=== PATIENT | male | born 1995 | race Caucasian/White ===

== ENCOUNTER 2016-12-15 04:44 | Emergency (ER) | payer OTHER ==
[~2016-12-15] VITALS: Ht 175.3 cm; Wt 83.6 kg
[~2016-12-15 04:44] MED LIST: CIPR-255 PO; FLM4 PO
[2016-12-15 04:47] VITALS: TEMP 37; Ht 175.3 cm; Wt 83.6 kg
[2016-12-15 05:42] LABS: URINE APPEARANCE TURBID (CLEAR); URINE BILIRUBIN NEG (NEG); URINE COLOR YELLOW; URINE EPITHELIAL CELL AUTO >30 /lpf (0-5); URINE NITRITE NEG (NEG); URINE PH >= 9.0 (4.5-7.5); URINE SPECIFIC GRAVITY 1.016 (1.000-1.030); UROBILINOGEN NEG (NEG); ZZUR CULT IF INDIC CLEAN CATCH YES
[2016-12-15 05:54] LABS: MANUAL MICROSCOPIC REQUIRED? NO; REVIEW REQ? YES
[2016-12-15 05:56] LABS: SULFASALICYLIC ACID POS (NEG)
[2016-12-15] MEDS ORDERED: PHENAZOPYRIDINE HCL 200 MG TAB PO STA (06:10)
--- NOTE | 2016-12-15 06:12 | EMERGENCY ROOM VISIT NOTE ---
History First contact with patient: 04:57 Chief Complaint: URINARY SYMPTOMS Stated Complaint: CAN'T URINATE History of Present Illness The patient is a 21 year old male who presents to the Emergency Room with complaints of urinary frequency and urgency and unable to empty his bladder who now Is Unable to Urinate. Patient Has a History of Bladder Infections and Kidney Stones. Patient denies chest pain, dyspnea, fever, chills, vomiting, diarrhea, back pain, testicular pain, penile pain. He follows with Dr. Fernandez from urology at [facility]. Review of Systems See HPI for pertinent positives & negatives. A total of 10 systems reviewed and were otherwise negative. Past Medical/Surgical History Medical Problems: (1) Bladder extrophy Surgical Problems: (1) H/O nephrostomy (2) S/P appendectomy Family History Patient reports no known family medical history. Social History Smoking Status: Current Every Day Smoker Drug Use: marijuana Housing Status: lives with family Occupation Status: employed Current/Historical Medications No Active Prescriptions or Reported Meds Physical Exam Vital Signs Date Time Temp Pulse Resp B/P (MAP) Pulse Ox O2 Delivery O2 Flow Rate FiO2 12/15/16 06:01 77 18 136/83 97 Room Air 12/15/16 04:47 37.0 95 18 144/85 96 Room Air Physical Exam VITALS: Vitals are noted on the nurse's note and reviewed by myself. Vital signs stable. GENERAL: Pleasant male, in no acute distress, nondiaphoretic, well-developed well-nourished. SKIN: The skin was without rashes, erythema, edema, or bruising. There is no tenting of the skin. Capillary reflex less than 2 seconds. HEAD: Normocephalic atraumatic. EARS: External auditory canals clear, tympanic membranes pearly hoskins without erythema or effusion bilaterally. EYES: Pupils equal round and reactive to light and accommodation. Conjunctivae without injection, sclerae without icterus. NOSE: Patent, turbinates without inflammation or discharge. MOUTH: Mucous membranes moist. Pharynx without erythema or exudate. Uvula midline. Airway patent. Tongue does not deviate. NECK: Supple without nuchal rigidity. No lymphadenopathy. No thyromegaly. Cervical spine is nontender. No JVD. HEART: Regular rate and rhythm without murmurs gallops or rubs. LUNGS: Clear to auscultation bilaterally without wheezes, rales or rhonchi. No dullness to percussion. No retractions or accessory muscle use. ABDOMEN: Positive bowel sounds x 4. Normal tympanic percussion. Soft, mild bladder tenderness, nontender, without masses or organomegaly. Leger sign negative. No guarding or rebound tenderness. No CVA tenderness MUSCULOSKELETAL: No muscle atrophy, erythema, or edema noted. NEURO: Patient was alert and oriented to person place and time. Normal sensation to light and sharp touch. No focal neurological deficits. Medical Decision & Procedures Laboratory Results Test 12/15/16 05:28 Urine Color YELLOW Urine Appearance TURBID (CLEAR) Urine pH >= 9.0 (4.5-7.5) Urine Specific [place] 1.016 (1.000-1.030) Urine Protein 2+ (NEG) Urine Glucose (UA) NEG (NEG) Urine Ketones NEG (NEG) Urine Occult Blood 2+ (NEG) Urine Nitrite NEG (NEG) Urine Bilirubin NEG (NEG) Urine Urobilinogen NEG (NEG) Urine Leukocyte Esterase LARGE (NEG) Urine WBC (Auto) >30 /hpf (0-5) Urine RBC (Auto) 5-10 /hpf (0-4) Urine Hyaline Casts (Auto) 0 /lpf (0-5) Urine Epithelial Cells (Auto) >30 /lpf (0-5) Urine Bacteria (Auto) 4+ (NEG) Urine Renal Epithelial Cells /lpf (0-5) Urine Crystals TRIPLE PHOSPHATE Urine Pathogenic Casts /lpf (0) Urine Yeast (Auto) (NONE PRSENT) ED Course Prior records/ancillary studies reviewed. Triage Nursing notes reviewed. The patient's history was concerning for unable to urinate Differential diagnosis: Etiologies such as UTI, obstruction, infections, renal colic, as well as others were entertained. Physical examination findings: As above. ER treatment provided: Bladder scan On reassessment the patient felt better. Diagnostics interpreted by me: The labs revealed urine concerning for infection and sent for culture Bladder scan shows 231 mL's Exam and history seem consistent with UTI. Patient is neurovascular neurologic intact. He is well-appearing. He is afebrile and nontoxic. By the evaluation outlined above emergent etiologies such as obstruction, inflammatory bowel disease, renal colic, as well as others were deemed relatively unlikely. The pt informed about the findings as listed above. All questions were answered and pleased with the treatment. Return instructions were outlined and the patient was discharged in stable condition. Outpatient prescription management: Bactrim, Pyridium Referral: The patient was referred back to their primary care physician for follow-up in 2 to 3 days for a recheck of the current condition. Case reviewed with my attending. Medical Decision As above Medication Reconcilliation Current Medication List: was personally reviewed by me Blood Pressure Screening Patient's blood pressure: Elevated blood pressure Blood pressure disposition: Elevated BP felt to be situational Impression Primary Impression: Urinary tract infection Departure Information Dispostion Home / Self-Care Condition GOOD Prescriptions No Active Prescriptions or Reported Meds Referrals Gallito Alston M.D. (MEDICAL) (PCP) Patient Instructions My [facility] Additional Instructions Trimethoprim-Sulfamethoxazole(Bactrim DS): Take one pill twice daily for 7 days for your urine infection. All antibiotics can cause diarrhea. If this occurs and you feel worse or it does not resolve in 1-2 days follow up with your doctor or return to the Emergency Department as this could be signs of serious underlying problems. Any medication can cause an allergic reaction, stop the pills immediately and return to the ER for rash, hives, breathing difficulties, or swelling. Macrobid(macrodantin) 100mg: Take one pill twice daily for 7 days for your urine infection. All antibiotics can cause diarrhea. If this occurs and you feel worse or it does not resolve in 1-2 days follow up with your doctor or return to the Emergency Department as this could be signs of serious underlying problems. Any medication can cause an allergic reaction, stop the pills immediately and return to the ER for rash, hives, breathing difficulties, or swelling. Pyridium 200mg: Take one pill three times daily as needed for urinary discomfort. This medication will turn your urine orange. This is normal and nothing to be concerned about. Ibuprofen(Motrin, Advil) may be used for fever or pain. Use 600mg every six hours as needed. Take with food. Avoid using more than 2400mg in a 24 hour period. Do not use 2400mg per day for more than three consecutive days without physician direction. Prolonged inappropriate use can lead to stomach upset or ulcers. (AND/OR) Acetaminophen(Tylenol) may be used for fever or pain. Use 1000mg every six hours as needed. Avoid using more than 3000mg in a 24 hour period. Rest and drink plenty of fluids as tolerated. Slow sips of water or sports drinks are recommended instead of large amounts all at once. Continue current medications. Once your stomach is settled start with a clear liquid diet (jello, soup broth, etc.) and then advance as tolerated. You should avoid full, heavy meals for about 24 hrs from the time your symptoms resolved. Return to the ER immediately for worsening or persistent abdominal/back pain, vomiting, fevers, worsening of your condition, or as needed. Follow up with your primary physician within 2-3 days for a recheck of the current condition. Problem Qualifiers Primary Impression: Urinary tract infection Urinary tract infection type: acute cystitis Hematuria presence: with hematuria Qualified Codes: N30.01 - Acute cystitis with hematuria
[2016-12-15] MEDS ORDERED: SULF800T23 PO (06:13)
[2016-12-15] MEDS ORDERED: PHEN-876 PO (06:13)
[2016-12-15] MEDS ORDERED: PHENAZOPYRIDINE HOME PACK 200 MG VIAL PO ONE (06:15)
[2016-12-15] MEDS ORDERED: SEPTRA DS HOME PACK 1 EA VIAL PO ONE (06:15)
[2016-12-15 06:44] VITALS: BP 126/72; PULSE 78; O2SAT 98
--- NOTE | 2016-12-18 18:51 | Pharmacy Progress Note ---
ED Pharmacist Culture FollowUp Date of Service: Dec 18, 2016. Attempted to contact patient again - no answer, no voicemail set-up, no message left.
[2017-02-16] MEDS ORDERED: ULT50X PO (14:09)
[2017-02-16] MEDS ORDERED: CPR500 PO (14:09)
== END 2016-12-15 06:45 | disposition home or self-care (01) ==
LOC: C.EDB 04:45
DX: N30.01 Acute cystitis with hematuria (principal); Q64.10 Exstrophy of urinary bladder, unspecified; F17.200 Nicotine dependence, unspecified, uncomplicated; F12.90 Cannabis use, unspecified, uncomplicated; Z87.442 Personal history of urinary calculi

== ENCOUNTER 2017-02-14 13:45 | Inpatient (IN) | payer OTHER ==
[~2017-02-14] VITALS: Ht 177.8 cm; Wt 84.1 kg
[2017-02-14 14:32] LABS: BASO % 0.2 %; BASO ABS # 0.02 K/uL (0-0.2); COMPLETE YES; EOS % 1.8 %; HEMATOCRIT 35.9 % (42-52); IG% 0.2 %; LYMPH ABS # 2.13 K/uL (1.2-3.4); MEAN CELL VOLUME 82.5 fL (80-100); MEAN CORPUSCULAR HEMOGLOBIN 28.5 pg (25-34); MEAN CORPUSCULAR HGB CONC 34.5 g/dl (32-36); MEAN PLATELET VOLUME 9.3 fL (7.4-10.4); MONO % 11.1 %; NEUT % 65.7 %; PLATELET COUNT 298 K/uL (130-400); RED BLOOD COUNT 4.35 M/uL (4.7-6.1); WHITE BLOOD COUNT 10.16 K/uL (4.8-10.8)
[2017-02-14 14:33] LABS: URINE APPEARANCE CLOUDY (CLEAR); URINE BILIRUBIN NEG (NEG); URINE COLOR YELLOW; URINE NITRITE POS (NEG); URINE SPECIFIC GRAVITY 1.006 (1.000-1.030); UROBILINOGEN NEG (NEG); ZZUR CULT IF INDIC CLEAN CATCH YES
[2017-02-14 14:36] LABS: MANUAL MICROSCOPIC REQUIRED? NO; REVIEW REQ? NO
[2017-02-14 14:52] LABS: BUN/CREATININE RATIO 12.7 (10-20); CALCIUM 9.7 mg/dl (8.5-10.1); CREATININE 1.9 mg/dl (0.60-1.40); POTASSIUM 3.6 mmol/L (3.5-5.1)
[2017-02-14 14:55] LABS: ALB/GLOB RATIO 0.9 (0.9-2)
[2017-02-14] MEDS ORDERED: MoRPHine SULFATE 4 MG/ML 1 ML CARP\\VIAL IV STA ×2 (15:14→16:33)
[2017-02-14] MEDS ORDERED: SODIUM CHLORIDE 0.9% 1000ML 1,000 ML IV ONE (15:14)
[2017-02-14] MEDS ORDERED: ONDANSETRON INJ 2 MG/ML 2 ML VIAL IV STA (15:14)
[2017-02-14] MEDS ORDERED: SODIUM CHLORIDE 0.9% 1000ML 1,000 ML IV STA (15:14)
--- NOTE | 2017-02-14 15:59 | DIAGNOSTIC IMAGING REPORT ---
ABD/PELVIS WITHOUT FOR STONE CT DOSE: 1039.39 mGycm HISTORY: Pain eval for stone, hernia, bladder issue TECHNIQUE: Multiaxial CT images of the abdomen and pelvis were performed without the use of intravenous and oral contrast according to the standard department stone protocol. A dose lowering technique was utilized adhering to the principles of ALARA. COMPARISON STUDY: 04/25/2016 FINDINGS: Lung bases are clear. Minimal dependent atelectasis. Stable bilateral renal hydronephrosis and hydroureters are moderate bladder wall thickening unchanged in the prior study. Small lateral bladder diverticuli also unchanged. Nonobstructive bowel pattern. Pancreas is unremarkable. Evidence for prior appendectomy. Several small inguinal and low pelvic nodes unchanged from the prior exam. IMPRESSION: 1. Chronic bilateral hydroureteronephrosis unchanged from the prior study. 2. No acute or interval change compared to the prior study. 3. No acute process of the abdomen or pelvis. The above report was generated using voice recognition software. It may contain grammatical, syntax or spelling errors. Electronically signed by: Vasu Cleveland M.D. 02/14/2017 3:57 PM Dictated Date/Time: 02/14/2017 3:52 PM
[2017-02-14] MEDS ORDERED: CEFTRIAXONE SOD INJ 1000 MG in DEXTROSE 5% 50ML IV ONE (16:45)
--- NOTE | 2017-02-14 17:28 | EMERGENCY ROOM VISIT NOTE ---
History Report prepared by Brooks: Stacey Barrera Under the Supervision of: Dr. Philipp Gordon M.D. First contact with patient: 14:47 Chief Complaint: ABDOMINAL PAIN Stated Complaint: STOMACH PAINS, DIFFICULTY URINATING Nursing Triage Summary: pt states abdominal pain bilateral lower quadrants with pain in mid back, pain began one week ago, pt states he had a bad week at work and pain has increased since. Pt states difficulty with bowel movements and nausea x 2 days, vomited x 3. Pt denies SHOB, chest pain at this time. Bowel sounds normoactive in all quadrants, pain on palpation all quadrants, more severe in RLQ. History of Present Illness The patient is a 22 year old male who presents to the Emergency Room with complaints of worsening lower mid abdominal pain for the past week. He has had nausea, vomiting, lower back pain, and burning with urination. He rates his pain as an 8/10 in severity. 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 He states that he typically has to push on his abdominal muscle to help him urinate and he has been unable to do that lately because of his pain. He feels like he is unable to fully drain his bladder now. He has a history of kidney stones but states that this does not feel like a stone. The patient denies fevers, chills, testicular pain, groin pain, and any recent trauma or injury. Source of History: patient Onset: 1 week ago Position: abdomen Symptom Intensity: 8/10 Timing: worsening Associated Symptoms: + nausea, + vomiting, + back pain, + urinary symptoms, No fevers, No chills Note: Pt denies testicular pain, groin pain, and any recent trauma or injury. Review of Systems See HPI for pertinent positives & negatives. A total of 10 systems reviewed and were otherwise negative. Past Medical & Surgical Medical Problems: (1) ARF (acute renal failure) (2) Bladder extrophy (3) UTI (urinary tract infection) Surgical Problems: (1) H/O nephrostomy (2) S/P appendectomy Old medical records were reviewed. Nurse's notes were reviewed and I agree with. Family History Patient reports no known family medical history. Social History Smoking Status: Current Every Day Smoker Alcohol Use: occasionally Drug Use: marijuana Marital Status: single Housing Status: lives with roommate Occupation Status: employed Current/Historical Medications No Active Prescriptions or Reported Meds Allergies Coded Allergies: No Known Allergies (Verified , 12/15/16) Physical Exam Vital Signs Date Time Temp Pulse Resp B/P (MAP) Pulse Ox O2 Delivery O2 Flow Rate FiO2 02/14/17 18:46 68 18 134/72 96 Room Air 02/14/17 17:05 37.2 71 16 138/80 96 Room Air 02/14/17 15:35 85 16 137/76 98 Room Air 02/14/17 13:54 37.3 96 18 142/92 99 Room Air Physical Exam General: Well developed well nourished non ill appearing young male in no acute distress, breathing comfortably on room air. Normal speech HEENT: Normal cephalic atraumatic. Pupils are equal round and reactive to light. Extraocular movements are intact. Oropharynx is pink with moist mucous membranes. No swelling of the mouth lips or tongue. Neck: Supple with a midline trachea. No meningeal signs or stiffness, no JVD or bruits. No Stridor. Chest: Clear to auscultation bilaterally. No wheezes or rhonchi. No increased work of breathing. Heart: regular rate and rhythm. Abdomen: Soft, mild to moderately tender to the suprapubic area, nondistended without rebound guarding or rigidity. Previous surgical scars, no hernia felt. Extremities: No cyanosis clubbing or edema. No calf tenderness or assymetry Spine/Back. Non tender to palpation. No CVA tenderness Skin: Good turgor without rashes. Neurologic exam: Cranial nerves two through 12 are intact. Motor and sensation are intact and symmetrical throughout, Medical Decision & Procedures ER Provider Diagnostic Interpretation: Radiology results as stated below per my review and radiologist interpretation: ABD/PELVIS WITHOUT FOR STONE CT DOSE: 1039.39 mGycm HISTORY: Pain eval for stone, hernia, bladder issue TECHNIQUE: Multiaxial CT images of the abdomen and pelvis were performed without the use of intravenous and oral contrast according to the standard department stone protocol. A dose lowering technique was utilized adhering to the principles of ALARA. COMPARISON STUDY: 04/25/2016 FINDINGS: Lung bases are clear. Minimal dependent atelectasis. Stable bilateral renal hydronephrosis and hydroureters are moderate bladder wall thickening unchanged in the prior study. Small lateral bladder diverticuli also unchanged. Nonobstructive bowel pattern. Pancreas is unremarkable. Evidence for prior appendectomy. Several small inguinal and low pelvic nodes unchanged from the prior exam. IMPRESSION: 1. Chronic bilateral hydroureteronephrosis unchanged from the prior study. 2. No acute or interval change compared to the prior study. 3. No acute process of the abdomen or pelvis. The above report was generated using voice recognition software. It may contain grammatical, syntax or spelling errors. Electronically signed by: Vasu Cleveland M.D. 02/14/2017 3:57 PM Dictated Date/Time: 02/14/2017 3:52 PM Laboratory Results 02/14/17 14:10 Red Blood Count 4.35, Mean Corpuscular Volume 82.5, Mean Corpuscular Hemoglobin 28.5, Mean Corpuscular Hemoglobin Concent 34.5, Mean Platelet Volume 9.3, Neutrophils (%) (Auto) 65.7, Lymphocytes (%) (Auto) 21.0, Monocytes (%) (Auto) 11.1, Eosinophils (%) (Auto) 1.8, Basophils (%) (Auto) 0.2, Neutrophils # (Auto ) 6.68, Lymphocytes # (Auto) 2.13, Monocytes # (Auto) 1.13, Eosinophils # (Auto ) 0.18, Basophils # (Auto) 0.02 02/14/17 14:10 Test 02/14/17 14:10 White Blood Count 10.16 K/uL (4.8-10.8) Red Blood Count 4.35 M/uL (4.7-6.1) Hemoglobin 12.4 g/dL (14.0-18.0) Hematocrit 35.9 % (42-52) Mean Corpuscular Volume 82.5 fL (80-100) Mean Corpuscular Hemoglobin 28.5 pg (25-34) Mean Corpuscular Hemoglobin Concent 34.5 g/dl (32-36) Platelet Count 298 K/uL (130-400) Mean Platelet Volume 9.3 fL (7.4-10.4) Neutrophils (%) (Auto) 65.7 % Lymphocytes (%) (Auto) 21.0 % Monocytes (%) (Auto) 11.1 % Eosinophils (%) (Auto) 1.8 % Basophils (%) (Auto) 0.2 % Neutrophils # (Auto) 6.68 K/uL (1.4-6.5) Lymphocytes # (Auto) 2.13 K/uL (1.2-3.4) Monocytes # (Auto) 1.13 K/uL (0.11-0.59) Eosinophils # (Auto) 0.18 K/uL (0-0.5) Basophils # (Auto) 0.02 K/uL (0-0.2) RDW Standard Deviation 39.0 fL (36.4-46.3) RDW Coefficient of Variation 12.9 % (11.5-14.5) Immature Granulocyte % (Auto) 0.2 % Immature Granulocyte # (Auto) 0.02 K/uL (0.00-0.02) Urine Color YELLOW Urine Appearance CLOUDY (CLEAR) Urine pH 7.0 (4.5-7.5) Urine Specific [place] 1.006 (1.000-1.030) Urine Protein NEG (NEG) Urine Glucose (UA) NEG (NEG) Urine Ketones NEG (NEG) Urine Occult Blood 2+ (NEG) Urine Nitrite POS (NEG) Urine Bilirubin NEG (NEG) Urine Urobilinogen NEG (NEG) Urine Leukocyte Esterase LARGE (NEG) Urine WBC (Auto) >30 /hpf (0-5) Urine RBC (Auto) 0-4 /hpf (0-4) Urine Hyaline Casts (Auto) 1-5 /lpf (0-5) Urine Epithelial Cells (Auto) 5-10 /lpf (0-5) Urine Bacteria (Auto) 2+ (NEG) Anion Gap 10.0 mmol/L (3-11) Est Creatinine Clear Calc Drug Dose 63.0 ml/min Estimated GFR () 56.7 Estimated GFR (Non- 49.0 BUN/Creatinine Ratio 12.7 (10-20) Calcium Level 9.7 mg/dl (8.5-10.1) Total Bilirubin 0.6 mg/dl (0.2-1) Direct Bilirubin 0.1 mg/dl (0-0.2) Aspartate Amino Transf (AST/SGOT) 23 U/L (15-37) Alanine Aminotransferase (ALT/SGPT) 28 U/L (12-78) Alkaline Phosphatase 82 U/L (45-117) Total Protein 8.1 gm/dl (6.4-8.2) Albumin 3.9 gm/dl (3.4-5.0) Globulin 4.1 gm/dl (2.5-4.0) Albumin/Globulin Ratio 0.9 (0.9-2) Lipase 113 U/L (73-393) Laboratory studies as stated above per my review. Medications Administered Medications (Trade) Dose Ordered Sig/Tiffany Route Start Time Stop Time Status Last Admin Dose Admin Morphine Sulfate (MoRPHine SULFATE INJ) 4 mg NOW STAT IV 02/14/17 15:14 02/14/17 15:16 DC 02/14/17 15:33 4 MG Ondansetron HCl (Zofran Inj) 4 mg NOW STAT IV 02/14/17 15:14 02/14/17 15:16 DC 02/14/17 15:34 4 MG Sodium Chloride 1,000 ml @ 999 mls/hr Q1H1M STAT IV 02/14/17 15:14 02/14/17 16:14 DC 02/14/17 15:34 999 MLS/HR Sodium Chloride 1,000 ml @ 150 mls/hr Q6H40M ONCE IV 02/14/17 15:14 02/14/17 21:53 02/14/17 15:34 150 MLS/HR Morphine Sulfate (MoRPHine SULFATE INJ) 4 mg NOW STAT IV 02/14/17 16:33 02/14/17 16:34 DC 02/14/17 16:40 4 MG Ceftriaxone Sodium 1000 mg/ Dextrose 60 ml @ 120 mls/hr NOW ONCE IV 02/14/17 16:45 02/14/17 17:14 DC 02/14/17 16:54 120 MLS/HR Acetaminophen (Tylenol Tab) 650 mg Q4H PRN PO 02/14/17 18:00 03/16/17 17:59 02/14/17 18:08 650 MG Morphine Sulfate (MoRPHine SULFATE INJ) 3 mg Q3HWA PRN IV 02/14/17 18:00 02/28/17 17:59 02/14/17 18:08 3 MG ED Course 1501: Past medical records reviewed. The patient was evaluated in room A11A, and a complete history and physical examination were performed. 1514: NSS 1000 ml @ 150 mls/hr IV, NSS 1000 ml @ 999 mls/hr IV, Zofran 4 mg IV, Morphine sulfate 4 mg IV 1631: I reassessed the patient at this time. He is still having pain. I discussed the results and treatment plan with the patient. I answered all pertaining questions that he had. He expressed understanding and verbalized agreement. 1633: Morphine sulfate 4 mg IV 1640: I spoke with Dr. Greenberg. We discussed the patients case. [facility]. 1645: Ceftriaxone Sodium 1000 mg/Dextrose 60 ml @ 120 mls/hr IV - I discussed the most appropriate medication with the ED pharmacist prior to ordering Medical Decision Differential diagnoses includes UTI, hernia, bladder obstruction, diverticulitis , electrolyte or metabolic abnormality. This patient comes in as described above. He was placed in room A 11. He is here for treatment and evaluation of lower abdominal pain. He has a extensive surgical history on his urinary tract as a child. He has not had any follow-up for many years however. He typically he does have to press on his bladder to urinate. He is afebrile. He is back pain but clinically isn't does not have findings to suggest pyelonephritis. IV access established hydrated normal saline he feels he is keeping up with his fluids. Urinalysis was obtained as well as blood work is urinalysis does suggest a UTI with a culture pending. He was given Rocephin 1 g IV after consultation ED pharmacist. CAT scan shows chronic bilateral hydroureteronephrosis. I am concerned however his creatinine is elevated at 1.9 up from 0.7. There may be post renal component. He is having a hard time emptying but is able to. They may also be renal even prerenal component. He think he needs to be observed for further treatment and evaluation. Have consulted Dr. Greenberg, who saw the patient emergency department. Medication Reconcilliation Current Medication List: was personally reviewed by me Blood Pressure Screening Patient's blood pressure: Normal blood pressure Consults Time Called: 1638 Consulting Physician: Dr. Greenberg Returned Call: [address] Greenberg. We discussed the patients case. The patient will be evaluated by the [facility] for further management. Impression Primary Impression: UTI (urinary tract infection) Additional Impressions: Suprapubic abdominal pain Renal failure Scribe Attestation The scribe's documentation has been prepared under my direction and personally reviewed by me in its entirety. I confirm that the note above accurately reflects all work, treatment, procedures, and medical decision making performed by me. Departure Information Dispostion Being Evaluated By Hospitalist Prescriptions No Active Prescriptions or Reported Meds Referrals Gallito Alston M.D. (MEDICAL) (PCP) Patient Instructions My [facility] Problem Qualifiers Primary Impression: UTI (urinary tract infection) Urinary tract infection type: site unspecified Hematuria presence: with hematuria Qualified Codes: N39.0 - Urinary tract infection, site not specified ; R31.9 - Hematuria, unspecified Additional Impressions: Renal failure Renal failure chronicity: unspecified chronicity Qualified Codes: N19 - Unspecified kidney failure
[2017-02-14] MEDS ORDERED: ACETAMINOPHEN 325 MG TAB PO PRN (18:00)
[2017-02-14] MEDS ORDERED: ALUMINUM/MAGNESIUM/SIMETH (MAALOX MAX) 30 ML UDC PO PRN (18:00)
[2017-02-14] MEDS ORDERED: MAGNESIUM HYDROXIDE SUSP 30 ML UDC PO PRN (18:00)
[2017-02-14] MEDS ORDERED: ONDANSETRON INJ 2 MG/ML 2 ML VIAL IV PRN (18:00)
[2017-02-14] MEDS ORDERED: MoRPHine SULFATE 2 MG/ML CARP ONE ×2 (18:03)
[2017-02-14] MEDS: MoRPHine SULFATE 4 MG/ML 1 ML CARP\\VIAL IV PRN ×2 (18:08→21:50)
[2017-02-14 19:30] VITALS: BP 130/83; PULSE 63; TEMP 36.5; O2SAT 96; Ht 177.8 cm; Wt 84.1 kg
[2017-02-14] MEDS: SODIUM CHLORIDE 0.9% 1000ML 1,000 ML IV SCH (20:08)
--- NOTE | 2017-02-14 20:19 | HISTORY & PHYSICAL EXAMINATION ---
DATE OF ADMISSION: 02/14/2017 CHIEF COMPLAINT: Lower abdominal pain. HISTORY OF PRESENT ILLNESS: This is a 22-year-old male with past medical history significant for exstrophy of bladder status post surgery, last surgery was in 2013 at [place], history of bilateral hydronephrosis, history of recurrent UTIs, urinary retention, hematuria, history of nephrolithiasis, who comes in for lower abdominal pain. The patient says the abdominal pain is going for about a week, was mild in nature, but he had some heavy work over the last few days and the pain has increased to 6/10 in severity, radiating to his back and he also has some nausea and couple of episode of vomiting. He has had UTIs in the past, but never had this kind of abdominal pain. Denies any fever, chills. He is also having difficulty peeing. He used to straight cath in the past , but no longer uses and he is able to pee himself okay, but the last few days, he is having some difficulty peeing. Denies any chest pain, no shortness of breath, no cough, no headaches, no dizziness, no blurred visions, no sore throat, no difficulty swallowing, no blood in the urine, no blood in the stools. Normal bladder and bowel movements. Appetite is not good for the last few days. Lives with room mates. ALLERGIES: No known drug allergies. PAST MEDICAL HISTORY: As mentioned above. PAST SURGICAL HISTORY: Cystoscopy, multiple ureteral reconstructions at [place], reconstruction of the bladder neck. He has history of nephrostomy tubes. Appendectomy, inguinal hernia repair. MEDICATIONS: Currently, the patient is not on any medications. FAMILY HISTORY: Significant for brother had heart disorder, sister has bipolar, mother has migraines. SOCIAL HISTORY: No smoking history. Alcohol occasional. No drug use. REVIEW OF SYMPTOMS: As per HPI. PHYSICAL EXAMINATION: GENERAL: The patient is of moderate built, not in distress. VITAL SIGNS: Temperature 37.2, pulse 71, respiratory rate 16, blood pressure 138/80, oxygen 96% on room air. HEENT: No pallor, no icterus. Pupils equal, round, and reactive to light. NECK: No JVD, no neck masses, no carotid bruits. Supple. CARDIOVASCULAR: S1, S2 heard, regular rate and rhythm, no murmur, no gallop. RESPIRATORY SYSTEM: Normal AP diameter. No accessory muscle use. No wheezing, no crackles. ABDOMEN: Soft, bowel sounds present. Mild right lower quadrant tenderness and no guarding. No rigidity. No distention. CENTRAL NERVOUS SYSTEM: Cranial nerves II through XII grossly intact. Nonfocal. EXTREMITIES: No edema. No erythema. LABORATORIES: WBC 10.1, hemoglobin 12.4, hematocrit 35.9, platelets 298. Sodium 140, potassium 3.6, , bicarb 21, BUN 24, creatinine 1.9, serum glucose 96, calcium 9.7. Total bilirubin 0.6, AST 25, ALT 24, and alkaline phosphatase 76. Lipase 113. Urinalysis positive for nitrite and leukocyte esterase. IMAGING DATA: CT of the abdomen and pelvis shows chronic bilateral hydroureteronephrosis unchanged from a prior study. No acute process of abdomen or pelvis. ASSESSMENT AND PLAN: This is a 22-year-old male, with history of multiple bladder surgeries, who presents with abdominal pain and possible urinary tract infection. 1. Abdominal pain, most likely from urinary tract infection and also having difficulty urinating, possible ureteral stricture from the surgeries. CT of abdomen and pelvis shows chronic bilateral hydroureteronephrosis. We will place him on IV Rocephin, follow the cultures and he is not following with a urologist, so we will consult urology for further recommendations and opinion. 2.Arf presented with cr 1.9. Mostly from above. On fluids and antibiotics will f/u labs 2. Deep venous thrombosis prophylaxis. SCDs for now. 3. Disposition: Admit to medical floor. Expect to discharge home and follow with family doctor. Level 1, full code. MTDD
[2017-02-14] MEDS ORDERED: IV FLUIDS COMPLETED PRN (20:30)
[2017-02-14] MEDS ORDERED: HYDROmorphone INJ 0.5 MG/0.5 ML SYR IV ONE (22:31)
[2017-02-14] MEDS ORDERED: TRAMADOL HCL 50 MG TAB PO PRN (22:45)
[2017-02-14] MEDS ORDERED: PHENAZOPYRIDINE HCL 100 MG TAB PO ONE (22:48)
[2017-02-14 23:30] VITALS: BP 130/83; PULSE 68; TEMP 36.5; O2SAT 97
[2017-02-15 00:05] VITALS: O2SAT 96
[2017-02-15] MEDS ORDERED: INFLUENZA VIRUS QUAD VACCINE 0.5 ML SYR IM. ONE (01:45)
[2017-02-15] MEDS ORDERED: INFLUENZA ADMINISTRATION CHARGE ONE (01:45)
[2017-02-15] MEDS: HYDROmorphone INJ 0.5 MG/0.5 ML SYR IV PRN ×7 (02:08→21:38)
[2017-02-15] MEDS: SODIUM CHLORIDE 0.9% 1000ML 1,000 ML IV SCH ×3 (04:15→23:26)
[2017-02-15 05:36] LABS: BASO % 0.3 %; BASO ABS # 0.02 K/uL (0-0.2); COMPLETE YES; EOS % 3.3 %; HEMATOCRIT 33.9 % (42-52); IG% 0.2 %; LYMPH % 28.4 %; LYMPH ABS # 1.87 K/uL (1.2-3.4); MEAN CELL VOLUME 84.1 fL (80-100); MEAN CORPUSCULAR HEMOGLOBIN 27.3 pg (25-34); MEAN CORPUSCULAR HGB CONC 32.4 g/dl (32-36); MEAN PLATELET VOLUME 9.1 fL (7.4-10.4); MONO % 13.1 %; NEUT % 54.7 %; PLATELET COUNT 225 K/uL (130-400); RED BLOOD COUNT 4.03 M/uL (4.7-6.1); WHITE BLOOD COUNT 6.58 K/uL (4.8-10.8)
[2017-02-15 06:06] LABS: BUN/CREATININE RATIO 11.1 (10-20); CALCIUM 8.8 mg/dl (8.5-10.1); CREATININE 1.8 mg/dl (0.60-1.40); MAGNESIUM 1.9 mg/dl (1.8-2.4); POTASSIUM 3.5 mmol/L (3.5-5.1)
[2017-02-15 07:06] VITALS: BP 110/70; PULSE 65; TEMP 37; O2SAT 97
--- NOTE | 2017-02-15 14:30 | Progress Note ---
Internal Med Progress Note Date of Service: Feb 15, 2017. Provider Documentation: SUBJECTIVE: Seen and examined at bedside States flank pain resolved but still has R> L Lower quadrant abdominal pain Nausea resolved Denies hematuria, CP, SOB, diarrhea Feels better OBJECTIVE: Vital Signs-as noted below Physical Exam: General Appearance:Moderately built and nourished, no apparent distress Head: normocephalic, Atraumatic Eyes: normal inspection, EOMI, PERRL Neck: supple, Trachea midline Respiratory/Chest: Normal breath sounds, CTA Cardiovascular: S1, S2, No murmur Abdomen/GI:Soft, RLQ tender, Bowel sounds present Extremities/Musculoskelatal:normal inspection, no edema Neurologic/Psych:grossly no focal neurological deficits Skin: normal color, warm, Surgical scars on abdomen Lab data as noted below. ASSESSMENT & PLAN: Patient is a 22 yr-old male, with PMH of multiple bladder surgeries for bladder extrophy, who presents with abdominal pain, ARF and possible urinary tract infection. Abdominal pain: Likely secondary to UTI DD:ureteral stricture CT ABD: Chronic B/L Hydroureteronephrosis, No acute changes H/O multiple bladder surgeries for bladder extrophy Urine culture pending Continue Gomez for now Continue IV Rocephin Urology consulted PATRICK: Cr 1.9>>>1.8 Continue IV fluids monitor renal function DVT px: SCDs Encourage to ambulate Code Status: Full Code Disposition: Plan to discharge home when stable Vital Signs: Date Time Temp Pulse Resp B/P (MAP) Pulse Ox O2 Delivery O2 Flow Rate FiO2 02/15/17 08:00 Room Air 02/15/17 07:06 37.0 65 20 110/70 (83) 97 Room Air 02/15/17 00:05 96 Room Air 02/14/17 23:30 36.5 68 20 130/83 (99) 97 Room Air 02/14/17 19:30 36.5 63 20 130/83 96 Room Air 02/14/17 18:46 68 18 134/72 96 Room Air 02/14/17 17:05 37.2 71 16 138/80 96 Room Air 02/14/17 15:35 85 16 137/76 98 Room Air Lab Results: Results Past 24 Hours Test 02/15/17 05:04 Range/Units White Blood Count 6.58 4.8-10.8 K/uL Red Blood Count 4.03 4.7-6.1 M/uL Hemoglobin 11.0 14.0-18.0 g/dL Hematocrit 33.9 42-52 % Mean Corpuscular Volume 84.1 80-100 fL Mean Corpuscular Hemoglobin 27.3 25-34 pg Mean Corpuscular Hemoglobin Concent 32.4 32-36 g/dl Platelet Count 225 130-400 K/uL Mean Platelet Volume 9.1 7.4-10.4 fL Neutrophils (%) (Auto) 54.7 % Lymphocytes (%) (Auto) 28.4 % Monocytes (%) (Auto) 13.1 % Eosinophils (%) (Auto) 3.3 % Basophils (%) (Auto) 0.3 % Neutrophils # (Auto) 3.60 1.4-6.5 K/uL Lymphocytes # (Auto) 1.87 1.2-3.4 K/uL Monocytes # (Auto) 0.86 0.11-0.59 K/uL Eosinophils # (Auto) 0.22 0-0.5 K/uL Basophils # (Auto) 0.02 0-0.2 K/uL RDW Standard Deviation 40.3 36.4-46.3 fL RDW Coefficient of Variation 13.2 11.5-14.5 % Immature Granulocyte % (Auto) 0.2 % Immature Granulocyte # (Auto) 0.01 0.00-0.02 K/uL Sodium Level 142 136-145 mmol/L Potassium Level 3.5 3.5-5.1 mmol/L Chloride Level 109 98-107 mmol/L Carbon Dioxide Level 26 21-32 mmol/L Anion Gap 7.0 3-11 mmol/L Blood Urea Nitrogen 20 7-18 mg/dl Creatinine 1.80 0.60-1.40 mg/dl Est Creatinine Clear Calc Drug Dose 66.5 ml/min Estimated GFR () 60.6 Estimated GFR (Non- 52.3 BUN/Creatinine Ratio 11.1 10-20 Random Glucose 83 70-99 mg/dl Calcium Level 8.8 8.5-10.1 mg/dl Magnesium Level 1.9 1.8-2.4 mg/dl
[2017-02-15 15:03] VITALS: BP 143/82; PULSE 65; TEMP 36.8; O2SAT 98
[2017-02-15] MEDS: CEFTRIAXONE SOD INJ 1 GM in DEXTROSE 5% ADD-VANTAGE 50ML 50 ML IV SCH (16:18)
[2017-02-15] MEDS: PHENAZOPYRIDINE HCL 100 MG TAB PO PRN (21:38)
[2017-02-15 23:21] VITALS: BP 143/88; PULSE 56; TEMP 36.7; O2SAT 98
[2017-02-16] MEDS: HYDROmorphone INJ 0.5 MG/0.5 ML SYR IV PRN ×4 (00:38→12:18)
[2017-02-16 07:16] VITALS: BP 125/70; PULSE 62; TEMP 36.6; O2SAT 96
[2017-02-16 07:17] LABS: BASO % 0.4 %; BASO ABS # 0.02 K/uL (0-0.2); COMPLETE YES; EOS % 4.9 %; HEMATOCRIT 34.8 % (42-52); IG% 0.4 %; LYMPH % 40.9 %; LYMPH ABS # 2.27 K/uL (1.2-3.4); MEAN CELL VOLUME 82.5 fL (80-100); MEAN CORPUSCULAR HEMOGLOBIN 28.2 pg (25-34); MEAN CORPUSCULAR HGB CONC 34.2 g/dl (32-36); MEAN PLATELET VOLUME 9.2 fL (7.4-10.4); MONO % 13.9 %; NEUT % 39.5 %; PLATELET COUNT 219 K/uL (130-400); RED BLOOD COUNT 4.22 M/uL (4.7-6.1); WHITE BLOOD COUNT 5.55 K/uL (4.8-10.8)
[2017-02-16 07:49] LABS: BUN/CREATININE RATIO 10.4 (10-20); CALCIUM 8.5 mg/dl (8.5-10.1); CREATININE 1.4 mg/dl (0.60-1.40); MAGNESIUM 1.7 mg/dl (1.8-2.4); POTASSIUM 3.2 mmol/L (3.5-5.1)
--- NOTE | 2017-02-16 08:22 | Urology Consultation ---
History General Date of Service: Feb 16, 2017. Chief Complaint: UTI, neurogenic bladder Primary Care Physician: Gallito Alston M.D. (MEDICAL) Pt seen a urologist before?: Yes If yes, why?: Dr. Chávez, Apr 2016 History of Present Illness 22 yo male, seen once by our service in Apr 2016, admitted for suspected UTI characterized by malaise and worsening lower abdominal pain and tenderness. His history is significant for bladder exstrophy managed surgically as a child with chronic bilateral hydro. On admission his Cr had risen to 1.9, currently back down to 1.4. He notes he feels overall better, tolerating a regular diet. Gomez is in place with clear urine drainage. Urology consultation is requested to assist with his inpatient care seen his urologic history. Imaging Imaging: CT Laboratory Last 24 Hours Test 02/16/17 07:02 White Blood Count 5.55 K/uL Red Blood Count 4.22 M/uL Hemoglobin 11.9 g/dL Hematocrit 34.8 % Mean Corpuscular Volume 82.5 fL Mean Corpuscular Hemoglobin 28.2 pg Mean Corpuscular Hemoglobin Concent 34.2 g/dl Platelet Count 219 K/uL Mean Platelet Volume 9.2 fL Neutrophils (%) (Auto) 39.5 % Lymphocytes (%) (Auto) 40.9 % Monocytes (%) (Auto) 13.9 % Eosinophils (%) (Auto) 4.9 % Basophils (%) (Auto) 0.4 % Neutrophils # (Auto) 2.20 K/uL Lymphocytes # (Auto) 2.27 K/uL Monocytes # (Auto) 0.77 K/uL Eosinophils # (Auto) 0.27 K/uL Basophils # (Auto) 0.02 K/uL RDW Standard Deviation 39.1 fL RDW Coefficient of Variation 12.9 % Immature Granulocyte % (Auto) 0.4 % Immature Granulocyte # (Auto) 0.02 K/uL Sodium Level 142 mmol/L Potassium Level 3.2 mmol/L Chloride Level 108 mmol/L Carbon Dioxide Level 26 mmol/L Anion Gap 8.0 mmol/L Blood Urea Nitrogen 15 mg/dl Creatinine 1.40 mg/dl Est Creatinine Clear Calc Drug Dose 85.5 ml/min Estimated GFR () 82.1 Estimated GFR (Non- 70.8 BUN/Creatinine Ratio 10.4 Random Glucose 84 mg/dl Calcium Level 8.5 mg/dl Magnesium Level 1.7 mg/dl Problem List Medical Problems: (1) Renal failure Status: Acute (2) Suprapubic abdominal pain Status: Acute (3) Urinary tract infection Status: Acute Past History asthma, kidney stones, urinary tract infection, other Past Surgical History: appendectomy, other (repair of bladder exstrophy) Family History Patient reports no known family medical history. Social History Hx Tobacco Use In Past Year?: Yes Smoking: less than 1 pack/day, other Alcohol: socially Drug use: marijuana Marital status: single Occupation status: employed Immunizations History of Tetanus Vaccine?: Yes Tetanus Immunization Date: Nov 27, 2000 History of Hepatitis B Vaccine: Yes Hepatitis Immunization Date: 1995 Allergies Coded Allergies: No Known Allergies (Verified , 12/15/16) Medications Home Medications: Home Meds and Scripts Medications Dose Route/Sig Max Daily Dose Days Date Category No Active Prescriptions or Reported Medications Rx Inpatient Medications: Current Inpatient Medications Medications (Trade) Dose Ordered Sig/Tiffany Route Start Time Stop Time Status Last Admin Dose Admin Acetaminophen (Tylenol Tab) 650 mg Q4H PRN PO 02/14/17 18:00 03/16/17 17:59 02/14/17 18:08 650 MG Al Hydrox/Mg Hydrox/Simethicone (Maalox Max Susp) 15 ml Q4H PRN PO 02/14/17 18:00 03/16/17 17:59 Magnesium Hydroxide (Milk Of Magnesia Susp) 30 ml Q6H PRN PO 02/14/17 18:00 03/16/17 17:59 Ondansetron HCl (Zofran Inj) 4 mg Q6H PRN IV 02/14/17 18:00 03/16/17 17:59 Sodium Chloride 1,000 ml @ 100 mls/hr Q10H IV 02/14/17 18:00 03/16/17 17:59 02/15/17 23:26 100 MLS/HR Ceftriaxone Sodium 1 gm/ Dextrose 50 ml @ 100 mls/hr Q24H IV 02/15/17 16:00 02/24/17 15:59 02/15/17 16:18 100 MLS/HR Miscellaneous (Iv Fluids Completed) 1 ea PRN PRN N/A 02/14/17 20:30 02/14/18 20:29 Hydromorphone HCl (Dilaudid Inj) 0.5 mg Q3H PRN IV 02/14/17 22:45 02/28/17 22:44 02/16/17 05:27 0.5 MG Tramadol HCl (Ultram Tab) not relieved by tylenol @ Q6H PRN PO 02/14/17 22:45 03/16/17 22:44 Phenazopyridine HCl (Pyridium Tab) 100 mg TID PRN PO 02/14/17 23:00 03/16/17 22:59 02/15/17 21:38 100 MG Review of Systems Review of Systems Constitutional: No fever, No chills Eyes: No blurred vision, No double vision Neurological: No passing out, No numbness/tingling Endocrine: No excessive thirst Gastrointestinal: No nausea, No vomiting Cardiovascular: No chest pain, No angina, No irregular heartbeat Respiratory: No shortness of breath, No coughing up blood Skin: No boils, No dry skin Musculoskeletal: No back pain Ears / Nose / Throat: No hearing loss Psychologic / Mental: No trouble remembering, No difficulty sleeping Male : + see HPI Physical Exam Vital Signs: Vital Signs Past 12 Hours Date Time Temp Pulse Resp B/P (MAP) Pulse Ox O2 Delivery O2 Flow Rate FiO2 02/16/17 07:37 Room Air 02/16/17 07:16 36.6 62 20 125/70 (88) 96 Room Air 02/16/17 00:00 Room Air 02/15/17 23:21 36.7 56 20 143/88 (106) 98 Room Air Physical Exam: General Appearance: WD/WN, no apparent distress ENT: normal ENT inspection, hearing grossly normal Neck: supple, no adenopathy Respiratory/Chest: no respiratory distress, no accessory muscle use Cardiovascular: no JVD Gastrointestinal: Abdomen: normal abdomen Incision: normal incision, clean/dry/intact (well healed lower abdominal) Renal: normal renal Liver: normal liver Spleen: normal spleen Genitourinary - Male: Penis: circumcised, pertinent finding (well healed) Urethral Meatus: normal urethral meatus Testes: normal testes Scrotum: pertinent finding (hypoplastic scrotum) Neurologic/Psychiatric: alert, oriented x 3 Skin: normal color Assessment & Plan Assessment & Plan A/P 22 yo male with bladder exstrophy / neurogenic bladder, UTI. Doing well, improved Cr, afebrile - hopefully should be able to be discharged home later today on a ~ 10 day course of antibiotics. Would recommend the patient have a trial of void as an inpatient and consider CIC at least twice a day on discharge. He can contact our office for supplies should he have insufficient amounts of catheters at home. The importance of regular follow-up with his diagnosis with a urologist to avoid ESRD, the need for dialysis or from urosepsis is emphasized. Will arrange for outpatient f/u in the next few weeks with myself to formulate a long -term management plan of his neurogenic bladder. Thank you for allowing us to participate in this patient's acute care. Please contact our service with any questions or concerns.
[2017-02-16] MEDS: SODIUM CHLORIDE 0.9% 1000ML 1,000 ML IV SCH (08:54)
[2017-02-16] MEDS: PHENAZOPYRIDINE HCL 100 MG TAB PO PRN (11:35)
[2017-02-16] MEDS: CEFTRIAXONE SOD INJ 1 GM in DEXTROSE 5% ADD-VANTAGE 50ML 50 ML IV SCH (14:00)
--- NOTE | 2017-02-16 14:05 | Progress Note ---
Internal Med Progress Note Date of Service: Feb 16, 2017. Provider Documentation: SUBJECTIVE: Seen and examined at bedside Feels well Abd pain much improved Denies hematuria, CP, SOB, diarrhea OBJECTIVE: Vital Signs-as noted below Physical Exam: General Appearance:Moderately built and nourished, no apparent distress Head: normocephalic, Atraumatic Eyes: normal inspection, EOMI, PERRL Neck: supple, Trachea midline Respiratory/Chest: Normal breath sounds, CTA Cardiovascular: S1, S2, No murmur Abdomen/GI:Soft, non tender, Bowel sounds present Extremities/Musculoskelatal:normal inspection, no edema Neurologic/Psych:grossly no focal neurological deficits Skin: normal color, warm, Surgical scars on abdomen Lab data as noted below. ASSESSMENT & PLAN: Patient is a 22 yr-old male, with PMH of multiple bladder surgeries for bladder extrophy, who presents with abdominal pain, ARF and possible urinary tract infection. Abdominal pain: Likely secondary to Bladder Extrophy/Neurogenic bladder UTI ruled out CT ABD: Chronic B/L Hydroureteronephrosis, No acute changes H/O multiple bladder surgeries for bladder extrophy Urine culture: Negative DC Gomez On IV Rocephin # 2 Appreciate Urology Input Plan to discharge home today. Advised CIC at least twice a day on discharge and follow up with Urologist on Mar 07 at 2:30pm PATRICK: Cr 1.9>>>1.8>>>1.4 Continue IV fluids monitor renal function DVT px: SCDs Encourage to ambulate Code Status: Full Code Disposition: Plan to discharge home today Follow up with for Primary Care on 02/21/17 at 10:00 AM Follow up with your Urologist in 2 weeks as scheduled Complete the antibiotic course as prescribed Seek immediate medical attention if your symptoms reoccur or worsen Clean Intermittent catheterization at least twice a day as advised by your Urologist Vital Signs: Date Time Temp Pulse Resp B/P (MAP) Pulse Ox O2 Delivery O2 Flow Rate FiO2 02/16/17 07:37 Room Air 02/16/17 07:16 36.6 62 20 125/70 (88) 96 Room Air 02/16/17 00:00 Room Air 02/15/17 23:21 36.7 56 20 143/88 (106) 98 Room Air 02/15/17 20:00 Room Air 02/15/17 16:00 Room Air 02/15/17 15:03 36.8 65 20 143/82 (102) 98 Room Air Lab Results: Results Past 24 Hours Test 02/16/17 07:02 Range/Units White Blood Count 5.55 4.8-10.8 K/uL Red Blood Count 4.22 4.7-6.1 M/uL Hemoglobin 11.9 14.0-18.0 g/dL Hematocrit 34.8 42-52 % Mean Corpuscular Volume 82.5 80-100 fL Mean Corpuscular Hemoglobin 28.2 25-34 pg Mean Corpuscular Hemoglobin Concent 34.2 32-36 g/dl Platelet Count 219 130-400 K/uL Mean Platelet Volume 9.2 7.4-10.4 fL Neutrophils (%) (Auto) 39.5 % Lymphocytes (%) (Auto) 40.9 % Monocytes (%) (Auto) 13.9 % Eosinophils (%) (Auto) 4.9 % Basophils (%) (Auto) 0.4 % Neutrophils # (Auto) 2.20 1.4-6.5 K/uL Lymphocytes # (Auto) 2.27 1.2-3.4 K/uL Monocytes # (Auto) 0.77 0.11-0.59 K/uL Eosinophils # (Auto) 0.27 0-0.5 K/uL Basophils # (Auto) 0.02 0-0.2 K/uL RDW Standard Deviation 39.1 36.4-46.3 fL RDW Coefficient of Variation 12.9 11.5-14.5 % Immature Granulocyte % (Auto) 0.4 % Immature Granulocyte # (Auto) 0.02 0.00-0.02 K/uL Sodium Level 142 136-145 mmol/L Potassium Level 3.2 3.5-5.1 mmol/L Chloride Level 108 98-107 mmol/L Carbon Dioxide Level 26 21-32 mmol/L Anion Gap 8.0 3-11 mmol/L Blood Urea Nitrogen 15 7-18 mg/dl Creatinine 1.40 0.60-1.40 mg/dl Est Creatinine Clear Calc Drug Dose 85.5 ml/min Estimated GFR () 82.1 Estimated GFR (Non- 70.8 BUN/Creatinine Ratio 10.4 10-20 Random Glucose 84 70-99 mg/dl Calcium Level 8.5 8.5-10.1 mg/dl Magnesium Level 1.7 1.8-2.4 mg/dl
[2017-02-16] MEDS ORDERED: CPR500 PO (14:09)
[2017-02-16] MEDS ORDERED: ULT50X PO (14:09)
--- NOTE | 2017-02-16 14:10 | Discharge Instructions ---
Discharge Instructions Date of Service Feb 16, 2017. Admission Reason for Admission: Arf, Uti Discharge Discharge Diagnosis / Problem: PATRICK, Neurogenic Bladder Discharge Goals Goal(s): Decrease discomfort, Improve function Activity Recommendations Activity Limitations: resume your previous activity Exercise/Sports Limitations: as tolerated . Instructions / Follow-Up Instructions / Follow-Up Follow up with for Primary Care on 02/21/17 at 10:00 AM Follow up with your Urologist in 2 weeks as scheduled Complete the antibiotic course as prescribed Seek immediate medical attention if your symptoms reoccur or worsen Clean Intermittent catheterization at least twice a day as advised by your Urologist Current Hospital Diet Patient's current hospital diet: Regular Diet Discharge Diet Recommended Diet: Regular Diet Pending Studies Studies pending at discharge: no Medical Emergencies . Who to Call and When: Medical Emergencies: If at any time you feel your situation is an emergency, please call 911 immediately. . Non-Emergent Contact Non-Emergency issues call your: Primary Care Provider, Urologist Call Non-Emergent contact if: you have a fever, your pain is not controlled, your pain is worsening, your pain is unusual for you, your pain is concerning you, you have any medication questions . . "Provider Documentation" section prepared by Rodrigo Pinto. . VTE Core Measure Inpt VTE Proph given/why not?: SCD's
--- NOTE | 2017-02-16 14:14 | Discharge Summary ---
Discharge Summary Date of Service Feb 16, 2017. Discharge Summary Admission Date: Feb 14, 2017 at 18:06 Discharge Disposition: Home Principal Diagnosis: PATRICK, Neurogenic Bladder, Obstructive Uropathy Procedures: CT ABD: 1. Chronic bilateral hydroureteronephrosis unchanged from the prior study. 2. No acute or interval change compared to the prior study. 3. No acute process of the abdomen or pelvis. Consultations: Urology Pending Studies/Follow-Up: Follow up with for Primary Care on 02/21/17 at 10:00 AM Follow up with your Urologist in 2 weeks as scheduled Complete the antibiotic course as prescribed Seek immediate medical attention if your symptoms reoccur or worsen Clean Intermittent catheterization at least twice a day as advised by your Urologist Medication Reconciliation New Medications: Ciprofloxacin (Ciprofloxacin HCl) 500 Mg Tab 500 MG PO BID for 5 Days, #10 TABS Tramadol HCl (Tramadol HCl) 50 Mg Tab 50 MG PO Q6H PRN for Pain for 3 Days, #12 TAB Admission Information HPI (per Admitting provider): CHIEF COMPLAINT: Lower abdominal pain. HISTORY OF PRESENT ILLNESS: This is a 22-year-old male with past medical history significant for exstrophy of bladder status post surgery, last surgery was in 2013 at [place], history of bilateral hydronephrosis, history of recurrent UTIs, urinary retention, hematuria, history of nephrolithiasis, who comes in for lower abdominal pain. The patient says the abdominal pain is going for about a week, was mild in nature, but he had some heavy work over the last few days and the pain has increased to 6/10 in severity, radiating to his back and he also has some nausea and couple of episode of vomiting. He has had UTIs in the past, but never had this kind of abdominal pain. Denies any fever, chills. He is also having difficulty peeing. He used to straight cath in the past , but no longer uses and he is able to pee himself okay, but the last few days, he is having some difficulty peeing. Denies any chest pain, no shortness of breath, no cough, no headaches, no dizziness, no blurred visions, no sore throat, no difficulty swallowing, no blood in the urine, no blood in the stools. Normal bladder and bowel movements. Appetite is not good for the last few days. Lives with room mates. Physical Exam (per Admitting): PHYSICAL EXAMINATION: GENERAL: The patient is of moderate built, not in distress. VITAL SIGNS: Temperature 37.2, pulse 71, respiratory rate 16, blood pressure 138/80, oxygen 96% on room air. HEENT: No pallor, no icterus. Pupils equal, round, and reactive to light. NECK: No JVD, no neck masses, no carotid bruits. Supple. CARDIOVASCULAR: S1, S2 heard, regular rate and rhythm, no murmur, no gallop. RESPIRATORY SYSTEM: Normal AP diameter. No accessory muscle use. No wheezing, no crackles. ABDOMEN: Soft, bowel sounds present. Mild right lower quadrant tenderness and no guarding. No rigidity. No distention. CENTRAL NERVOUS SYSTEM: Cranial nerves II through XII grossly intact. Nonfocal. EXTREMITIES: No edema. No erythema. Hospital Course Patient is a 22 yr-old male, with PMH of multiple bladder surgeries for bladder extrophy, who presents with abdominal pain, ARF and possible urinary tract infection. Abdominal pain: Likely secondary to Bladder Extrophy/Neurogenic bladder UTI ruled out CT ABD: Chronic B/L Hydroureteronephrosis, No acute changes H/O multiple bladder surgeries for bladder extrophy Urine culture: Negative DC Gomez On IV Rocephin # 2 Appreciate Urology Input Plan to discharge home today. Advised CIC at least twice a day on discharge and follow up with Urologist on Mar 07 at 2:30pm PATRICK: Cr 1.9>>>1.8>>>1.4 Continue IV fluids monitor renal function DVT px: SCDs Encourage to ambulate Code Status: Full Code Disposition: Plan to discharge home today Follow up with for Primary Care on 02/21/17 at 10:00 AM Follow up with your Urologist in 2 weeks as scheduled Complete the antibiotic course as prescribed Seek immediate medical attention if your symptoms reoccur or worsen Clean Intermittent catheterization at least twice a day as advised by your Urologist Total time spent on discharge = 32 minutes This includes examination of the patient, discharge planning, medication reconciliation, and communication with other providers. Discharge Instructions Discharge Instructions Date of Service Feb 16, 2017. Admission Reason for Admission: Arf, Uti Discharge Discharge Diagnosis / Problem: PATRICK, Neurogenic Bladder Discharge Goals Goal(s): Decrease discomfort, Improve function Activity Recommendations Activity Limitations: resume your previous activity Exercise/Sports Limitations: as tolerated . Instructions / Follow-Up Instructions / Follow-Up Follow up with for Primary Care on 02/21/17 at 10:00 AM Follow up with your Urologist in 2 weeks as scheduled Complete the antibiotic course as prescribed Seek immediate medical attention if your symptoms reoccur or worsen Clean Intermittent catheterization at least twice a day as advised by your Urologist Current Hospital Diet Patient's current hospital diet: Regular Diet Discharge Diet Recommended Diet: Regular Diet Pending Studies Studies pending at discharge: no Medical Emergencies . Who to Call and When: Medical Emergencies: If at any time you feel your situation is an emergency, please call 911 immediately. . Non-Emergent Contact Non-Emergency issues call your: Primary Care Provider, Urologist Call Non-Emergent contact if: you have a fever, your pain is not controlled, your pain is worsening, your pain is unusual for you, your pain is concerning you, you have any medication questions . . "Provider Documentation" section prepared by Rodrigo Pinto. . VTE Core Measure Inpt VTE Proph given/why not?: SCD's
[2017-02-16] MEDS ORDERED: POTASSIUM CHLORIDE 20 MEQ TABCR PO ONE (14:15)
[2017-02-16 14:39] VITALS: BP 125/70; PULSE 62; TEMP 36.6; O2SAT 96
== END 2017-02-16 15:45 | disposition home or self-care (01) | DRG 699 ==
LOC: C.EDB 13:47 → C.MS2W 18:06 → EDBEDREQ 18:07 → ENRESERV 18:35
PROVIDERS: ADMIT Internal Medicine; ATTEND Internal Medicine
DX: N31.9 Neuromuscular dysfunction of bladder, unspecified (principal); N17.9 Acute kidney failure, unspecified; N13.1 Hydronephrosis with ureteral stricture, not elsewhere classified; Z87.440 Personal history of urinary (tract) infections; Z87.442 Personal history of urinary calculi; Z87.718 Personal history of other specified (corrected) congenital malformations of genitourinary system; Z98.890 Other specified postprocedural states; Z82.49 Family history of ischemic heart disease and other diseases of the circulatory system; Z81.8 Family history of other mental and behavioral disorders

== ENCOUNTER 2017-03-02 01:55 | Inpatient (IN) | payer OTHER ==
[~2017-03-02] VITALS: Ht 177.8 cm; Wt 82.0 kg
[~2017-03-02 01:55] MED LIST changes: -CIPR-255 PO; +CPR500 PO; -FLM4 PO; +ULT50X PO
[2017-03-02] MEDS ORDERED: PHEN-876 PO (02:35)
[2017-03-02 02:43] LABS: BASO % 0.2 %; BASO ABS # 0.02 K/uL (0-0.2); COMPLETE YES; EOS % 2.2 %; IG% 0.1 %; LYMPH % 28.7 %; LYMPH ABS # 2.37 K/uL (1.2-3.4); MEAN CELL VOLUME 82.1 fL (80-100); MEAN CORPUSCULAR HEMOGLOBIN 28.4 pg (25-34); MEAN CORPUSCULAR HGB CONC 34.5 g/dl (32-36); MEAN PLATELET VOLUME 9.4 fL (7.4-10.4); MONO % 9.8 %; PLATELET COUNT 272 K/uL (130-400); RED BLOOD COUNT 4.02 M/uL (4.7-6.1); WHITE BLOOD COUNT 8.25 K/uL (4.8-10.8)
[2017-03-02 02:51] LABS: URINE APPEARANCE CLEAR (CLEAR); URINE BILIRUBIN NEG (NEG); URINE COLOR DK YELLOW; URINE EPITHELIAL CELL AUTO 0-5 /lpf (0-5); URINE NITRITE POS (NEG); URINE SPECIFIC GRAVITY 1.016 (1.000-1.030); UROBILINOGEN NEG (NEG); ZZURINE CULT IF INDIC CATH NO
[2017-03-02 02:59] LABS: MANUAL MICROSCOPIC REQUIRED? NO; REVIEW REQ? NO
[2017-03-02 03:09] LABS: ALKALINE PHOSPHATASE 67 U/L (45-117); ALT/SGPT 31 U/L (12-78); BLOOD UREA NITROGEN 41 mg/dl (7-18); BUN/CREATININE RATIO 10.6 (10-20); CALCIUM 9.2 mg/dl (8.5-10.1); CARBON DIOXIDE 21 mmol/L (21-32); CHLORIDE 113 mmol/L (98-107); GLUCOSE 90 mg/dl (70-99); SODIUM 144 mmol/L (136-145)
[2017-03-02] MEDS ORDERED: PHENAZOPYRIDINE HCL 200 MG TAB PO STA (03:27)
[2017-03-02] MEDS ORDERED: SODIUM CHLORIDE 0.9% 1000ML 1,000 ML IV STA ×2 (03:27)
[2017-03-02] MEDS ORDERED: CEFTRIAXONE SOD INJ 1 GM ADDVIAL IV STA (03:34)
[2017-03-02] MEDS ORDERED: LORAZEPAM 2 MG/ML 1 ML VIAL IV STA (03:35)
--- NOTE | 2017-03-02 03:38 | EMERGENCY ROOM VISIT NOTE ---
History First contact with patient: 02:04 Chief Complaint: UNABLE TO VOID Stated Complaint: UNABLE TO VOID Nursing Triage Summary: unable to sucessfuly straigh cath self. pt met resistance History of Present Illness The patient is a 22 year old male who presents to the Emergency Room with complaints of urinary retention for the past several days who complains of feeling fatigued and body aches with chills. Patient has had multiple bladder surgeries in the past and has a history of urinary retention with kidney stones and chronic hydronephrosis. He follows with Dr. Rendon. He has an appointment on the . He was recently admitted to this hospital for urinary retention. He has finished his antibiotics that he was discharge on which was Cipro. Patient denies chest pain, dyspnea, back pain, testicular pain, abdominal pain, vomiting, diarrhea. Review of Systems See HPI for pertinent positives & negatives. A total of 10 systems reviewed and were otherwise negative. Past Medical/Surgical History Medical Problems: (1) ARF (acute renal failure) (2) Bladder extrophy (3) UTI (urinary tract infection) Surgical Problems: (1) H/O nephrostomy (2) S/P appendectomy Family History Patient reports no known family medical history. Social History Smoking Status: Current Every Day Smoker Alcohol Use: occasionally Drug Use: marijuana Marital Status: single Housing Status: lives with roommate Occupation Status: employed Current/Historical Medications Scheduled Phenazopyridine HCl (Pyridium), 200 MG PO TID Physical Exam Vital Signs Date Time Temp Pulse Resp B/P (MAP) Pulse Ox O2 Delivery O2 Flow Rate FiO2 03/02/17 03:27 36.8 78 18 132/103 98 Room Air 03/02/17 02:00 37.1 89 16 154/95 97 Room Air Physical Exam VITALS: Vitals are noted on the nurse's note and reviewed by myself. Vital signs stable. GENERAL: Pleasant male who appears uncomfortable, in no acute distress, nondiaphoretic, well-developed well-nourished. SKIN: The skin was without rashes, erythema, edema, or bruising. There is no tenting of the skin. Capillary reflex less than 2 seconds. HEAD: Normocephalic atraumatic. EARS: External auditory canals clear, tympanic membranes pearly hoskins without erythema or effusion bilaterally. EYES: Pupils equal round and reactive to light and accommodation. Conjunctivae without injection, sclerae without icterus. Extraocular movements intact. NOSE: Patent, turbinates without inflammation or discharge. MOUTH: Mucous membranes moist. Pharynx without erythema or exudate. Uvula midline. Airway patent. Tongue does not deviate. NECK: Supple without nuchal rigidity. No lymphadenopathy. No thyromegaly. Cervical spine is nontender. No JVD. HEART: Regular rate and rhythm without murmurs gallops or rubs. LUNGS: Clear to auscultation bilaterally without wheezes, rales or rhonchi. No dullness to percussion. No retractions or accessory muscle use. ABDOMEN: Positive bowel sounds x 4. Normal tympanic percussion. Soft, bladder distended and tender to palpation, no CVA tenderness, without masses or organomegaly. Leger sign negative. No guarding or rebound tenderness. MUSCULOSKELETAL: No muscle atrophy, erythema, or edema noted. NEURO: Patient was alert and oriented to person place and time. Normal sensation to light and sharp touch. No focal neurological deficits. Medical Decision & Procedures Laboratory Results 03/02/17 02:27 Red Blood Count 4.02, Mean Corpuscular Volume 82.1, Mean Corpuscular Hemoglobin 28.4, Mean Corpuscular Hemoglobin Concent 34.5, Mean Platelet Volume 9.4, Neutrophils (%) (Auto) 59.0, Lymphocytes (%) (Auto) 28.7, Monocytes (%) (Auto) 9.8, Eosinophils (%) (Auto) 2.2, Basophils (%) (Auto) 0.2, Neutrophils # (Auto) 4.86, Lymphocytes # (Auto) 2.37, Monocytes # (Auto) 0.81, Eosinophils # (Auto) 0.18, Basophils # (Auto) 0.02 03/02/17 02:27 Test 03/02/17 02:27 03/02/17 02:35 White Blood Count 8.25 K/uL (4.8-10.8) Red Blood Count 4.02 M/uL (4.7-6.1) Hemoglobin 11.4 g/dL (14.0-18.0) Hematocrit 33.0 % (42-52) Mean Corpuscular Volume 82.1 fL (80-100) Mean Corpuscular Hemoglobin 28.4 pg (25-34) Mean Corpuscular Hemoglobin Concent 34.5 g/dl (32-36) Platelet Count 272 K/uL (130-400) Mean Platelet Volume 9.4 fL (7.4-10.4) Neutrophils (%) (Auto) 59.0 % Lymphocytes (%) (Auto) 28.7 % Monocytes (%) (Auto) 9.8 % Eosinophils (%) (Auto) 2.2 % Basophils (%) (Auto) 0.2 % Neutrophils # (Auto) 4.86 K/uL (1.4-6.5) Lymphocytes # (Auto) 2.37 K/uL (1.2-3.4) Monocytes # (Auto) 0.81 K/uL (0.11-0.59) Eosinophils # (Auto) 0.18 K/uL (0-0.5) Basophils # (Auto) 0.02 K/uL (0-0.2) RDW Standard Deviation 38.6 fL (36.4-46.3) RDW Coefficient of Variation 12.8 % (11.5-14.5) Immature Granulocyte % (Auto) 0.1 % Immature Granulocyte # (Auto) 0.01 K/uL (0.00-0.02) Anion Gap 10.0 mmol/L (3-11) Est Creatinine Clear Calc Drug Dose 32.1 ml/min Estimated GFR () 23.8 Estimated GFR (Non- 20.5 BUN/Creatinine Ratio 10.6 (10-20) Calcium Level 9.2 mg/dl (8.5-10.1) Total Bilirubin 0.7 mg/dl (0.2-1) Direct Bilirubin mg/dl (0-0.2) Aspartate Amino Transf (AST/SGOT) U/L (15-37) Alanine Aminotransferase (ALT/SGPT) 31 U/L (12-78) Alkaline Phosphatase 67 U/L (45-117) Total Protein 7.4 gm/dl (6.4-8.2) Albumin 3.8 gm/dl (3.4-5.0) Urine Color DK YELLOW Urine Appearance CLEAR (CLEAR) Urine pH 5.0 (4.5-7.5) Urine Specific [place] 1.016 (1.000-1.030) Urine Protein NEG (NEG) Urine Glucose (UA) NEG (NEG) Urine Ketones NEG (NEG) Urine Occult Blood 2+ (NEG) Urine Nitrite POS (NEG) Urine Bilirubin NEG (NEG) Urine Urobilinogen NEG (NEG) Urine Leukocyte Esterase SMALL (NEG) Urine WBC (Auto) 5-10 /hpf (0-5) Urine RBC (Auto) 0-4 /hpf (0-4) Urine Hyaline Casts (Auto) 0 /lpf (0-5) Urine Epithelial Cells (Auto) 0-5 /lpf (0-5) Urine Bacteria (Auto) NEG (NEG) Medications Administered Medications (Trade) Dose Ordered Sig/Tiffany Route Start Time Stop Time Status Last Admin Dose Admin Sodium Chloride 1,000 ml @ 999 mls/hr Q1H1M STAT IV 03/02/17 03:27 03/02/17 04:27 03/02/17 03:35 999 MLS/HR Sodium Chloride 1,000 ml @ 200 mls/hr Q5H STAT IV 03/02/17 03:27 03/02/17 08:26 03/02/17 03:35 200 MLS/HR Phenazopyridine HCl (Pyridium Tab) 200 mg NOW STAT PO 03/02/17 03:27 03/02/17 03:28 DC 03/02/17 03:32 200 MG ED Course Prior records/ancillary studies reviewed. Triage Nursing notes reviewed. Additional history obtained from family The patient's history was concerning for retention with feeling fatigued and chilled. Differential diagnosis: Etiologies such as urosepsis, urinary retention, urinary obstruction, appendicitis, diverticulitis, UTI, obstruction, infections, renal colic, as well as others were entertained. Physical examination findings: As above. ER treatment provided: Bladder scan shows greater than a liter of urine and full catheter was placed. On reassessment the patient felt better. Diagnostics interpreted by me: The labs revealed creatinine 3.9. Urine concerning for infection and sent for culture No leukocytosis, negative lactic acid Consultation: A consultation was placed with the hospitalist, Dr Pinto. The case was discussed and diagnostics were reviewed. The patient was evaluated in the ER for further treatment. Exam and history seem consistent with urinary retention with UTI and acute renal failure. Patient had occurred at 3.9. His baseline is 1.4. He was hydrated as above. He was started on antibiotics. Urine culture was sent. He will be evaluated by medicine for admission. Patient is agreeable to treatment plan. By the evaluation outlined above emergent etiologies such as appendicitis, renal colic, as well as others were deemed relatively unlikely. The pt informed about the findings as listed above. All questions were answered and pleased with the treatment. case reviewed with my Attending. Medical Decision As above Medication Reconcilliation Current Medication List: was personally reviewed by me Blood Pressure Screening Patient's blood pressure: Normal blood pressure Impression Primary Impression: ARF (acute renal failure) Additional Impressions: UTI (urinary tract infection) Anemia Departure Information Dispostion Being Evaluated By Hospitalist Condition FAIR Referrals Gallito Alston M.D. (MEDICAL) (PCP) Patient Instructions My [facility] Problem Qualifiers Primary Impression: ARF (acute renal failure) Acute renal failure type: unspecified Qualified Codes: N17.9 - Acute kidney failure, unspecified
[2017-03-02] MEDS ORDERED: MoRPHine SULFATE 2 MG/ML CARP IV PRN (04:15)
--- NOTE | 2017-03-02 04:18 | History and Physical ---
History & Physical Date & Time of Service: Mar 02, 2017 at 04:15 Chief Complaint: Unable To Void Primary Care Physician: Gallito Alston M.D. (MEDICAL) History of Present Illness Source: patient Patient is a 22 yr male with PMH of Exstrophy of bladder S/P surgery, last surgery was in 2013 at [place], b/l hydronephrosis, recurrent UTIs, Neurogenic bladder, Nephrolithiasis and Tobacco use who was recently discharged from [facility] after being treated for obstructive Uropathy and PATRICK presents with history of lower abdominal pain, dysuria, bladder spasms and urinary retention. Patient usually straight caths 2-3 times a day but since about a week he states having difficulty to do the same. He is able to void some urine but states was not able to completely empty the bladder. He follows with and has an appointment on . Patient reports having dysuria, chills and bladder spasms associated with lower abdominal pain which is intermittent and pressure like sensation, non radiating. Patient visited his PCP and was started on Pyridium for bladder spasms. Patient completed antibiotic course after recent hospitalization and reports diarrhea since about a week. Denies any history of fever, hematuria, chest pain, SOB, nausea, vomiting, blood in stools, dizziness , headache, cough, wheezing or any other relevant history. Patient states abdominal pain is much improved after catheterization in ED. Past Medical/Surgical History Medical Problems: (1) Bladder extrophy Status: Chronic Surgical Problems: (1) H/O nephrostomy Status: Resolved (2) S/P appendectomy Status: Resolved Family History Patient reports no known family medical history. Reviewed. Non contributory Social History Smoking Status: Current Every Day Smoker Alcohol Use: socially Drug Use: marijuana Marital Status: single Occupational Status: employed Immunizations History of Tetanus Vaccine?: Yes Tetanus Immunization Date: Nov 27, 2000 History of Hepatitis B Vaccine: Yes Hepatitis Immunization Date: 1995 Allergies Coded Allergies: No Known Allergies (Verified , 03/02/17) Home Medications Scheduled Phenazopyridine HCl (Pyridium), 200 MG PO TID Review of Systems See HPI for pertinent positives & negatives. A total of 10 systems reviewed and were otherwise negative. Physical Exam Vital Signs Date Time Temp Pulse Resp B/P (MAP) Pulse Ox O2 Delivery O2 Flow Rate FiO2 03/02/17 03:27 36.8 78 18 132/103 98 Room Air 03/02/17 02:00 37.1 89 16 154/95 97 Room Air General Appearance: WD/WN, no apparent distress Head: normocephalic, atraumatic Eyes: normal inspection, PERRL, EOMI, sclerae normal ENT: normal ENT inspection, hearing grossly normal Neck: supple, no JVD, trachea midline Respiratory/Chest: chest non-tender, lungs clear, normal breath sounds, no respiratory distress, no accessory muscle use Cardiovascular: regular rate, rhythm, no edema, no murmur Abdomen/GI: normal bowel sounds, soft, + tenderness (Suprapubic region ) Back: normal inspection Extremities/Musculoskelatal: normal inspection, no pedal edema 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, no motor/sensory deficits, alert, normal mood/affect, oriented x 3 Skin: normal color, warm/dry, no rash Diagnostics Laboratory Results Results Past 24 Hours Test 03/02/17 02:27 03/02/17 02:35 Range/Units White Blood Count 8.25 4.8-10.8 K/uL Red Blood Count 4.02 4.7-6.1 M/uL Hemoglobin 11.4 14.0-18.0 g/dL Hematocrit 33.0 42-52 % Mean Corpuscular Volume 82.1 80-100 fL Mean Corpuscular Hemoglobin 28.4 25-34 pg Mean Corpuscular Hemoglobin Concent 34.5 32-36 g/dl Platelet Count 272 130-400 K/uL Mean Platelet Volume 9.4 7.4-10.4 fL Neutrophils (%) (Auto) 59.0 % Lymphocytes (%) (Auto) 28.7 % Monocytes (%) (Auto) 9.8 % Eosinophils (%) (Auto) 2.2 % Basophils (%) (Auto) 0.2 % Neutrophils # (Auto) 4.86 1.4-6.5 K/uL Lymphocytes # (Auto) 2.37 1.2-3.4 K/uL Monocytes # (Auto) 0.81 0.11-0.59 K/uL Eosinophils # (Auto) 0.18 0-0.5 K/uL Basophils # (Auto) 0.02 0-0.2 K/uL RDW Standard Deviation 38.6 36.4-46.3 fL RDW Coefficient of Variation 12.8 11.5-14.5 % Immature Granulocyte % (Auto) 0.1 % Immature Granulocyte # (Auto) 0.01 0.00-0.02 K/uL Sodium Level 144 136-145 mmol/L Potassium Level 3.5-5.1 mmol/L Chloride Level 113 98-107 mmol/L Carbon Dioxide Level 21 21-32 mmol/L Anion Gap 10.0 3-11 mmol/L Blood Urea Nitrogen 41 7-18 mg/dl Creatinine 3.90 0.60-1.40 mg/dl Est Creatinine Clear Calc Drug Dose 32.1 ml/min Estimated GFR () 23.8 Estimated GFR (Non- 20.5 BUN/Creatinine Ratio 10.6 10-20 Random Glucose 90 70-99 mg/dl Calcium Level 9.2 8.5-10.1 mg/dl Total Bilirubin 0.7 0.2-1 mg/dl Direct Bilirubin 0-0.2 mg/dl Aspartate Amino Transf (AST/SGOT) 15-37 U/L Alanine Aminotransferase (ALT/SGPT) 31 12-78 U/L Alkaline Phosphatase 67 45-117 U/L Total Protein 7.4 6.4-8.2 gm/dl Albumin 3.8 3.4-5.0 gm/dl Urine Color DK YELLOW Urine Appearance CLEAR CLEAR Urine pH 5.0 4.5-7.5 Urine Specific [place] 1.016 1.000-1.030 Urine Protein NEG NEG Urine Glucose (UA) NEG NEG Urine Ketones NEG NEG Urine Occult Blood 2+ NEG Urine Nitrite POS NEG Urine Bilirubin NEG NEG Urine Urobilinogen NEG NEG Urine Leukocyte Esterase SMALL NEG Urine WBC (Auto) 5-10 0-5 /hpf Urine RBC (Auto) 0-4 0-4 /hpf Urine Hyaline Casts (Auto) 0 0-5 /lpf Urine Epithelial Cells (Auto) 0-5 0-5 /lpf Urine Bacteria (Auto) NEG NEG Microbiology Results 03/02/17 Blood Culture, Ordered Pending 03/02/17 Blood Culture, Ordered Pending Impression Assessment and Plan Abdominal pain: Likely secondary to Bladder Extrophy/Neurogenic bladder/ Obstructive Uropathy DD: could have urethral stricture H/O multiple bladder surgeries for bladder exstrophy. Patient straight caths at baseline Check Renal USD Pain control Urology consulted Continue Horowitz IV ceftriaxone started NPO for now for possible procedure PATRICK: likely secondary to obstruction Cr:1.4 at baseline Cr on admission:3.9 Check renal USD continue horowitz IV fluids monitor renal function Nephrology consulted Abnormal UA check Urine culture IV Rocephin started Elevated Blood pressure: likely situational Monitor Diarrhea: Recent antibiotic use check stool for C.diff DVT px: SCDs Encourage to ambulate Code Status: Full Code Disposition: Plan to discharge home when stable VTE Prophylaxis VTE Risk Assessment Done? Y/N: Yes Risk Level: Low
[2017-03-02 04:53] VITALS: BP 153/80; PULSE 95; TEMP 36.8; Ht 177.8 cm; Wt 82.0 kg
[2017-03-02] MEDS: SODIUM CHLORIDE 0.9% 1000ML 1,000 ML IV SCH ×3 (05:36→16:40)
--- NOTE | 2017-03-02 06:50 | DIAGNOSTIC IMAGING REPORT ---
RENAL ULTRASOUND CLINICAL HISTORY: Acute kidney injury. COMPARISON STUDY: CT of the abdomen and pelvis February 14, 2017. TECHNIQUE: Sonography of the kidneys and the urinary bladder was performed. FINDINGS: The right kidney measures 14.5 x 5.6 x 5.8 cm and the left measures 11.9 x 7.3 x 6.9 cm. Severe bilateral hydroureteronephrosis, right greater than left, is again noted. Marked right renal cortical thinning is noted. Findings are similar to exam of February 14, 2017 when allowing for differences in technique. Neither ureteral jet was identified. The bladder was decompressed. Moderate to marked bladder wall thickening was noted. A Gomez catheter was noted. IMPRESSION: 1. Severe bilateral hydroureteronephrosis, right more severe than left. No significant change since CT of February 14, 2017 when allowing for differences in technique. 2. Marked right renal cortical thinning. 3. Moderate to marked bladder wall thickening accentuated by underdistention. Electronically signed by: Otis Yip M.D. 03/02/2017 6:49 AM Dictated Date/Time: 03/02/2017 6:43 AM
[2017-03-02 07:35] VITALS: BP 144/86; PULSE 66; TEMP 36.5; O2SAT 98
[2017-03-02] MEDS: HYDROmorphone INJ 0.5 MG/0.5 ML SYR IV PRN ×5 (09:13→23:32)
--- NOTE | 2017-03-02 09:16 | Urology Consultation ---
History General Date of Service: Mar 02, 2017. Primary Care Physician: Gallito Alston M.D. (MEDICAL) Pt seen a urologist before?: Yes If yes, why?: Bladder extrophy History of Present Illness 22 year old male with hx of bladder extrophy. Urology consulted for this and ARF. He was admitted a few weeks ago w/ ARF- this resolved with use of catheter. He was sent home with antibiotics and instructed to CIC 3-4 times. He reports he was able to self cath 1-2 times but then stopped CIC due to difficulty inserting catheter. "[place] like I was hitting a wall" Horowitz (coude) was placed without documentation of difficulty. Draining good amounts of clear yellow urine. His creatinine improved at last hospital stay and was between 1.4- 1.9 Currently creatinine is 3.9. Urine culture and Blood cultures pending. UA was nitrite positive- on IV ceftriaxone. CT does show bilateral nephrosis- this is chronic for pt. IVF infusing. Imaging Imaging: CT, Ultrasound Laboratory Current Inpatient Medications Medications (Trade) Dose Ordered Sig/Tiffany Route Start Time Stop Time Status Last Admin Dose Admin Acetaminophen (Tylenol Tab) 650 mg Q4H PRN PO 03/02/17 04:00 04/01/17 03:59 Ondansetron HCl (Zofran Inj) 4 mg Q6H PRN IV 03/02/17 04:00 04/01/17 03:59 Ceftriaxone Sodium 1 gm/ Dextrose 50 ml @ 100 mls/hr Q24H IV 03/03/17 04:00 03/12/17 03:59 Sodium Chloride 1,000 ml @ 125 mls/hr Q8H IV 03/02/17 04:15 04/01/17 04:14 03/02/17 08:50 125 MLS/HR Phenazopyridine HCl (Pyridium Tab) 200 mg TID PRN PO 03/02/17 04:15 04/01/17 04:14 Hydromorphone HCl (Dilaudid Inj) 0.5 mg Q4HWA PRN IV 03/02/17 08:45 03/16/17 08:44 UNV Last 24 Hours Test 03/02/17 02:27 03/02/17 02:35 White Blood Count 8.25 K/uL Red Blood Count 4.02 M/uL Hemoglobin 11.4 g/dL Hematocrit 33.0 % Mean Corpuscular Volume 82.1 fL Mean Corpuscular Hemoglobin 28.4 pg Mean Corpuscular Hemoglobin Concent 34.5 g/dl Platelet Count 272 K/uL Mean Platelet Volume 9.4 fL Neutrophils (%) (Auto) 59.0 % Lymphocytes (%) (Auto) 28.7 % Monocytes (%) (Auto) 9.8 % Eosinophils (%) (Auto) 2.2 % Basophils (%) (Auto) 0.2 % Neutrophils # (Auto) 4.86 K/uL Lymphocytes # (Auto) 2.37 K/uL Monocytes # (Auto) 0.81 K/uL Eosinophils # (Auto) 0.18 K/uL Basophils # (Auto) 0.02 K/uL RDW Standard Deviation 38.6 fL RDW Coefficient of Variation 12.8 % Immature Granulocyte % (Auto) 0.1 % Immature Granulocyte # (Auto) 0.01 K/uL Sodium Level 144 mmol/L Potassium Level mmol/L Chloride Level 113 mmol/L Carbon Dioxide Level 21 mmol/L Anion Gap 10.0 mmol/L Blood Urea Nitrogen 41 mg/dl Creatinine 3.90 mg/dl Est Creatinine Clear Calc Drug Dose 32.1 ml/min Estimated GFR () 23.8 Estimated GFR (Non- 20.5 BUN/Creatinine Ratio 10.6 Random Glucose 90 mg/dl Calcium Level 9.2 mg/dl Total Bilirubin 0.7 mg/dl Direct Bilirubin mg/dl Aspartate Amino Transf (AST/SGOT) U/L Alanine Aminotransferase (ALT/SGPT) 31 U/L Alkaline Phosphatase 67 U/L Total Protein 7.4 gm/dl Albumin 3.8 gm/dl Urine Color DK YELLOW Urine Appearance CLEAR Urine pH 5.0 Urine Specific [place] 1.016 Urine Protein NEG Urine Glucose (UA) NEG Urine Ketones NEG Urine Occult Blood 2+ Urine Nitrite POS Urine Bilirubin NEG Urine Urobilinogen NEG Urine Leukocyte Esterase SMALL Urine WBC (Auto) 5-10 /hpf Urine RBC (Auto) 0-4 /hpf Urine Hyaline Casts (Auto) 0 /lpf Urine Epithelial Cells (Auto) 0-5 /lpf Urine Bacteria (Auto) NEG Labs were reviewed and are within normal limits unless listed below. Labs are available in the chart and at [facility] Problem List Medical Problems: (1) Anemia Status: Acute (2) Renal failure Status: Acute (3) Suprapubic abdominal pain Status: Acute (4) Urinary tract infection Status: Acute Past History asthma, kidney stones, urinary tract infection, other Past Surgical History: appendectomy, other Family History Patient reports no known family medical history. Social History Hx Tobacco Use In Past Year?: Yes Smoking: less than 1 pack/day, other Alcohol: socially Drug use: marijuana Marital status: single Occupation status: employed Immunizations History of Tetanus Vaccine?: Yes Tetanus Immunization Date: Nov 27, 2000 History of Hepatitis B Vaccine: Yes Hepatitis Immunization Date: 1995 Allergies Coded Allergies: No Known Allergies (Verified , 03/02/17) Medications Home Medications: Home Meds and Scripts Medications Dose Route/Sig Max Daily Dose Days Date Category Pyridium (Phenazopyridine HCl) 200 Mg Tab 200 Mg PO TID 03/02/17 Reported Inpatient Medications: Current Inpatient Medications Medications (Trade) Dose Ordered Sig/Tiffany Route Start Time Stop Time Status Last Admin Dose Admin Acetaminophen (Tylenol Tab) 650 mg Q4H PRN PO 03/02/17 04:00 04/01/17 03:59 Ondansetron HCl (Zofran Inj) 4 mg Q6H PRN IV 03/02/17 04:00 04/01/17 03:59 Ceftriaxone Sodium 1 gm/ Dextrose 50 ml @ 100 mls/hr Q24H IV 03/03/17 04:00 03/12/17 03:59 Sodium Chloride 1,000 ml @ 125 mls/hr Q8H IV 03/02/17 04:15 04/01/17 04:14 03/02/17 08:50 125 MLS/HR Phenazopyridine HCl (Pyridium Tab) 200 mg TID PRN PO 03/02/17 04:15 04/01/17 04:14 Hydromorphone HCl (Dilaudid Inj) 0.5 mg Q4HWA PRN IV 03/02/17 08:45 03/16/17 08:44 UNV Review of Systems Review of Systems Constitutional: + frequent headaches, No fever, No chills Eyes: No blurred vision Neurological: No dizzy Endocrine: No excessive thirst Gastrointestinal: + see HPI, + abdominal pain Cardiovascular: No chest pain Respiratory: No shortness of breath Skin: No rash Musculoskeletal: No joint pain Blood / Lymphatic: No bleed easily Ears / Nose / Throat: No hearing loss Psychologic / Mental: No nervous, No trouble remembering Male : + see HPI, + urinary retention Physical Exam Vital Signs: Vital Signs Past 12 Hours Date Time Temp Pulse Resp B/P (MAP) Pulse Ox O2 Delivery O2 Flow Rate FiO2 03/02/17 07:35 36.5 66 17 144/86 (105) 98 Room Air 03/02/17 07:35 Room Air 03/02/17 05:12 Room Air 03/02/17 04:53 36.8 95 20 153/80 Room Air 03/02/17 04:27 80 18 147/93 98 03/02/17 03:27 36.8 78 18 132/103 98 Room Air 03/02/17 02:00 37.1 89 16 154/95 97 Room Air Physical Exam: General Appearance: WD/WN, no apparent distress Eyes: bilateral eyes normal inspection ENT: hearing grossly normal Neck: no JVD Respiratory/Chest: lungs clear, normal breath sounds, no respiratory distress, no accessory muscle use Cardiovascular: regular rate, rhythm Extremities: normal range of motion, non-tender, normal inspection, no pedal edema, no calf tenderness Neurologic/Psychiatric: alert, normal mood/affect, oriented x 3 Skin: normal color, warm/dry, no rash Assessment & Plan Assessment & Plan Acute renal failure Suspect this is secondary to urinary retention/neurogenic bladder. Pt has not utilized CIC over the past few weeks. Will recheck PRP to determine if renal function improves with horowitz catheter. Recommend leaving horowitz catheter upon discharge. May need cysto in future to rule out stricture given his reports of difficulty w/ CIC. Recommend continue IVF. Continue IV antibiotics- UA nitrite positive. Await urine culture results. Recommend treatment with 2 weeks of oral antibiotics. He has appt in our office on 03/07. Will extend antibiotics if needed at this time. Discussed issues with neurogenic bladder, renal failure and need to empty bladder by catheterization. Discussed the possibility of bladder rupture, renal failure/ESRD (potentially permanent) and possible need for permanent dialysis. Discussed case with nephrology- appreciate their input as well as Dr. Rendon ( primary urologist). Thanks for the consult. Will continue to follow along with primary service.
--- NOTE | 2017-03-02 09:24 | NEPHROLOGY CONSULTATION ---
DATE OF CONSULTATION: 03/02/2017 ATTENDING OF RECORD: Dr. Potts. REASON FOR CONSULTATION: PATRICK. HISTORY OF PRESENT ILLNESS: This is a 22-year-old male with significant past medical history of exstrophy of the bladder at , requiring multiple surgeries, who has a neurogenic bladder, history of nephrolithiasis, and recurrent urinary tract infections. The patient was told to do intermittent straight catheterizations; however, it was causing pain and difficulties, so the patient stopped doing it. He was urinating intermittently, but was having abdominal pain and comes in with a creatinine of 3.9. Gomez catheter was placed and is making good urine of 4300 mL so far. Abdominal pain is improving. The patient is currently resting comfortably. Describing some pain with the Gomez catheter in place, but otherwise eating and drinking well and is alert. He does state that he did take Aleve, 3 or 4 of them over the past week secondary to headaches and pains. PAST MEDICAL HISTORY: 1. 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 2. Tobacco abuse. PAST SURGICAL HISTORY: Appendectomy and multiple bladder surgeries. FAMILY HISTORY: Denies any renal failure in the family. SOCIAL HISTORY: Active smoker. Positive marijuana. Social alcohol. 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 CURRENT MEDICATIONS: Ceftriaxone 1 gram IV daily, normal saline at 125 mL an hour, and Pyridium as needed. REVIEW OF SYSTEMS: No fevers or chills. No headaches. Positive abdominal pain, which has improved. Positive urinary discomfort with Gomez catheter in place. No diarrhea or constipation. No rash or itching. No blurry vision. No difficulty hearing. No chest pain. No rash. All other review of systems otherwise negative. PHYSICAL EXAMINATION: VITAL SIGNS: Temperature 36.5, pulse 66, respiratory rate 17, blood pressure 144/86, and satting 98% on room air. GENERAL: Awake, alert, and oriented x3. EYES: No scleral icterus. ENT: Moist mucous membranes. NECK: Supple. PULMONARY: Clear to auscultation. CARDIAC: Regular rate and rhythm. ABDOMEN: Bowel sounds positive. Soft, nontender, and nondistended. EXTREMITIES: No clubbing, cyanosis or edema. NEUROLOGIC: Nonfocal. GENITOURINARY: Gomez catheter in place with clear urine. LABORATORIES: Sodium level is 144, potassium was hemolyzed, chloride is 113, bicarbonate is 21, BUN is 41, creatinine is 3.9, glucose 90, and calcium is 9.2. T-bili is 0.7. Albumin is 3.8. White count is 8, H&H 11 and 33, and platelet count is 272. UA shows 2+ blood, positive nitrite, small leukocyte esterase, and 5-10 WBCs. Urine cultures and blood cultures are pending. Renal ultrasound shows right kidney of 14.5 cm and the left kidney of 11.9 cm. Severe bilateral hydroureteronephrosis, right greater than left, marked right renal cortical thinning. ASSESSMENT AND PLAN: Acute kidney injury with creatinine of 3.9 in the setting of bilateral hydronephrosis. The patient with neurogenic bladder, who was not intermittent straight cathing. Gomez catheter in place now, making good urine. Currently, on IV fluids. Repeat labs tomorrow and following potassium, magnesium and phosphorus levels. We will monitor for an osmotic diuresis. BUN though was only at 41. So, that should not necessarily be the case. As the patient does not intermittent straight catheterization at home and continues to have significant hydronephrosis with recurrent urinary tract infections, patient has a high likelihood of eventually ending up on dialysis. He will need followup with me as an outpatient. For now, case discussed with urology. She agrees with the plan of continue IV fluids and recheck labs in the morning. I appreciate the consultation. ANDRES
[2017-03-02] MEDS: PHENAZOPYRIDINE HCL 200 MG TAB PO PRN (11:17)
[2017-03-02 15:31] VITALS: BP 147/87; PULSE 54; TEMP 36.4; O2SAT 98
[2017-03-02] MEDS: ONDANSETRON INJ 2 MG/ML 2 ML VIAL IV PRN (17:01)
[2017-03-02] MEDS ORDERED: NURSING VERBAL MED ORDER ONE (18:45)
--- NOTE | 2017-03-02 19:28 | Progress Note ---
Medicine Progress Note Date & Time of Visit: Mar 02, 2017 at 11:09. Subjective Pt was seen and examined Lying in bed complaint of moderate abdominal pain Pt said that pain med helps but it doesn't last longer he said that he continue feels a pressure in his blader also the follow cath causes a little tenderness he denies any chest pain, palpitation, dizziness and sob Objective Last 8 Hrs Date Time Temp Pulse Resp B/P (MAP) Pulse Ox O2 Delivery O2 Flow Rate FiO2 03/02/17 16:00 Room Air 03/02/17 15:31 36.4 54 18 147/87 (107) 98 Room Air Physical Exam: General- No acute distress Head- atraumatic Eyes- PERRL, EOMI ENT- oropharynx clear Neck- supple, no JVD Lungs- clear to auscultation Heart- regular rhythm; no murmur Abdomen- normal bowel sounds, +tender Extremities- no pretibial edema, no calf tenderness Neuro- alert, oriented x 3; PERRL, EOMI; no facial palsy Skin- warm & dry Laboratory Results: Last 24 Hours Test 03/02/17 02:27 03/02/17 02:34 03/02/17 02:35 White Blood Count 8.25 K/uL Red Blood Count 4.02 M/uL Hemoglobin 11.4 g/dL Hematocrit 33.0 % Mean Corpuscular Volume 82.1 fL Mean Corpuscular Hemoglobin 28.4 pg Mean Corpuscular Hemoglobin Concent 34.5 g/dl Platelet Count 272 K/uL Mean Platelet Volume 9.4 fL Neutrophils (%) (Auto) 59.0 % Lymphocytes (%) (Auto) 28.7 % Monocytes (%) (Auto) 9.8 % Eosinophils (%) (Auto) 2.2 % Basophils (%) (Auto) 0.2 % Neutrophils # (Auto) 4.86 K/uL Lymphocytes # (Auto) 2.37 K/uL Monocytes # (Auto) 0.81 K/uL Eosinophils # (Auto) 0.18 K/uL Basophils # (Auto) 0.02 K/uL RDW Standard Deviation 38.6 fL RDW Coefficient of Variation 12.8 % Immature Granulocyte % (Auto) 0.1 % Immature Granulocyte # (Auto) 0.01 K/uL Sodium Level 144 mmol/L Potassium Level mmol/L Chloride Level 113 mmol/L Carbon Dioxide Level 21 mmol/L Anion Gap 10.0 mmol/L Blood Urea Nitrogen 41 mg/dl Creatinine 3.90 mg/dl Est Creatinine Clear Calc Drug Dose 32.1 ml/min Estimated GFR () 23.8 Estimated GFR (Non- 20.5 BUN/Creatinine Ratio 10.6 Random Glucose 90 mg/dl Calcium Level 9.2 mg/dl Total Bilirubin 0.7 mg/dl Direct Bilirubin mg/dl Aspartate Amino Transf (AST/SGOT) U/L Alanine Aminotransferase (ALT/SGPT) 31 U/L Alkaline Phosphatase 67 U/L Total Protein 7.4 gm/dl Albumin 3.8 gm/dl Bedside Lactic Acid Venous 0.62 mmol/L Urine Color DK YELLOW Urine Appearance CLEAR Urine pH 5.0 Urine Specific [place] 1.016 Urine Protein NEG Urine Glucose (UA) NEG Urine Ketones NEG Urine Occult Blood 2+ Urine Nitrite POS Urine Bilirubin NEG Urine Urobilinogen NEG Urine Leukocyte Esterase SMALL Urine WBC (Auto) 5-10 /hpf Urine RBC (Auto) 0-4 /hpf Urine Hyaline Casts (Auto) 0 /lpf Urine Epithelial Cells (Auto) 0-5 /lpf Urine Bacteria (Auto) NEG Date/Time Source Procedure Growth Status 03/02/17 04:25 Blood Blood Culture Pending Received 03/02/17 04:20 Blood Blood Culture Pending Received 03/02/17 02:35 Urine,Catheterized Urine Culture Pending Received Assessment & Plan Abdominal pain Due to urinary retention Likely secondary to Bladder Extrophy/Neurogenic bladder/Obstructive Uropathy H/O multiple bladder surgeries for bladder exstrophy. Has been unable to self straight cath Renal u/s showed Severe bilateral hydroureteronephrosis, right more severe than left. Continue pain management with Dilaudid q3h Will start on clear liquid diet pain improved B/L Hydroureteronephrosis Renal u/s showed severe bilateral hydroureteronephrosis Continue IV ceftriaxone Urology on board recommended to keep Horowitz and continue IVF Continue abx for 2 weeks Urine cx pending has a follow up appt with urology on 03/07 Acute kidney injury Due to severe bilateral hydroureteronephrosis Cr:1.4 at baseline Cr on admission:3.9 continue horowitz IV fluids Nephrology on board Avoid nephrotoxic agents Monitor BMP, Mg and phos Abnormal UA UA positive for nitrite and leukocytes Urine cx and blood cx pending Continue IV Rocephin Tobacco abuse Counseling on smoking cessation Elevated Blood pressure likely situational and pain Monitor Diarrhea Recent antibiotic use stool for C.diff was not collected improved DVT px: SCDs Encourage to ambulate Code Status: Full Code Disposition Continue IVF and abx Will discharge once medically stable Consultants: Urology Nephrology Current Inpatient Medications: Current Inpatient Medications Medications (Trade) Dose Ordered Sig/Tiffany Route Start Time Stop Time Status Last Admin Dose Admin Acetaminophen (Tylenol Tab) 650 mg Q4H PRN PO 03/02/17 04:00 04/01/17 03:59 Ondansetron HCl (Zofran Inj) 4 mg Q6H PRN IV 03/02/17 04:00 04/01/17 03:59 03/02/17 17:01 4 MG Ceftriaxone Sodium 1 gm/ Dextrose 50 ml @ 100 mls/hr Q24H IV 03/03/17 04:00 03/12/17 03:59 Sodium Chloride 1,000 ml @ 125 mls/hr Q8H IV 03/02/17 04:15 04/01/17 04:14 03/02/17 16:40 125 MLS/HR Phenazopyridine HCl (Pyridium Tab) 200 mg TID PRN PO 03/02/17 04:15 04/01/17 04:14 03/02/17 11:17 200 MG Hydromorphone HCl (Dilaudid Inj) 0.5 mg Q3H PRN IV 03/02/17 19:00 03/16/17 18:59
[2017-03-02 23:20] VITALS: BP 164/98; PULSE 55; TEMP 36.7; O2SAT 98
[2017-03-03] MEDS: HYDROmorphone INJ 0.5 MG/0.5 ML SYR IV PRN ×7 (02:39→22:48)
[2017-03-03] MEDS: PHENAZOPYRIDINE HCL 200 MG TAB PO PRN ×2 (02:39→15:33)
[2017-03-03] MEDS: CEFTRIAXONE SOD INJ 1 GM in DEXTROSE 5% ADD-VANTAGE 50ML 50 ML IV SCH (04:09)
[2017-03-03] MEDS: SODIUM CHLORIDE 0.9% 1000ML 1,000 ML IV SCH ×3 (04:09→19:43)
[2017-03-03 07:17] LABS: HEMATOCRIT 33.8 % (42-52); MEAN CELL VOLUME 82.8 fL (80-100); MEAN CORPUSCULAR HEMOGLOBIN 27.7 pg (25-34); MEAN CORPUSCULAR HGB CONC 33.4 g/dl (32-36); PLATELET COUNT 229 K/uL (130-400); RED BLOOD COUNT 4.08 M/uL (4.7-6.1); WHITE BLOOD COUNT 5.93 K/uL (4.8-10.8)
[2017-03-03 07:56] LABS: BUN/CREATININE RATIO 10.5 (10-20); CALCIUM 8.6 mg/dl (8.5-10.1); CREATININE 2.5 mg/dl (0.60-1.40); MAGNESIUM 1.7 mg/dl (1.8-2.4); PHOSPHORUS 3.5 mg/dl (2.5-4.9); POTASSIUM 3.3 mmol/L (3.5-5.1)
[2017-03-03 08:01] VITALS: BP 147/79; PULSE 49; TEMP 36.5; O2SAT 98
[2017-03-03] MEDS ORDERED: MAGNESIUM SULFATE 1GM / D5W 1 GM in PREMIXED IN D5W 100 ML IV ONE (08:15)
[2017-03-03] MEDS ORDERED: POTASSIUM CHLORIDE 20 MEQ TABCR PO ONE (08:15)
--- NOTE | 2017-03-03 09:22 | Nephrology Progress Note ---
Nephrology Progress Note Date of Service: Mar 03, 2017. Subjective 22 yo male with patrick from hydro which has improved with horowitz catheter and iv fluids. tolerating clear liquid diet and would like diet advanced. no sob. continues to have pain with the catheter. Objective Date Time Temp Pulse Resp B/P (MAP) Pulse Ox O2 Delivery O2 Flow Rate FiO2 03/03/17 08:01 36.5 49 16 147/79 (101) 98 Room Air 03/03/17 07:35 Room Air 03/02/17 23:36 Room Air 03/02/17 23:20 36.7 55 16 164/98 (120) 98 Room Air 03/02/17 16:00 Room Air 03/02/17 15:31 36.4 54 18 147/87 (107) 98 Room Air Physical Exam: General-aaox3 Eyes-no scleral icterus ENT-mmm Neck-supple Lungs-cta Heart-tran Abdomen-bs+ s/nt/nd Extremities-no c/c/e Neuro-nonfocal Current Inpatient Medications Medications (Trade) Dose Ordered Sig/Tiffany Route Start Time Stop Time Status Last Admin Dose Admin Acetaminophen (Tylenol Tab) 650 mg Q4H PRN PO 03/02/17 04:00 04/01/17 03:59 Ondansetron HCl (Zofran Inj) 4 mg Q6H PRN IV 03/02/17 04:00 04/01/17 03:59 03/02/17 17:01 4 MG Ceftriaxone Sodium 1 gm/ Dextrose 50 ml @ 100 mls/hr Q24H IV 03/03/17 04:00 03/12/17 03:59 03/03/17 04:09 100 MLS/HR Sodium Chloride 1,000 ml @ 125 mls/hr Q8H IV 03/02/17 04:15 04/01/17 04:14 03/03/17 04:09 125 MLS/HR Phenazopyridine HCl (Pyridium Tab) 200 mg TID PRN PO 03/02/17 04:15 04/01/17 04:14 03/03/17 02:39 200 MG Hydromorphone HCl (Dilaudid Inj) 0.5 mg Q3H PRN IV 03/02/17 19:00 03/16/17 18:59 03/03/17 07:06 0.5 MG Last 24 Hours Test 03/03/17 06:37 White Blood Count 5.93 K/uL Red Blood Count 4.08 M/uL Hemoglobin 11.3 g/dL Hematocrit 33.8 % Mean Corpuscular Volume 82.8 fL Mean Corpuscular Hemoglobin 27.7 pg Mean Corpuscular Hemoglobin Concent 33.4 g/dl RDW Standard Deviation 38.7 fL RDW Coefficient of Variation 12.8 % Platelet Count 229 K/uL Mean Platelet Volume 10.0 fL Sodium Level 141 mmol/L Potassium Level 3.3 mmol/L Chloride Level 108 mmol/L Carbon Dioxide Level 23 mmol/L Anion Gap 10.0 mmol/L Blood Urea Nitrogen 26 mg/dl Creatinine 2.50 mg/dl Est Creatinine Clear Calc Drug Dose 47.9 ml/min Estimated GFR () 40.7 Estimated GFR (Non- 35.1 BUN/Creatinine Ratio 10.5 Random Glucose 63 mg/dl Calcium Level 8.6 mg/dl Phosphorus Level 3.5 mg/dl Magnesium Level 1.7 mg/dl Assessment & Plan PATRICK-improving with the normal saline and horowitz catheter. defer to urology. my opinion would be to leave catheter in place if he is not straight cathing at home. hopefully creatinine improves back to baseline by sunday. hypokalemia-repleting prn hypomag-repleting prn.
--- NOTE | 2017-03-03 11:45 | Progress Note ---
Progress Note Date of Service Mar 03, 2017. Progress Note Hospital day #1 Patient afebrile vital signs are stable Gomez catheter draining clear yellow urine. Patient had a postobstructive diuresis of 6900 cc of urine over the last 24 hours He is bothered by the catheter but is tolerating it okay Creatinine is down to 2.5 At this point I would leave the Gomez catheter indwelling to let his acute kidney injury resolved If he is unable to do CIC he may need to keep the catheter on a longer term basis He should follow-up with Dr. Rendon after discharge
[2017-03-03 14:41] VITALS: BP 149/90; PULSE 52; TEMP 36.7; O2SAT 97
[2017-03-03] MEDS: ACETAMINOPHEN 325 MG TAB PO PRN (16:40)
[2017-03-03] MEDS: ONDANSETRON INJ 2 MG/ML 2 ML VIAL IV PRN (17:40)
--- NOTE | 2017-03-03 17:58 | Progress Note ---
Medicine Progress Note Date & Time of Visit: Mar 03, 2017 at 17:52. Subjective Pt was seen and examined Lying in bed with no distress Pt said that his abdominal pain feels much better Continue to have some discomfort with the Gomez cath Denies any chest pain, palpitation, dizziness and SOB Objective Last 8 Hrs Date Time Temp Pulse Resp B/P (MAP) Pulse Ox O2 Delivery O2 Flow Rate FiO2 03/03/17 15:40 Room Air 03/03/17 14:41 36.7 52 18 149/90 (109) 97 Room Air Physical Exam: General- No acute distress Head- atraumatic Eyes- PERRL, EOMI ENT- oropharynx clear Neck- supple, no JVD Lungs- clear to auscultation Heart- regular rhythm; no murmur Abdomen- normal bowel sounds, +mild tender Extremities- no pretibial edema, no calf tenderness Neuro- alert, oriented x 3; PERRL, EOMI; no facial palsy Skin- warm & dry Laboratory Results: Last 24 Hours Test 03/03/17 06:37 White Blood Count 5.93 K/uL Red Blood Count 4.08 M/uL Hemoglobin 11.3 g/dL Hematocrit 33.8 % Mean Corpuscular Volume 82.8 fL Mean Corpuscular Hemoglobin 27.7 pg Mean Corpuscular Hemoglobin Concent 33.4 g/dl RDW Standard Deviation 38.7 fL RDW Coefficient of Variation 12.8 % Platelet Count 229 K/uL Mean Platelet Volume 10.0 fL Sodium Level 141 mmol/L Potassium Level 3.3 mmol/L Chloride Level 108 mmol/L Carbon Dioxide Level 23 mmol/L Anion Gap 10.0 mmol/L Blood Urea Nitrogen 26 mg/dl Creatinine 2.50 mg/dl Est Creatinine Clear Calc Drug Dose 47.9 ml/min Estimated GFR () 40.7 Estimated GFR (Non- 35.1 BUN/Creatinine Ratio 10.5 Random Glucose 63 mg/dl Calcium Level 8.6 mg/dl Phosphorus Level 3.5 mg/dl Magnesium Level 1.7 mg/dl Assessment & Plan Abdominal pain Due to urinary retention Likely secondary to Bladder Extrophy/Neurogenic bladder/Obstructive Uropathy H/O multiple bladder surgeries for bladder exstrophy. Has been unable to self straight cath Renal u/s showed Severe bilateral hydroureteronephrosis, right more severe than left. Continue pain management with Dilaudid q3h starting on regular diet pain improved B/L Hydroureteronephrosis Renal u/s showed severe bilateral hydroureteronephrosis Continue IV ceftriaxone Urology on board recommended to keep Gomez and continue IVF Continue abx for 2 weeks Preliminary Urine cx no growth blood cx no growth has a follow up appt with urology on 03/07 Acute kidney injury Due to severe bilateral hydroureteronephrosis Cr:1.4 at baseline Cr on admission 3.9, improved to 2.5 today continue Gomez, IV fluids Nephrology on board Avoid nephrotoxic agents Continue monitor BMP Abnormal UA UA positive for nitrite and leukocytes blood cx no growth Preliminary Urine cx no growth Continue IV Rocephin Electrolytes imbalance Mg and Potassium replaced continue monitor Tobacco abuse Counseling on smoking cessation Elevated Blood pressure likely situational and pain Monitor Diarrhea Recent antibiotic use stool for C.diff was not collected improved DVT px: SCDs Encourage to ambulate Code Status: Full Code Disposition Continue IVF and abx Will discharge once medically stable Consultants: Urology Nephrology Current Inpatient Medications: Current Inpatient Medications Medications (Trade) Dose Ordered Sig/Tiffany Route Start Time Stop Time Status Last Admin Dose Admin Acetaminophen (Tylenol Tab) 650 mg Q4H PRN PO 03/02/17 04:00 04/01/17 03:59 03/03/17 16:40 650 MG Ondansetron HCl (Zofran Inj) 4 mg Q6H PRN IV 03/02/17 04:00 04/01/17 03:59 03/03/17 17:40 4 MG Ceftriaxone Sodium 1 gm/ Dextrose 50 ml @ 100 mls/hr Q24H IV 03/03/17 04:00 03/12/17 03:59 03/03/17 04:09 100 MLS/HR Sodium Chloride 1,000 ml @ 125 mls/hr Q8H IV 03/02/17 04:15 04/01/17 04:14 03/03/17 12:04 125 MLS/HR Phenazopyridine HCl (Pyridium Tab) 200 mg TID PRN PO 03/02/17 04:15 04/01/17 04:14 03/03/17 15:33 200 MG Hydromorphone HCl (Dilaudid Inj) 0.5 mg Q3H PRN IV 03/02/17 19:00 03/16/17 18:59 03/03/17 16:40 0.5 MG
[2017-03-04 00:02] VITALS: BP_SYST 151; BP_SYST 155; BP_DIAS 91; BP_DIAS 95; PULSE 55; TEMP 36.8; O2SAT 97
[2017-03-04] MEDS: HYDROmorphone INJ 0.5 MG/0.5 ML SYR IV PRN ×7 (01:44→22:31)
[2017-03-04] MEDS: PHENAZOPYRIDINE HCL 200 MG TAB PO PRN ×2 (02:03→15:48)
[2017-03-04] MEDS: SODIUM CHLORIDE 0.9% 1000ML 1,000 ML IV SCH ×3 (03:35→20:45)
[2017-03-04] MEDS: CEFTRIAXONE SOD INJ 1 GM in DEXTROSE 5% ADD-VANTAGE 50ML 50 ML IV SCH (03:35)
[2017-03-04 06:54] LABS: BUN/CREATININE RATIO 10.2 (10-20); CALCIUM 8.3 mg/dl (8.5-10.1); MAGNESIUM 1.7 mg/dl (1.8-2.4); POTASSIUM 3.4 mmol/L (3.5-5.1)
[2017-03-04 07:09] VITALS: BP 146/92; PULSE 52; TEMP 36.5; O2SAT 96
[2017-03-04] MEDS ORDERED: MAGNESIUM SULFATE 1GM / D5W 1 GM in PREMIXED IN D5W 100 ML IV ONE ×2 (08:15→09:30)
[2017-03-04] MEDS ORDERED: POTASSIUM CHLORIDE 20 MEQ TABCR PO ONE (08:15)
--- NOTE | 2017-03-04 09:17 | Nephrology Progress Note ---
Nephrology Progress Note Date of Service: Mar 04, 2017. Subjective 22 yo male with patrick from hydro which is improving with horowitz catheter. Tolerating the iv fluids. Does have an upset stomach after eating but able to drink well. pt catching up on his sleep. more comfortable every day. catheter bothering him but otherwise ok. Objective Date Time Temp Pulse Resp B/P (MAP) Pulse Ox O2 Delivery O2 Flow Rate FiO2 03/04/17 07:09 36.5 52 14 146/92 (110) 96 Room Air 03/04/17 00:02 36.8 55 18 155/91 (112) 97 151/95 (113) 03/03/17 23:16 Room Air 03/03/17 15:40 Room Air 03/03/17 14:41 36.7 52 18 149/90 (109) 97 Room Air Physical Exam: General-aaox3 Eyes-no scleral icterus ENT-mmm Neck-supple Lungs-clear Heart-bradycardia Abdomen-bs+ s/nt/nd Extremities-no c/c/e Neuro-nonfocal Current Inpatient Medications Medications (Trade) Dose Ordered Sig/Tiffany Route Start Time Stop Time Status Last Admin Dose Admin Acetaminophen (Tylenol Tab) 650 mg Q4H PRN PO 03/02/17 04:00 04/01/17 03:59 03/03/17 16:40 650 MG Ondansetron HCl (Zofran Inj) 4 mg Q6H PRN IV 03/02/17 04:00 04/01/17 03:59 03/03/17 17:40 4 MG Ceftriaxone Sodium 1 gm/ Dextrose 50 ml @ 100 mls/hr Q24H IV 03/03/17 04:00 03/12/17 03:59 03/04/17 03:35 100 MLS/HR Sodium Chloride 1,000 ml @ 125 mls/hr Q8H IV 03/02/17 04:15 04/01/17 04:14 03/04/17 03:35 125 MLS/HR Phenazopyridine HCl (Pyridium Tab) 200 mg TID PRN PO 03/02/17 04:15 04/01/17 04:14 03/04/17 02:03 200 MG Hydromorphone HCl (Dilaudid Inj) 0.5 mg Q3H PRN IV 03/02/17 19:00 03/16/17 18:59 03/04/17 08:44 0.5 MG Magnesium Sulfate 1 gm/Prmx 100 ml @ 100 mls/hr ONE ONCE IV 03/04/17 08:15 03/04/17 09:14 03/04/17 08:43 100 MLS/HR Last 24 Hours Test 03/04/17 05:46 Sodium Level 141 mmol/L Potassium Level 3.4 mmol/L Chloride Level 108 mmol/L Carbon Dioxide Level 25 mmol/L Anion Gap 8.0 mmol/L Blood Urea Nitrogen 20 mg/dl Creatinine 2.00 mg/dl Est Creatinine Clear Calc Drug Dose 59.8 ml/min Estimated GFR () 53.3 Estimated GFR (Non- 46.0 BUN/Creatinine Ratio 10.2 Random Glucose 77 mg/dl Calcium Level 8.3 mg/dl Magnesium Level 1.7 mg/dl Assessment & Plan PATRICK-improving with normal saline and horowitz catheter. creatinine improved to 2. not yet back to baseline. for now, continue current iv fluids and leave horowitz in place. pt urinating about 6 liters a day and on iv fluids to try to prevent volume depletion with the aggressive urination. continue to replete electrolytes as the kidney function continues to improve. will eventually decrease the rate of iv fluids.
[2017-03-04] MEDS ORDERED: POTASSIUM CHLORIDE 10 MEQ TABCR PO ONE (09:30)
--- NOTE | 2017-03-04 14:04 | Progress Note ---
Medicine Progress Note Date & Time of Visit: Mar 04, 2017 at 12:00. Subjective Pt was seen and examined Sitting in bed with no distress eating Pt said that he feels ok He said that his pain is well controlled Denies any fever, palpitation, dizziness and SOB Objective Last 8 Hrs Date Time Temp Pulse Resp B/P (MAP) Pulse Ox O2 Delivery O2 Flow Rate FiO2 03/04/17 07:50 Room Air 03/04/17 07:09 36.5 52 14 146/92 (110) 96 Room Air Physical Exam: General- No acute distress Head- atraumatic Eyes- PERRL, EOMI ENT- oropharynx clear Neck- supple, no JVD Lungs- clear to auscultation Heart- regular rhythm; no murmur Abdomen- normal bowel sounds, +mild tender Extremities- no pretibial edema, no calf tenderness Neuro- alert, oriented x 3; PERRL, EOMI; no facial palsy Skin- warm & dry Laboratory Results: Last 24 Hours Test 03/04/17 05:46 Sodium Level 141 mmol/L Potassium Level 3.4 mmol/L Chloride Level 108 mmol/L Carbon Dioxide Level 25 mmol/L Anion Gap 8.0 mmol/L Blood Urea Nitrogen 20 mg/dl Creatinine 2.00 mg/dl Est Creatinine Clear Calc Drug Dose 59.8 ml/min Estimated GFR () 53.3 Estimated GFR (Non- 46.0 BUN/Creatinine Ratio 10.2 Random Glucose 77 mg/dl Calcium Level 8.3 mg/dl Magnesium Level 1.7 mg/dl Assessment & Plan Abdominal pain Due to urinary retention Likely secondary to Bladder Extrophy/Neurogenic bladder/Obstructive Uropathy H/O multiple bladder surgeries for bladder exstrophy. Has been unable to self straight cath Renal u/s showed Severe bilateral hydroureteronephrosis, right more severe than left. Continue pain management with Dilaudid q3h starting on regular diet pain improved B/L Hydroureteronephrosis Renal u/s showed severe bilateral hydroureteronephrosis Continue IV ceftriaxone Urology on board recommended to keep Gomez and continue IVF Continue abx for 2 weeks Urine cx no growth blood cx no growth has a follow up appt with urology on 03/07 Acute kidney injury Due to severe bilateral hydroureteronephrosis Cr:1.4 at baseline Cr on admission 3.9, improved to 2 today continue Gomez, IV fluids Nephrology on board Avoid nephrotoxic agents Continue monitor BMP Abnormal UA UA positive for nitrite and leukocytes blood cx no growth Urine cx no growth, possible contaminated On IV Rocephin Will need 2 week sof abx Electrolytes imbalance Mg and Potassium replaced continue monitor Tobacco abuse Counseling on smoking cessation Elevated Blood pressure likely situational and pain Monitor Diarrhea Recent antibiotic use stool for C.diff was not collected Resoleved DVT px: SCDs Encourage to ambulate Code Status: Full Code Disposition Continue IVF and abx Will discharge once medically stable Consultants: Urology Nephrology Current Inpatient Medications: Current Inpatient Medications Medications (Trade) Dose Ordered Sig/Tiffany Route Start Time Stop Time Status Last Admin Dose Admin Acetaminophen (Tylenol Tab) 650 mg Q4H PRN PO 03/02/17 04:00 04/01/17 03:59 03/03/17 16:40 650 MG Ondansetron HCl (Zofran Inj) 4 mg Q6H PRN IV 03/02/17 04:00 04/01/17 03:59 03/03/17 17:40 4 MG Ceftriaxone Sodium 1 gm/ Dextrose 50 ml @ 100 mls/hr Q24H IV 03/03/17 04:00 03/12/17 03:59 03/04/17 03:35 100 MLS/HR Sodium Chloride 1,000 ml @ 125 mls/hr Q8H IV 03/02/17 04:15 04/01/17 04:14 03/04/17 11:50 125 MLS/HR Phenazopyridine HCl (Pyridium Tab) 200 mg TID PRN PO 03/02/17 04:15 04/01/17 04:14 03/04/17 02:03 200 MG Hydromorphone HCl (Dilaudid Inj) 0.5 mg Q3H PRN IV 03/02/17 19:00 03/16/17 18:59 03/04/17 11:53 0.5 MG
[2017-03-04 15:07] VITALS: BP 155/92; PULSE 65; TEMP 36.8; O2SAT 96
[2017-03-05 00:14] VITALS: BP_SYST 155; BP_SYST 162; BP_DIAS 109; BP_DIAS 95; PULSE 57; TEMP 37.2; O2SAT 97
[2017-03-05] MEDS: ONDANSETRON INJ 2 MG/ML 2 ML VIAL IV PRN (00:19)
[2017-03-05] MEDS: PHENAZOPYRIDINE HCL 200 MG TAB PO PRN (01:50)
[2017-03-05] MEDS: HYDROmorphone INJ 0.5 MG/0.5 ML SYR IV PRN ×7 (01:50→22:15)
[2017-03-05] MEDS: CEFTRIAXONE SOD INJ 1 GM in DEXTROSE 5% ADD-VANTAGE 50ML 50 ML IV SCH (03:49)
[2017-03-05 07:00] VITALS: BP 145/91; PULSE 53; TEMP 36.6; O2SAT 96
[2017-03-05 07:34] LABS: BUN/CREATININE RATIO 9.2 (10-20); CALCIUM 8.6 mg/dl (8.5-10.1); CREATININE 2.1 mg/dl (0.60-1.40); MAGNESIUM 1.8 mg/dl (1.8-2.4); POTASSIUM 3.4 mmol/L (3.5-5.1)
[2017-03-05] MEDS: SODIUM CHLORIDE 0.9% 1000ML 1,000 ML IV SCH ×2 (07:57→18:00)
[2017-03-05] MEDS ORDERED: TAMSULOSIN HCL 0.4 MG CAP PO ONE (08:14)
--- NOTE | 2017-03-05 08:32 | Progress Note ---
Subjective Date of Service: Mar 05, 2017. Subjective Pt evaluation today including: conversation w/ patient, chart review, lab review Voiding: horowitz catheter in place (patent, draining orange-light calhoun colored urine) 22 yo male with UR, ARF, bilateral hydro, hx of bladder extrophy. Horowitz remains in place draining light orange-calhoun colored urine. Pt receiving Pyridium. Pt c/o some bladder discomfort this morning from the horwoitz catheter. Unable to perform CIC at home as he felt he was meeting resistance. UC&S noted to be negative. No improvement in Cr this morning after previously improving since horowitz placement. Noted to be 2.1 this morning from 2.00 yesterday. Problem List Medical Problems: (1) Anemia Status: Acute (2) Renal failure Status: Acute (3) Suprapubic abdominal pain Status: Acute (4) Urinary tract infection Status: Acute Review of Systems Constitutional: No fever, No chills Respiratory: No shortness of breath Cardiac: No chest pain Abdomen: + nausea, No vomiting Male : + hematuria, + problem reported (bladder pain ) Heme: No abnormal bleeding/bruising Objective Vital Signs Date Time Temp Pulse Resp B/P (MAP) Pulse Ox O2 Delivery O2 Flow Rate FiO2 03/05/17 07:00 36.6 53 17 145/91 (109) 96 Room Air 03/05/17 00:30 Room Air 03/05/17 00:14 37.2 57 18 162/109 (126) 97 Room Air 155/95 (115) 03/04/17 15:45 Room Air 03/04/17 15:07 36.8 65 18 155/92 (113) 96 Room Air Physical Exam General Appearance: no apparent distress Eyes: normal inspection ENT: hearing grossly normal Neck: no JVD Respiratory/Chest: no respiratory distress, no accessory muscle use Cardiovascular: no JVD Extremities: normal inspection Neurologic/Psychiatric: alert, normal mood/affect, oriented x 3 Skin: normal color Laboratory Results Last 24 Hours Test 03/05/17 06:19 Sodium Level 141 mmol/L Potassium Level 3.4 mmol/L Chloride Level 107 mmol/L Carbon Dioxide Level 28 mmol/L Anion Gap 6.0 mmol/L Blood Urea Nitrogen 19 mg/dl Creatinine 2.10 mg/dl Est Creatinine Clear Calc Drug Dose 57.0 ml/min Estimated GFR () 50.3 Estimated GFR (Non- 43.4 BUN/Creatinine Ratio 9.2 Random Glucose 75 mg/dl Calcium Level 8.6 mg/dl Magnesium Level 1.8 mg/dl Assessment and Plan A/P: Urinary retention, ARF, bilateral hydronephrosis, hx of bladder extrophy Continue horowitz catheter for now. Will d/c Pyridium given his persistent elevated Cr. Switch to oxybutynin PRN for bladder spasms. Continue to monitor renal function. Will also start Flomax. Monitor for orthostasis after administration. Pt to f/u with Dr. Rendon in the office this Sunday-. Will keep appt as scheduled. Will continue to follow along with primary service.
[2017-03-05] MEDS ORDERED: POTASSIUM CHLORIDE 20 MEQ TABCR PO ONE (11:30)
--- NOTE | 2017-03-05 13:08 | Nephrology Progress Note ---
Nephrology Progress Note Date of Service: Mar 05, 2017. Subjective 22 yo male with patrick from hydro which is improving with horowitz catheter. Tolerating the iv fluids. pt continues to have some mild discomfort and nausea. taking anti-emetics. no sob. Objective Date Time Temp Pulse Resp B/P (MAP) Pulse Ox O2 Delivery O2 Flow Rate FiO2 03/05/17 07:45 Room Air 03/05/17 07:00 36.6 53 17 145/91 (109) 96 Room Air 03/05/17 00:30 Room Air 03/05/17 00:14 37.2 57 18 162/109 (126) 97 Room Air 155/95 (115) 03/04/17 15:45 Room Air 03/04/17 15:07 36.8 65 18 155/92 (113) 96 Room Air Physical Exam: General-aaox3 Eyes-no scleral icterus ENT-mmm Neck-supple Lungs-clear Heart-bradycardia Abdomen-bs+ s/nt/nd Extremities-no c/c/e Neuro-nonfocal Current Inpatient Medications Medications (Trade) Dose Ordered Sig/Tiffany Route Start Time Stop Time Status Last Admin Dose Admin Acetaminophen (Tylenol Tab) 650 mg Q4H PRN PO 03/02/17 04:00 04/01/17 03:59 03/03/17 16:40 650 MG Ondansetron HCl (Zofran Inj) 4 mg Q6H PRN IV 03/02/17 04:00 04/01/17 03:59 03/05/17 00:19 4 MG Ceftriaxone Sodium 1 gm/ Dextrose 50 ml @ 100 mls/hr Q24H IV 03/03/17 04:00 03/12/17 03:59 03/05/17 03:49 100 MLS/HR Sodium Chloride 1,000 ml @ 100 mls/hr Q10H IV 03/02/17 04:15 04/01/17 04:14 03/05/17 07:57 100 MLS/HR Hydromorphone HCl (Dilaudid Inj) 0.5 mg Q3H PRN IV 03/02/17 19:00 03/16/17 18:59 03/05/17 12:37 0.5 MG Oxybutynin Chloride (Ditropan Tab) 5 mg TID PRN PO 03/05/17 08:15 04/04/17 08:14 Tamsulosin HCl (Flomax Cap) 0.4 mg HS PO 03/05/17 21:00 04/04/17 20:59 Last 24 Hours Test 03/05/17 06:19 Sodium Level 141 mmol/L Potassium Level 3.4 mmol/L Chloride Level 107 mmol/L Carbon Dioxide Level 28 mmol/L Anion Gap 6.0 mmol/L Blood Urea Nitrogen 19 mg/dl Creatinine 2.10 mg/dl Est Creatinine Clear Calc Drug Dose 57.0 ml/min Estimated GFR () 50.3 Estimated GFR (Non- 43.4 BUN/Creatinine Ratio 9.2 Random Glucose 75 mg/dl Calcium Level 8.6 mg/dl Magnesium Level 1.8 mg/dl Assessment & Plan PATRICK-improving with normal saline and horowitz catheter. creatinine improved to 2. unfortunately creatinine not improved for past 24 hours. there is a concern that it may not improve further. volume status in my opinion is acceptable. however is/os negative. if creatinine does not improve or actually worsens tomorrow, will increase rate of iv fluids.
[2017-03-05] MEDS: OXYBUTYNIN CHLORIDE 5 MG TAB PO PRN (13:59)
[2017-03-05 15:08] VITALS: BP 147/91; PULSE 53; TEMP 36.8; O2SAT 96
--- NOTE | 2017-03-05 17:23 | Progress Note ---
Medicine Progress Note Date & Time of Visit: Mar 05, 2017 at 10:20. Subjective Pt was seen and examined Lying in bed with no distress Pt said that he feel fine Denies any chest pain, palpitation, dizziness and SOB Objective Last 8 Hrs Date Time Temp Pulse Resp B/P (MAP) Pulse Ox O2 Delivery O2 Flow Rate FiO2 03/05/17 15:08 36.8 53 18 147/91 (109) 96 Room Air Physical Exam: General- No acute distress Head- atraumatic Eyes- PERRL, EOMI ENT- oropharynx clear Neck- supple, no JVD Lungs- clear to auscultation Heart- regular rhythm; no murmur Abdomen- normal bowel sounds, +mild tender Extremities- no pretibial edema, no calf tenderness Neuro- alert, oriented x 3; PERRL, EOMI; no facial palsy Skin- warm & dry Laboratory Results: Last 24 Hours Test 03/05/17 06:19 Sodium Level 141 mmol/L Potassium Level 3.4 mmol/L Chloride Level 107 mmol/L Carbon Dioxide Level 28 mmol/L Anion Gap 6.0 mmol/L Blood Urea Nitrogen 19 mg/dl Creatinine 2.10 mg/dl Est Creatinine Clear Calc Drug Dose 57.0 ml/min Estimated GFR () 50.3 Estimated GFR (Non- 43.4 BUN/Creatinine Ratio 9.2 Random Glucose 75 mg/dl Calcium Level 8.6 mg/dl Magnesium Level 1.8 mg/dl Assessment & Plan Abdominal pain Due to urinary retention Likely secondary to Bladder Extrophy/Neurogenic bladder/Obstructive Uropathy H/O multiple bladder surgeries for bladder exstrophy. Has been unable to self straight cath Renal u/s showed Severe bilateral hydroureteronephrosis, right more severe than left. Continue pain management with Dilaudid q3h starting on regular diet clinically stable B/L Hydroureteronephrosis Renal u/s showed severe bilateral hydroureteronephrosis Continue IV ceftriaxone Urology on board recommended to keep Goemz and continue IVF Starting on oxybutynin and Flomax Continue abx for 2 weeks Urine cx no growth blood cx no growth D/C Pyridium has a follow up appt with urology on 03/07 Acute kidney injury Due to severe bilateral hydroureteronephrosis Cr:1.4 at baseline Cr on admission 3.9, improved to 2.1 today continue Gomez, IV fluids Nephrology on board Avoid nephrotoxic agents Continue monitor BMP Abnormal UA UA positive for nitrite and leukocytes blood cx no growth Urine cx no growth, possible contaminated On IV Rocephin Will need 2 week of abx Will change to PO abx Electrolytes imbalance Mg and Potassium replaced continue monitor Tobacco abuse Counseling on smoking cessation Elevated Blood pressure likely situational and pain Monitor Diarrhea Recent antibiotic use stool for C.diff was not collected Resolved DVT px: SCDs Encourage to ambulate Code Status: Full Code Disposition Continue IVF and abx Will discharge once medically stable Consultants: Urology Nephrology Current Inpatient Medications: Current Inpatient Medications Medications (Trade) Dose Ordered Sig/Tiffany Route Start Time Stop Time Status Last Admin Dose Admin Acetaminophen (Tylenol Tab) 650 mg Q4H PRN PO 03/02/17 04:00 04/01/17 03:59 03/03/17 16:40 650 MG Ondansetron HCl (Zofran Inj) 4 mg Q6H PRN IV 03/02/17 04:00 04/01/17 03:59 03/05/17 00:19 4 MG Ceftriaxone Sodium 1 gm/ Dextrose 50 ml @ 100 mls/hr Q24H IV 03/03/17 04:00 03/12/17 03:59 03/05/17 03:49 100 MLS/HR Sodium Chloride 1,000 ml @ 100 mls/hr Q10H IV 03/02/17 04:15 04/01/17 04:14 03/05/17 07:57 100 MLS/HR Hydromorphone HCl (Dilaudid Inj) 0.5 mg Q3H PRN IV 03/02/17 19:00 03/16/17 18:59 03/05/17 15:48 0.5 MG Oxybutynin Chloride (Ditropan Tab) 5 mg TID PRN PO 03/05/17 08:15 04/04/17 08:14 03/05/17 13:59 5 MG Tamsulosin HCl (Flomax Cap) 0.4 mg HS PO 03/05/17 21:00 04/04/17 20:59
[2017-03-05] MEDS ORDERED: NURSING VERBAL MED ORDER ONE (19:15)
[2017-03-05] MEDS: BELLADONNA/OPIUM SUPP 60 MG SUPP PR PRN (19:28)
[2017-03-05] MEDS: TAMSULOSIN HCL 0.4 MG CAP PO SCH (20:31)
[2017-03-05] MEDS ORDERED: TAMSULOSIN HCL 0.4 MG CAP PO SCH (21:00)
[2017-03-05 22:00] VITALS: BP_SYST 132; BP_SYST 149; BP_DIAS 75; BP_DIAS 85; BP_DIAS 87
[2017-03-05 23:20] VITALS: BP 148/91; PULSE 49; TEMP 36.9; O2SAT 98
[2017-03-06] MEDS: OXYBUTYNIN CHLORIDE 5 MG TAB PO PRN (00:41)
[2017-03-06] MEDS: HYDROmorphone INJ 0.5 MG/0.5 ML SYR IV PRN ×3 (01:16→07:44)
[2017-03-06] MEDS: CEFTRIAXONE SOD INJ 1 GM in DEXTROSE 5% ADD-VANTAGE 50ML 50 ML IV SCH (03:21)
[2017-03-06] MEDS: SODIUM CHLORIDE 0.9% 1000ML 1,000 ML IV SCH ×3 (03:21→23:26)
[2017-03-06 06:30] LABS: CALCIUM 8.6 mg/dl (8.5-10.1); CREATININE 1.94 mg/dl (0.60-1.40); POTASSIUM 3.5 mmol/L (3.5-5.1)
[2017-03-06 07:27] VITALS: BP 145/89; PULSE 54; TEMP 37; O2SAT 98
--- NOTE | 2017-03-06 08:26 | Progress Note ---
Subjective Date of Service: Mar 06, 2017. Subjective Pt evaluation today including: conversation w/ patient, chart review, lab review Voiding: horowitz catheter in place (patent, draining clear, yellow urine) 22 yo male with bilateral hydro, UR, ARF, hx of bladder extrophy. The pt is frustrated this morning. He states no one is helping him and none of the providers are spending any time with him. He c/o leaking around his catheter and bothersome bladder spasms. He also notes that he is able to empty "500ml" into his catheter with Valsalva, and therefore does not think his horowitz is draining properly. Cr slightly improved to 1.94 this morning. He has oxybutynin and B&O suppositories ordered for bladder spasms. Problem List Medical Problems: (1) Anemia Status: Acute (2) Renal failure Status: Acute (3) Suprapubic abdominal pain Status: Acute (4) Urinary tract infection Status: Acute Review of Systems Constitutional: No fever, No chills Respiratory: No shortness of breath Cardiac: No chest pain Abdomen: + pain (suprapubic pain ), + nausea, No vomiting Male : No hematuria Heme: No abnormal bleeding/bruising Objective Vital Signs Date Time Temp Pulse Resp B/P (MAP) Pulse Ox O2 Delivery O2 Flow Rate FiO2 03/06/17 07:27 37.0 54 18 145/89 (107) 98 Room Air 03/06/17 00:47 Room Air 03/05/17 23:20 36.9 49 16 148/91 (110) 98 Room Air 03/05/17 22:00 149/87 (107) 132/75 (94) 149/85 (106) 03/05/17 15:50 Room Air 03/05/17 15:08 36.8 53 18 147/91 (109) 96 Room Air Physical Exam General Appearance: no apparent distress Eyes: normal inspection ENT: hearing grossly normal Neck: no JVD Respiratory/Chest: no respiratory distress, no accessory muscle use Cardiovascular: no JVD Extremities: normal inspection Neurologic/Psychiatric: alert, normal mood/affect, oriented x 3 Skin: normal color Laboratory Results Last 24 Hours Test 03/06/17 05:38 Sodium Level 142 mmol/L Potassium Level 3.5 mmol/L Chloride Level 107 mmol/L Carbon Dioxide Level 29 mmol/L Anion Gap 7.0 mmol/L Blood Urea Nitrogen 23 mg/dl Creatinine 1.94 mg/dl Est Creatinine Clear Calc Drug Dose 61.7 ml/min Estimated GFR () 55.3 Estimated GFR (Non- 47.7 BUN/Creatinine Ratio 12.0 Random Glucose 77 mg/dl Calcium Level 8.6 mg/dl Assessment and Plan A/P: Urinary retention, ARF, bilateral hydronephrosis, hx of bladder extrophy Will switch the pt to a larger 18Fr horowitz catheter to see if this helps with leaking around the catheter and aids in drainage. His horowitz appears to be draining well this morning, but will also check a bladder scan qshift with horowitz in place to ensure proper drainage of the catheter. Continue horowitz catheter for now. Continue oxybutynin TID and B&O suppositories for pain and bladder spasms. Will continue to avoid Pyridium in the setting of ARF. Cr slighly improved this morning. Continue to monitor renal function. Unfortunately he may have a new elevated baseline. Continue Flomax. Pt OK for d/c home from [facility]. Pt to f/u with Dr. Rendon in the office this Sunday-. Will keep appt as scheduled.
[2017-03-06] MEDS: OXYBUTYNIN CHLORIDE 5 MG TAB PO SCH ×3 (09:29→20:36)
[2017-03-06 11:28] VITALS: BP 138/89; PULSE 53; O2SAT 96
[2017-03-06] MEDS: OXYCODONE HCL IR 5 MG TAB (IMMEDIATE RELEASE) PO PRN ×3 (12:20→21:04)
--- NOTE | 2017-03-06 12:35 | Progress Note ---
Medicine Progress Note Date & Time of Visit: Mar 06, 2017 at 12:18. Subjective Pt was seen and examined Lying in bed with no distress His Gomez catheter was changed today Pt said that his abdominal pain improves significantly because of less pressure on his bladder Denies any chest pain, palpitation, dizziness and SOB Objective Last 8 Hrs Date Time Temp Pulse Resp B/P (MAP) Pulse Ox O2 Delivery O2 Flow Rate FiO2 03/06/17 11:28 53 18 138/89 (105) 96 Room Air 03/06/17 07:45 Room Air 03/06/17 07:27 37.0 54 18 145/89 (107) 98 Room Air Physical Exam: General- No acute distress Head- atraumatic Eyes- PERRL, EOMI ENT- oropharynx clear Neck- supple, no JVD Lungs- clear to auscultation Heart- regular rhythm; no murmur Abdomen- normal bowel sounds, +mild tender with palpation Extremities- no pretibial edema, no calf tenderness Neuro- alert, oriented x 3; PERRL, EOMI; no facial palsy Skin- warm & dry Laboratory Results: Last 24 Hours Test 03/06/17 05:38 Sodium Level 142 mmol/L Potassium Level 3.5 mmol/L Chloride Level 107 mmol/L Carbon Dioxide Level 29 mmol/L Anion Gap 7.0 mmol/L Blood Urea Nitrogen 23 mg/dl Creatinine 1.94 mg/dl Est Creatinine Clear Calc Drug Dose 61.7 ml/min Estimated GFR () 55.3 Estimated GFR (Non- 47.7 BUN/Creatinine Ratio 12.0 Random Glucose 77 mg/dl Calcium Level 8.6 mg/dl Assessment & Plan Abdominal pain Due to urinary retention Likely secondary to Bladder Extrophy/Neurogenic bladder/Obstructive Uropathy H/O multiple bladder surgeries for bladder exstrophy. Has been unable to self straight cath Renal u/s showed Severe bilateral hydroureteronephrosis, right more severe than left. Continue pain management with Dilaudid q3h On regular diet clinically stable 03/06 Pain improves significantly Dilaudid changed to oxycodone Stable B/L Hydroureteronephrosis Renal u/s showed severe bilateral hydroureteronephrosis Continue IV ceftriaxone Urology on board recommended to keep Gomez and continue IVF Starting on oxybutynin and Flomax Continue abx for 2 weeks Urine cx no growth blood cx no growth D/C Pyridium has a follow up appt with urology on 03/07 03/06 Gomez was changed today Good urinary output Will keep Gomez on discharge follow up appt with Urology schedule for 03/07 Possible he will be in the hospital tomorrow Change abx to PO on discharge to complete 2 weeks course of abx Acute kidney injury Due to severe bilateral hydroureteronephrosis Cr:1.4 at baseline Cr on admission 3.9, improved to 1.9 today continue Gomez, IV fluids Nephrology on board Avoid nephrotoxic agents Continue monitor BMP Abnormal UA UA positive for nitrite and leukocytes blood cx no growth Urine cx no growth, possible contaminated On IV Rocephin Will need 2 week of abx Will change to PO abx on discharge Electrolytes imbalance Mg and Potassium replaced continue monitor stable Tobacco abuse Counseling on smoking cessation Elevated Blood pressure likely situational and pain Monitor Diarrhea Recent antibiotic use stool for C.diff was not collected Resolved DVT px: SCDs Encourage to ambulate Code Status: Full Code Disposition Continue IVF and abx Will discharge once medically stable Consultants: Urology Nephrology Current Inpatient Medications: Current Inpatient Medications Medications (Trade) Dose Ordered Sig/Tiffany Route Start Time Stop Time Status Last Admin Dose Admin Acetaminophen (Tylenol Tab) 650 mg Q4H PRN PO 03/02/17 04:00 04/01/17 03:59 03/03/17 16:40 650 MG Ondansetron HCl (Zofran Inj) 4 mg Q6H PRN IV 03/02/17 04:00 04/01/17 03:59 03/05/17 00:19 4 MG Ceftriaxone Sodium 1 gm/ Dextrose 50 ml @ 100 mls/hr Q24H IV 03/03/17 04:00 03/12/17 03:59 03/06/17 03:21 100 MLS/HR Sodium Chloride 1,000 ml @ 100 mls/hr Q10H IV 03/02/17 04:15 04/01/17 04:14 03/06/17 03:21 100 MLS/HR Tamsulosin HCl (Flomax Cap) 0.4 mg HS PO 03/05/17 21:00 04/04/17 20:59 03/05/17 20:31 0.4 MG Belladonna/Opium (B & O Adult Supp) 60 mg Q12H PRN NE 03/05/17 19:15 03/19/17 19:14 03/05/17 19:28 60 MG Oxybutynin Chloride (Ditropan Tab) 5 mg TID PO 03/06/17 09:00 04/05/17 08:59 03/06/17 09:29 5 MG Oxycodone HCl (Roxicodone Immediate Rel Tab) 5 mg Q4HWA PRN PO 03/06/17 12:15 03/20/17 12:14
[2017-03-06 15:25] VITALS: BP 142/89; PULSE 56; TEMP 36.9; O2SAT 96
--- NOTE | 2017-03-06 16:18 | Nephrology Progress Note ---
Nephrology Progress Note Date of Service: Mar 06, 2017. Subjective 22 yo male with patrick from hydro which is improving with horowitz catheter. However continues to have 7 liters of urination a day. urine is clear and getting four liters of input a day of fluids. had new horowitz placed today secondary to leakage and intermittent flows. Objective Date Time Temp Pulse Resp B/P (MAP) Pulse Ox O2 Delivery O2 Flow Rate FiO2 03/06/17 15:25 36.9 56 17 142/89 (106) 96 Room Air 03/06/17 15:10 Room Air 03/06/17 11:28 53 18 138/89 (105) 96 Room Air 03/06/17 07:45 Room Air 03/06/17 07:27 37.0 54 18 145/89 (107) 98 Room Air 03/06/17 00:47 Room Air 03/05/17 23:20 36.9 49 16 148/91 (110) 98 Room Air 03/05/17 22:00 149/87 (107) 132/75 (94) 149/85 (106) Physical Exam: General-aaox3 Eyes-no scleral icterus ENT-mmm Neck-supple Lungs-clear Heart-bradycardia Abdomen-bs+ s/nt/nd Extremities-no c/c/e Neuro-nonfocal Current Inpatient Medications Medications (Trade) Dose Ordered Sig/Tiffany Route Start Time Stop Time Status Last Admin Dose Admin Acetaminophen (Tylenol Tab) 650 mg Q4H PRN PO 03/02/17 04:00 04/01/17 03:59 03/03/17 16:40 650 MG Ondansetron HCl (Zofran Inj) 4 mg Q6H PRN IV 03/02/17 04:00 04/01/17 03:59 03/05/17 00:19 4 MG Ceftriaxone Sodium 1 gm/ Dextrose 50 ml @ 100 mls/hr Q24H IV 03/03/17 04:00 03/12/17 03:59 03/06/17 03:21 100 MLS/HR Sodium Chloride 1,000 ml @ 100 mls/hr Q10H IV 03/02/17 04:15 04/01/17 04:14 03/06/17 13:34 100 MLS/HR Tamsulosin HCl (Flomax Cap) 0.4 mg HS PO 03/05/17 21:00 04/04/17 20:59 03/05/17 20:31 0.4 MG Belladonna/Opium (B & O Adult Supp) 60 mg Q12H PRN MS 03/05/17 19:15 03/19/17 19:14 03/05/17 19:28 60 MG Oxybutynin Chloride (Ditropan Tab) 5 mg TID PO 03/06/17 09:00 04/05/17 08:59 03/06/17 13:35 5 MG Oxycodone HCl (Roxicodone Immediate Rel Tab) 5 mg Q4HWA PRN PO 03/06/17 12:15 03/20/17 12:14 03/06/17 12:20 5 MG Last 24 Hours Test 03/06/17 05:38 Sodium Level 142 mmol/L Potassium Level 3.5 mmol/L Chloride Level 107 mmol/L Carbon Dioxide Level 29 mmol/L Anion Gap 7.0 mmol/L Blood Urea Nitrogen 23 mg/dl Creatinine 1.94 mg/dl Est Creatinine Clear Calc Drug Dose 61.7 ml/min Estimated GFR () 55.3 Estimated GFR (Non- 47.7 BUN/Creatinine Ratio 12.0 Random Glucose 77 mg/dl Calcium Level 8.6 mg/dl Assessment & Plan PATRICK-improving with normal saline and horowitz catheter. creatinine below 2. about 3 liters negative a day and do not want to decrease the iv fluids at this time although giving fluids may lead to more urination. was hoping the concentration gradient will eventually be set and pt will start to concentrate his urine. may eventually want to decrease the fluids in hopes of urination slowing down however concerned he may become volume depleted given the robust urination. bun is normal so is not an osmotic diuresis.
[2017-03-06] MEDS: BELLADONNA/OPIUM SUPP 60 MG SUPP PR PRN (19:48)
[2017-03-06] MEDS: TAMSULOSIN HCL 0.4 MG CAP PO SCH (20:36)
[2017-03-06 23:02] VITALS: BP 154/91; PULSE 63; TEMP 36.4; O2SAT 96
[2017-03-07] MEDS: ONDANSETRON INJ 2 MG/ML 2 ML VIAL IV PRN (00:25)
[2017-03-07] MEDS: ACETAMINOPHEN 325 MG TAB PO PRN (00:26)
[2017-03-07] MEDS: CEFTRIAXONE SOD INJ 1 GM in DEXTROSE 5% ADD-VANTAGE 50ML 50 ML IV SCH (04:11)
[2017-03-07] MEDS: OXYCODONE HCL IR 5 MG TAB (IMMEDIATE RELEASE) PO PRN ×5 (04:15→23:43)
[2017-03-07 06:44] LABS: BUN/CREATININE RATIO 9.5 (10-20); CALCIUM 8.9 mg/dl (8.5-10.1); CREATININE 1.94 mg/dl (0.60-1.40); POTASSIUM 3.7 mmol/L (3.5-5.1)
--- NOTE | 2017-03-07 07:15 | Progress Note ---
Subjective Date of Service: Mar 07, 2017. Subjective Pt evaluation today including: conversation w/ patient, chart review Voiding: horowitz catheter in place (patent, draining clear, yellow urine) 22 yo male with ARF, UR, bilateral hydronephrosis, and hx of bladder extrophy. Pt reports the leaking around catheter and bladder spasms have improved since changing horowitz to the larger 18Fr horowitz catheter. Cr remains stable at 1.94. Problem List Medical Problems: (1) Anemia Status: Acute (2) Renal failure Status: Acute (3) Suprapubic abdominal pain Status: Acute (4) Urinary tract infection Status: Acute Review of Systems Constitutional: No fever, No chills Respiratory: No shortness of breath Cardiac: No chest pain Abdomen: No pain, No nausea, No vomiting Male : No hematuria Heme: No abnormal bleeding/bruising Objective Vital Signs Date Time Temp Pulse Resp B/P (MAP) Pulse Ox O2 Delivery O2 Flow Rate FiO2 03/06/17 23:30 Room Air 03/06/17 23:02 36.4 63 16 154/91 (112) 96 Room Air 03/06/17 15:25 36.9 56 17 142/89 (106) 96 Room Air 03/06/17 15:10 Room Air 03/06/17 11:28 53 18 138/89 (105) 96 Room Air 03/06/17 07:45 Room Air 03/06/17 07:27 37.0 54 18 145/89 (107) 98 Room Air Physical Exam General Appearance: no apparent distress Eyes: normal inspection ENT: hearing grossly normal Neck: no JVD Respiratory/Chest: no respiratory distress, no accessory muscle use Cardiovascular: no JVD Extremities: normal inspection Neurologic/Psychiatric: alert, normal mood/affect, oriented x 3 Skin: normal color Laboratory Results Last 24 Hours Test 03/07/17 05:55 Sodium Level 142 mmol/L Potassium Level 3.7 mmol/L Chloride Level 107 mmol/L Carbon Dioxide Level 27 mmol/L Anion Gap 8.0 mmol/L Blood Urea Nitrogen 18 mg/dl Creatinine 1.94 mg/dl Est Creatinine Clear Calc Drug Dose 61.7 ml/min Estimated GFR () 55.3 Estimated GFR (Non- 47.7 BUN/Creatinine Ratio 9.5 Random Glucose 84 mg/dl Calcium Level 8.9 mg/dl Assessment and Plan A/P: Urinary retention, ARF, bilateral hydronephrosis, hx of bladder extrophy Bladder spasms and leaking improved. Continue horowitz catheter for now. Continue oxybutynin TID and B&O suppositories for pain and bladder spasms. Will continue to avoid Pyridium in the setting of ARF. Cr stable this morning. Unfortunately no improvement. Continues to have a negative fluid balance. Continue Flomax. Pt OK for [facility]. Pt to f/u with Dr. Rendon in the office later this afternoon. Suspect he may remain inpatient and will need this appt rescheduled. Will plan for to reschedule for outpatient cysto if that is the case.
[2017-03-07] MEDS: OXYBUTYNIN CHLORIDE 5 MG TAB PO SCH ×3 (08:42→20:44)
[2017-03-07] MEDS: SODIUM CHLORIDE 0.9% 1000ML 1,000 ML IV SCH ×2 (08:43→21:06)
--- NOTE | 2017-03-07 08:55 | Nephrology Progress Note ---
Nephrology Progress Note Date of Service: Mar 07, 2017. Subjective 22 yo male with patrick from hydro which is improving with horowitz catheter. Patient continues to have about 7 liters of fluid daily. states that current horowitz is working well. states that he has some nausea with food but denies any chest pain , diarrhea, SOB, or confusion. Objective Date Time Temp Pulse Resp B/P (MAP) Pulse Ox O2 Delivery O2 Flow Rate FiO2 03/06/17 23:30 Room Air 03/06/17 23:02 36.4 63 16 154/91 (112) 96 Room Air 03/06/17 15:25 36.9 56 17 142/89 (106) 96 Room Air 03/06/17 15:10 Room Air 03/06/17 11:28 53 18 138/89 (105) 96 Room Air Physical Exam: General-aaox3 Eyes-no scleral icterus ENT-mmm Neck-supple Lungs-clear Heart-bradycardia Abdomen-bs+ s/nt/nd Extremities-no c/c/e Neuro-nonfocal Current Inpatient Medications Medications (Trade) Dose Ordered Sig/Tiffany Route Start Time Stop Time Status Last Admin Dose Admin Acetaminophen (Tylenol Tab) 650 mg Q4H PRN PO 03/02/17 04:00 04/01/17 03:59 03/07/17 00:26 650 MG Ondansetron HCl (Zofran Inj) 4 mg Q6H PRN IV 03/02/17 04:00 04/01/17 03:59 03/07/17 00:25 4 MG Ceftriaxone Sodium 1 gm/ Dextrose 50 ml @ 100 mls/hr Q24H IV 03/03/17 04:00 03/12/17 03:59 03/07/17 04:11 100 MLS/HR Sodium Chloride 1,000 ml @ 75 mls/hr [id number] IV 03/02/17 04:15 04/01/17 04:14 03/07/17 08:43 75 MLS/HR Tamsulosin HCl (Flomax Cap) 0.4 mg HS PO 03/05/17 21:00 04/04/17 20:59 03/06/17 20:36 0.4 MG Belladonna/Opium (B & O Adult Supp) 60 mg Q12H PRN [place] 03/05/17 19:15 03/19/17 19:14 03/06/17 19:48 60 MG Oxybutynin Chloride (Ditropan Tab) 5 mg TID PO 03/06/17 09:00 04/05/17 08:59 03/07/17 08:42 5 MG Oxycodone HCl (Roxicodone Immediate Rel Tab) 5 mg Q4HWA PRN PO 03/06/17 12:15 03/20/17 12:14 03/07/17 08:46 5 MG Last 24 Hours Test 03/07/17 05:55 Sodium Level 142 mmol/L Potassium Level 3.7 mmol/L Chloride Level 107 mmol/L Carbon Dioxide Level 27 mmol/L Anion Gap 8.0 mmol/L Blood Urea Nitrogen 18 mg/dl Creatinine 1.94 mg/dl Est Creatinine Clear Calc Drug Dose 61.7 ml/min Estimated GFR () 55.3 Estimated GFR (Non- 47.7 BUN/Creatinine Ratio 9.5 Random Glucose 84 mg/dl Calcium Level 8.9 mg/dl Other Studies: 03/06/17 03/07/17 03/08/17 08:00 08:00 08:00 Intake Total 5628 ml 4035 ml Output Total 7575 ml 7075 ml Balance -1947 ml -3040 ml Assessment & Plan PATRICK-improving with normal saline and horowitz catheter. creatinine remains around 1.9-2.0 and patient tolerating current IV fluids. will lower IV fluids to 75cc/ hr and continue to monitor. bun is normal so is not an osmotic diuresis. This patient was seen and treated with direct collaboration with Dr. Butcher. Thank you for the opportunity to participate in this patient's care. Appreciate the Consult. ATTENDING NOTE: I performed a history and physical examination of the patient, including specifically on history- pt comfortable but still with some nausea, and my impression and plan are PATRICK from hydro and urination is slowing down somewhat, lowering iv fluids to 75 cc/hr today and will lower to 50cc/hr tomorrow. I have discussed the patient's management with Mariana Durant PA-C, Please refer to above note for the documented findings and plan of care. Jessica Butcher DO
[2017-03-07 09:09] VITALS: BP 160/113; PULSE 64; TEMP 36.3; O2SAT 97
[2017-03-07 13:50] VITALS: BP 149/113; PULSE 64; O2SAT 97
[2017-03-07 15:51] VITALS: BP 137/80; PULSE 64; TEMP 36.9; O2SAT 96
--- NOTE | 2017-03-07 17:38 | Progress Note ---
Internal Med Progress Note Date of Service: Mar 07, 2017. Provider Documentation: SUBJECTIVE: feels fine, no abdominal pain no nausea , feels mild discomfort with bladder area , as it changed to 18 F to prevent leaking around Gomez appetite fair plan is to discharge home tomorrow OBJECTIVE: Vital Signs-as noted below Exam: General-young male , no sign of distress Eyes-sclera non icteric , PERRLA/EOMI ENT-NAD Neck-no thyromegaly Lungs-CTA , no wheeze or rales Heart-regular S1/S2 Abdomen-soft, non tender Extremities-no lower ext edema , no rash Neuro-AAO x3, no focal deficit Lab data as noted below. ASSESSMENT & PLAN: URINARY RETENTION : Likely secondary to Bladder Extrophy/Neurogenic bladder/Obstructive Uropathy H/O multiple bladder surgeries for bladder exstrophy. recent ER visit with similar symptom was discharged home with abx and instruction for intermittent self cath was unable to do self cath /unable to insert Gomez presented with PATRICK Cr > 3 Renal u/s showed Severe bilateral hydroureteronephrosis, right more severe than left. appreciate input for Urology Gomez inserted with adequate drainage of urine Gomez changed to 18 F to prevent leaking UA positive for nitrite and leukocytes esterase ordered for empiric abx IV Rocephin for chronic urinary retention urine culture no growth Starting on oxybutynin and Flomax ( Pyridium avoided for PATRICK ) Continue abx for 2 weeks change to PO Ciprofloxacin out pt follow up with urology Dr Rendon PATRICK on CKD stage 3 : due to worsening of chronic urinary retention USG shows severe bilateral hydroureteronephrosis Cr:1.4 at baseline Cr on admission 3.9, improved to 1.9 continue Gomez, IV fluids Nephrology on board ; IVF decreased to 75ml/hr Avoid nephrotoxic agents will need periodic out pt lab check DVT px: SCDs Encourage to ambulate Code Status: Full Code Consultants: Urology Nephrology DISPOSITION discharge to home tomorrow Vital Signs: Date Time Temp Pulse Resp B/P (MAP) Pulse Ox O2 Delivery O2 Flow Rate FiO2 03/07/17 15:51 36.9 64 17 137/80 (99) 96 Room Air 03/07/17 15:20 Room Air 03/07/17 13:50 64 18 149/113 (125) 97 Room Air 03/07/17 09:09 36.3 64 18 160/113 (129) 97 Room Air 03/07/17 07:30 Room Air 03/06/17 23:30 Room Air 03/06/17 23:02 36.4 63 16 154/91 (112) 96 Room Air Lab Results: Results Past 24 Hours Test 03/07/17 05:55 Range/Units Sodium Level 142 136-145 mmol/L Potassium Level 3.7 3.5-5.1 mmol/L Chloride Level 107 98-107 mmol/L Carbon Dioxide Level 27 21-32 mmol/L Anion Gap 8.0 3-11 mmol/L Blood Urea Nitrogen 18 7-18 mg/dl Creatinine 1.94 0.60-1.40 mg/dl Est Creatinine Clear Calc Drug Dose 61.7 ml/min Estimated GFR () 55.3 Estimated GFR (Non- 47.7 BUN/Creatinine Ratio 9.5 10-20 Random Glucose 84 70-99 mg/dl Calcium Level 8.9 8.5-10.1 mg/dl
[2017-03-07] MEDS: CIPROFLOXACIN 250 MG TAB PO SCH (20:44)
[2017-03-07] MEDS: TAMSULOSIN HCL 0.4 MG CAP PO SCH (21:05)
[2017-03-07] MEDS ORDERED: BOAS PR (21:21)
[2017-03-07] MEDS ORDERED: CPR250 PO (21:21)
[2017-03-07] MEDS ORDERED: FLM4 PO (21:21)
[2017-03-07] MEDS ORDERED: DTR5 PO (21:21)
--- NOTE | 2017-03-07 21:23 | Discharge Instructions ---
Discharge Instructions Date of Service Mar 07, 2017. Admission Reason for Admission: ARF Discharge Discharge Diagnosis / Problem: ACUTE RENAL FAILURE /URINARY RETENTION /UTI Discharge Goals Goal(s): Decrease discomfort, Improve disease control, Diagnostic testing, Therapeutic intervention Activity Recommendations Activity Limitations: resume your previous activity . Instructions / Follow-Up Instructions / Follow-Up HOSPITAL FOLLOW UP 03/14/2017 11:00 AM Vasu Deluca MD [facility] LAB WORK : BASIC METABOLIC PANEL IN A WEEK AVOID TAKING NSAID'S -NO ADVIL , MOTRIN , IBUPROFEN , ALEVE , NAPROXEN , ASPIRIN , WILL CAUSE MORE DAMAGE TO KIDNEY UROLOGY FOLLOW UP WITH DR CHEN WITHIN A WEEK FOR CYSTOSCOPY AND LAB : BASIC METABOLIC PANEL Current Hospital Diet Patient's current hospital diet: Regular Diet Discharge Diet Recommended Diet: Regular Diet Pending Studies Studies pending at discharge: yes List of pending studies: BASIC METABOLIC PANEL IN A WEEK Medical Emergencies . Who to Call and When: Medical Emergencies: If at any time you feel your situation is an emergency, please call 911 immediately. . Non-Emergent Contact Non-Emergency issues call your: Primary Care Provider . . "Provider Documentation" section prepared by Laurie Hernandes. . VTE Core Measure Inpt VTE Proph given/why not?: Malcolm Shaffer, SCD's
[2017-03-07 23:10] VITALS: BP 145/95; PULSE 60; TEMP 36.9; O2SAT 97
[2017-03-08] MEDS: OXYCODONE HCL IR 5 MG TAB (IMMEDIATE RELEASE) PO PRN ×3 (04:31→12:20)
[2017-03-08 06:56] LABS: BUN/CREATININE RATIO 10.8 (10-20); CALCIUM 9.2 mg/dl (8.5-10.1); CREATININE 1.98 mg/dl (0.60-1.40)
[2017-03-08 07:23] VITALS: BP 129/80; PULSE 73; TEMP 36.8; O2SAT 97
--- NOTE | 2017-03-08 07:46 | Progress Note ---
Subjective Date of Service: Mar 08, 2017. Subjective Pt evaluation today including: conversation w/ patient, chart review, lab review Voiding: horowitz catheter in place (patent, draining clear, yellow urine) Pt denies leaking around catheter or bladder spasms this morning. Cr has drifted slightly to 1.98 this morning. He remains with a large negative fluid balance. Problem List Medical Problems: (1) Anemia Status: Acute (2) Renal failure Status: Acute (3) Suprapubic abdominal pain Status: Acute (4) Urinary tract infection Status: Acute Review of Systems Constitutional: No fever, No chills Respiratory: No shortness of breath Cardiac: No chest pain Abdomen: No pain, No nausea, No vomiting Male : No hematuria Heme: No abnormal bleeding/bruising Objective Vital Signs Date Time Temp Pulse Resp B/P (MAP) Pulse Ox O2 Delivery O2 Flow Rate FiO2 03/08/17 07:23 36.8 73 18 129/80 (96) 97 Room Air 03/07/17 23:30 Room Air 03/07/17 23:10 36.9 60 16 145/95 (112) 97 Room Air 03/07/17 15:51 36.9 64 17 137/80 (99) 96 Room Air 03/07/17 15:20 Room Air 03/07/17 13:50 64 18 149/113 (125) 97 Room Air 03/07/17 09:09 36.3 64 18 160/113 (129) 97 Room Air Physical Exam General Appearance: no apparent distress Eyes: normal inspection ENT: hearing grossly normal Neck: no JVD Respiratory/Chest: no respiratory distress, no accessory muscle use Cardiovascular: no JVD Extremities: normal inspection Neurologic/Psychiatric: alert, normal mood/affect, oriented x 3 Skin: normal color Laboratory Results Last 24 Hours Test 03/08/17 05:59 Sodium Level 140 mmol/L Potassium Level 4.0 mmol/L Chloride Level 106 mmol/L Carbon Dioxide Level 27 mmol/L Anion Gap 7.0 mmol/L Blood Urea Nitrogen 21 mg/dl Creatinine 1.98 mg/dl Est Creatinine Clear Calc Drug Dose 60.4 ml/min Estimated GFR () 54.0 Estimated GFR (Non- 46.6 BUN/Creatinine Ratio 10.8 Random Glucose 77 mg/dl Calcium Level 9.2 mg/dl Assessment and Plan A/P: Urinary retention, ARF, bilateral hydronephrosis, hx of bladder extrophy Bladder spasms and leaking improved. Continue horowitz catheter for now. Continue oxybutynin TID and B&O suppositories for pain and bladder spasms. Will continue to avoid Pyridium in the setting of ARF. Cr stable this morning. Unfortunately no improvement. Continues to have a negative fluid balance. Continue Flomax. Pt OK [facility] from [facility]. Will reschedule pt's f/u with Dr. Rendon to next week. Plan for cysto and repeat BMP at that time. No further management at this time. Will sign off for now. Recall PRN issues.
[2017-03-08] MEDS: CIPROFLOXACIN 250 MG TAB PO SCH (08:36)
[2017-03-08] MEDS: OXYBUTYNIN CHLORIDE 5 MG TAB PO SCH (08:37)
[2017-03-08 08:40] VITALS: BP 129/80; PULSE 73; TEMP 36.8; O2SAT 97
[2017-03-08] MEDS: SODIUM CHLORIDE 0.9% 1000ML 1,000 ML IV SCH (10:59)
[2017-03-08 11:02] VITALS: O2SAT 97
[2017-03-08 11:37] VITALS: BP 117/77; PULSE 61; TEMP 36.2; O2SAT 98
[2017-03-08] MEDS ORDERED: RXC5 PO (11:53)
--- NOTE | 2017-03-08 11:58 | Progress Note ---
Internal Med Progress Note Date of Service: Mar 08, 2017. Provider Documentation: SUBJECTIVE: offers no new complain has Gomez , draining urine no fever or chills stable to be discharged home today OBJECTIVE: Vital Signs-as noted below Exam: General-young male , no sign of distress Eyes-sclera non icteric , PERRLA/EOMI ENT-NAD Neck-no thyromegaly Lungs-CTA , no wheeze or rales Heart-regular S1/S2 Abdomen-soft, non tender Extremities-no lower ext edema , no rash Neuro-AAO x3, no focal deficit Lab data as noted below. ASSESSMENT & PLAN: URINARY RETENTION : Likely secondary to Bladder Extrophy/Neurogenic bladder/Obstructive Uropathy H/O multiple bladder surgeries for bladder exstrophy. recent ER visit with similar symptom was discharged home with abx and instruction for intermittent self cath was unable to do self cath /unable to insert Gomez presented with PATRICK Cr > 3 Renal u/s showed Severe bilateral hydroureteronephrosis, right more severe than left. appreciate input for Urology Gomez inserted with adequate drainage of urine Gomez changed to 18 F to prevent leaking UA positive for nitrite and leukocytes esterase ordered for empiric abx IV Rocephin for chronic urinary retention urine culture no growth Starting on oxybutynin and Flomax ( Pyridium avoided for PATRICK ) Continue abx for 2 weeks change to PO Ciprofloxacin out pt follow up with urology Dr Rendon stable to be discharged home today PATRICK on CKD stage 3 : due to worsening of chronic urinary retention USG shows severe bilateral hydroureteronephrosis Cr:1.4 at baseline Cr on admission 3.9, improved to 1.9 -remains stable Nephrology on board ; Avoid nephrotoxic agents discharge home today pt is asked to avoid NSAID's BMP to be checked in a week DVT px: SCDs Encourage to ambulate Code Status: Full Code Consultants: Urology Nephrology DISPOSITION discharge to home today Vital Signs: Date Time Temp Pulse Resp B/P (MAP) Pulse Ox O2 Delivery O2 Flow Rate FiO2 03/08/17 11:37 36.2 61 16 117/77 (90) 98 Room Air 03/08/17 11:02 97 Room Air 03/08/17 08:40 36.8 73 18 97 Room Air 03/08/17 07:35 Room Air 03/08/17 07:23 36.8 73 18 129/80 (96) 97 Room Air 03/07/17 23:30 Room Air 03/07/17 23:10 36.9 60 16 145/95 (112) 97 Room Air 03/07/17 15:51 36.9 64 17 137/80 (99) 96 Room Air 03/07/17 15:20 Room Air 03/07/17 13:50 64 18 149/113 (125) 97 Room Air Lab Results: Results Past 24 Hours Test 03/08/17 05:59 Range/Units Sodium Level 140 136-145 mmol/L Potassium Level 4.0 3.5-5.1 mmol/L Chloride Level 106 98-107 mmol/L Carbon Dioxide Level 27 21-32 mmol/L Anion Gap 7.0 3-11 mmol/L Blood Urea Nitrogen 21 7-18 mg/dl Creatinine 1.98 0.60-1.40 mg/dl Est Creatinine Clear Calc Drug Dose 60.4 ml/min Estimated GFR () 54.0 Estimated GFR (Non- 46.6 BUN/Creatinine Ratio 10.8 10-20 Random Glucose 77 70-99 mg/dl Calcium Level 9.2 8.5-10.1 mg/dl
--- NOTE | 2017-03-08 11:59 | Discharge Summary ---
Discharge Summary Date of Service Mar 08, 2017. Discharge Summary Admission Date: Mar 02, 2017 at 04:05 Discharge Date: Mar 08, 2017 Discharge Disposition: Home Principal Diagnosis: ACUTE RENAL FAILURE /URINARY RETENTION /UTI Procedures: RENAL ULTRASOUND CLINICAL HISTORY: Acute kidney injury. COMPARISON STUDY: CT of the abdomen and pelvis February 14, 2017. TECHNIQUE: Sonography of the kidneys and the urinary bladder was performed. FINDINGS: The right kidney measures 14.5 x 5.6 x 5.8 cm and the left measures 11.9 x 7.3 x 6.9 cm. Severe bilateral hydroureteronephrosis, right greater than left, is again noted. Marked right renal cortical thinning is noted. Findings are similar to exam of February 14, 2017 when allowing for differences in technique. Neither ureteral jet was identified. The bladder was decompressed. Moderate to marked bladder wall thickening was noted. A Gomez catheter was noted. IMPRESSION: 1. Severe bilateral hydroureteronephrosis, right more severe than left. No significant change since CT of February 14, 2017 when allowing for differences in technique. 2. Marked right renal cortical thinning. 3. Moderate to marked bladder wall thickening accentuated by underdistention. Consultations: Urology Nephrology Medication Reconciliation New Medications: Belladonna/Opium (Belladonna Alkaloids & Op 16.2-60 mg) 60 Mg Supp 60 MG MI Q12H PRN for Pain for 14 Days, #28 SUPP Ciprofloxacin (Ciprofloxacin HCl) 250 Mg Tab 250 MG PO Q12 for 10 Days, #20 TAB Oxybutynin Chloride (Oxybutynin Chloride) 5 Mg Tab 5 MG PO TID for 30 Days, #90 TAB Oxycodone HCl (Oxycodone HCl) 5 Mg Tab 5 MG PO Q8 PRN for Pain, #10 TAB Tamsulosin HCl (Tamsulosin HCl) 0.4 Mg Cap 0.4 MG PO HS for 30 Days, #30 CAP Discontinued Medications: Phenazopyridine HCl (Pyridium) 200 Mg Tab 200 MG PO TID, #6 TAB Referrals At Discharge Follow up Referrals: Urologist Referral - Please Call For Appointment with Gerard Chen MD, Urology Admission Information HPI (per Admitting provider): Patient is a 22 yr male with PMH of Exstrophy of bladder S/P surgery, last surgery was in 2013 at [place], b/l hydronephrosis, recurrent UTIs, Neurogenic bladder, Nephrolithiasis and Tobacco use who was recently discharged from [facility] after being treated for obstructive Uropathy and PATRICK presents with history of lower abdominal pain, dysuria, bladder spasms and urinary retention. Patient usually straight caths 2-3 times a day but since about a week he states having difficulty to do the same. He is able to void some urine but states was not able to completely empty the bladder. He follows with and has an appointment on . Patient reports having dysuria, chills and bladder spasms associated with lower abdominal pain which is intermittent and pressure like sensation, non radiating. Patient visited his PCP and was started on Pyridium for bladder spasms. Patient completed antibiotic course after recent hospitalization and reports diarrhea since about a week. Denies any history of fever, hematuria, chest pain, SOB, nausea, vomiting, blood in stools, dizziness , headache, cough, wheezing or any other relevant history. Patient states abdominal pain is much improved after catheterization in ED. Physical Exam (per Admitting): General Appearance: WD/WN, no apparent distress Head: normocephalic, atraumatic Eyes: normal inspection, PERRL, EOMI, sclerae normal ENT: normal ENT inspection, hearing grossly normal Neck: supple, no JVD, trachea midline Respiratory/Chest: chest non-tender, lungs clear, normal breath sounds, no respiratory distress, no accessory muscle use Cardiovascular: regular rate, rhythm, no edema, no murmur Abdomen/GI: normal bowel sounds, soft, + tenderness (Suprapubic region ) Back: normal inspection Extremities/Musculoskelatal: normal inspection, no pedal edema Neurologic/Psych: 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 recent ER visit with similar symptom was discharged home with abx and instruction for intermittent self cath was unable to do self cath /unable to insert Gomez presented with PATRICK Cr > 3 Renal u/s showed Severe bilateral hydroureteronephrosis, right more severe than left. appreciate input for Urology Gomez inserted with adequate drainage of urine Gomez changed to 18 F to prevent leaking UA positive for nitrite and leukocytes esterase ordered for empiric abx IV Rocephin for chronic urinary retention urine culture no growth Starting on oxybutynin and Flomax ( Pyridium avoided for PATRICK ) Continue abx for 2 weeks change to PO Ciprofloxacin out pt follow up with urology Dr Chen stable to be discharged home today PATRICK on CKD stage 3 : due to worsening of chronic urinary retention USG shows severe bilateral hydroureteronephrosis Cr:1.4 at baseline Cr on admission 3.9, improved to 1.9 -remains stable Nephrology on board ; Avoid nephrotoxic agents discharge home today pt is asked to avoid NSAID's BMP to be checked in a week DVT px: SCDs Encourage to ambulate Code Status: Full Code Consultants: Urology Nephrology DISPOSITION discharge to home today Total time spent on discharge = 35 mins This includes examination of the patient, discharge planning, medication reconciliation, and communication with other providers. Discharge Instructions Discharge Instructions Date of Service Mar 07, 2017. Admission Reason for Admission: ARF Discharge Discharge Diagnosis / Problem: ACUTE RENAL FAILURE /URINARY RETENTION /UTI Discharge Goals Goal(s): Decrease discomfort, Improve disease control, Diagnostic testing, Therapeutic intervention Activity Recommendations Activity Limitations: resume your previous activity . Instructions / Follow-Up Instructions / Follow-Up HOSPITAL FOLLOW UP 03/14/2017 11:00 AM Vasu Deluca MD [facility] LAB WORK : BASIC METABOLIC PANEL IN A WEEK AVOID TAKING NSAID'S -NO ADVIL , MOTRIN , IBUPROFEN , ALEVE , NAPROXEN , ASPIRIN , WILL CAUSE MORE DAMAGE TO KIDNEY UROLOGY FOLLOW UP WITH DR CHEN WITHIN A WEEK FOR CYSTOSCOPY AND LAB : BASIC METABOLIC PANEL Current Hospital Diet Patient's current hospital diet: Regular Diet Discharge Diet Recommended Diet: Regular Diet Pending Studies Studies pending at discharge: yes List of pending studies: BASIC METABOLIC PANEL IN A WEEK Medical Emergencies . Who to Call and When: Medical Emergencies: If at any time you feel your situation is an emergency, please call 911 immediately. . Non-Emergent Contact Non-Emergency issues call your: Primary Care Provider . . "Provider Documentation" section prepared by Laurie Hernandes. . VTE Core Measure Inpt VTE Proph given/why not?: Malcolm Shaffer, SCD's Additional Copies To Gallito Alston M.D. (MEDICAL) Gerard Chen MD, Urology
== END 2017-03-08 12:40 | disposition home or self-care (01) | DRG 684 ==
LOC: C.EDB 01:56 → C.MSW 04:05 → ENRESERV 04:17
PROVIDERS: ADMIT Internal Medicine; ATTEND Hospitalist
DX: N17.9 Acute kidney failure, unspecified (principal); N13.39 Other hydronephrosis; N31.9 Neuromuscular dysfunction of bladder, unspecified; F17.200 Nicotine dependence, unspecified, uncomplicated; D64.9 Anemia, unspecified; N18.3 Chronic kidney disease, stage 3 (moderate); Z87.442 Personal history of urinary calculi; Z87.718 Personal history of other specified (corrected) congenital malformations of genitourinary system

== ENCOUNTER → 2017-04-18 | Outpatient (CLI) | payer OTHER ==
[~2017-04-18] MED LIST changes: -CPR500 PO; +OXYB5TAB PO; +OXYC1CAP5 PO; +TAMS0.4C38 PO; -ULT50X PO
[2017-04-18 13:41] LABS: URINE APPEARANCE CLOUDY (CLEAR); URINE BILIRUBIN NEG (NEG); URINE COLOR YELLOW; URINE NITRITE NEG (NEG); URINE SPECIFIC GRAVITY 1.016 (1.000-1.030); UROBILINOGEN NEG (NEG)
[2017-04-18 13:48] LABS: MANUAL MICROSCOPIC REQUIRED? NO; REVIEW REQ? NO
[2017-04-18 13:55] LABS: BLOOD UREA NITROGEN 27 mg/dl (7-18); BUN/CREATININE RATIO 23.3 (10-20); CALCIUM 9.5 mg/dl (8.5-10.1); CARBON DIOXIDE 24 mmol/L (21-32); CHLORIDE 106 mmol/L (98-107); CREATININE 1.14 mg/dl (0.60-1.40); GLUCOSE 86 mg/dl (70-99); PHOSPHORUS 2.2 mg/dl (2.5-4.9); SODIUM 135 mmol/L (136-145)
[2017-04-18 14:14] LABS: CREATININE, URINE 53.4 mg/dl; URINE PROTIEN/CREAT RATIO 0.2 (0-0.2); URINE TOTAL PROTEIN 9.4 mg/dl (0-11.9)
== END | disposition home or self-care (01) ==
LOC: C.LAB1850 11:55
PROVIDERS: ATTEND Internal Medicine Nephrology
DX: N17.9 Acute kidney failure, unspecified (principal)

== ENCOUNTER 2017-06-09 15:02 | Emergency (ER) | payer SELFPAY ==
[~2017-06-09] VITALS: Ht 180.3 cm; Wt 80.3 kg
[2017-06-09 15:05] VITALS: TEMP 36.8; Ht 180.3 cm; Wt 80.3 kg
[2017-06-09] MEDS ORDERED: ACET-1256 PO (15:21)
[2017-06-09] MEDS ORDERED: PHEN95TA14 PO (15:21)
[2017-06-09] MEDS ORDERED: CEFTRIAXONE SOD INJ 1 GM in DEXTROSE 5% ADD-VANTAGE 50ML 50 ML IV STA (16:32)
--- NOTE | 2017-06-09 16:53 | EMERGENCY ROOM VISIT NOTE ---
History First contact with patient: 15:22 Chief Complaint: URINARY SYMPTOMS Stated Complaint: FLU LIKE SX, UTI History of Present Illness 22M with a PMHx of bladder extrophy, b/l hydronephrosis, recurrent UTIs, Neurogenic bladder, Nephrolithiasis and Tobacco use who presents to the Emergency Room with complaints of dysuria and increased urinary frequency. He has a chronic inability to void and self catheterizes approx once a day to get his bladder empty. The patient presents today with what he self describes as a UTI. He has had multiple UTIs in the past and this feels like a classic UTI. He also has bilateral flank pain and intermittent fevers. When asked if he could be having a kidney infection that patient stated that he might be. He typically sees Dr. Rendon for his urology issues. ROS: intermittent fevers x 2 weeks, no chest pain, no SOB, no cough, no rash, no swelling in the hands or feet. 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 Review of Systems See HPI for pertinent positives and negatives. A total of ten systems were reviewed and were otherwise negative. Past Medical/Surgical History Medical Problems: (1) ARF (acute renal failure) (2) Bladder extrophy (3) Urinary retention with incomplete bladder emptying (4) UTI (urinary tract infection) Surgical Problems: (1) H/O nephrostomy (2) S/P appendectomy Family History Patient reports no known family medical history. Social History Smoking Status: Current Every Day Smoker Alcohol Use: occasionally Drug Use: marijuana Marital Status: single Housing Status: lives with roommate Occupation Status: employed Current/Historical Medications Scheduled Amoxicillin & Pot Clavulanate (Augmentin 875-125 mg), 1 TAB PO BID Scheduled PRN Acetaminophen (Tylenol), 1,000 MG PO DIRECTED PRN for Pain or Fever Phenazopyridine Hcl (Azo Tabs), 2 TABS PO TID PRN for URINARY PAIN Physical Exam Vital Signs Date Time Temp Pulse Resp B/P (MAP) Pulse Ox O2 Delivery O2 Flow Rate FiO2 06/09/17 15:05 36.8 115 20 123/71 98 Room Air Physical Exam Gen: No acute distress. HEENT: Head - normocephalic and atraumatic. Pupils are equal, round, and reactive to light. Extraocular eye muscles are intact and sclera are anicteric. Ears - bilaterally patent canals with noninjected tympanic membranes and no evidence of hemotympanum. Nose - moist nasal mucosa without discharge. Mouth - moist buccal mucosa. Oropharynx is nonerythematous and there is no tonsillar exudate or edema noted. Neck: Supple; no JVD, nuchal rigidity, cervical lymphadenopathy, or auscultated bruits. Heart: Regular rate and rhythm. There is a normal S1 and S2 with no murmurs, clicks, or gallops appreciated. Lungs: Clear to auscultation bilaterally with no wheezes, rales, or rhonchi. Abdomen: Soft, completely nontender, nondistended, with good bowel sounds. There are no palpable pulsatile masses or hepatosplenomegaly. There is no guarding, rigidity, or rebound noted. No CVA tenderness. MSK: FROM of the trunk without pain or tenderness. Extremities: No evidence of cyanosis, clubbing, or edema. There are easily palpable peripheral pulses. Neuro:The patient is awake and alert, oriented to day, time, and place. Muscle strength is 5/5 in all 4 extremities. 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 There are no cerebellar signs. Medical Decision & Procedures Laboratory Results 06/09/17 16:46 Test 06/09/17 15:50 06/09/17 16:46 Urine Color DK YELLOW Urine Appearance TURBID (CLEAR) Urine pH 6.5 (4.5-7.5) Urine Specific [place] 1.014 (1.000-1.030) Urine Protein 2+ (NEG) Urine Glucose (UA) NEG (NEG) Urine Ketones NEG (NEG) Urine Occult Blood 3+ (NEG) Urine Nitrite POS (NEG) Urine Bilirubin NEG (NEG) Urine Urobilinogen NEG (NEG) Urine Leukocyte Esterase LARGE (NEG) Urine WBC (Auto) >30 /hpf (0-5) Urine RBC (Auto) >30 /hpf (0-4) Urine Hyaline Casts (Auto) 0 /lpf (0-5) Urine Epithelial Cells (Auto) 5-10 /lpf (0-5) Urine Bacteria (Auto) 3+ (NEG) Urine Yeast (Auto) (NONE PRSENT) Red Blood Count 5.00 M/uL (4.7-6.1) Mean Corpuscular Volume 82.4 fL (80-100) Mean Corpuscular Hemoglobin 28.6 pg (25-34) Mean Corpuscular Hemoglobin Concent 34.7 g/dl (32-36) RDW Standard Deviation 39.0 fL (36.4-46.3) RDW Coefficient of Variation 12.9 % (11.5-14.5) Mean Platelet Volume 9.6 fL (7.4-10.4) Medical Decision The patient's care and disposition was discussed with Dr. Gordon, Attending ED Physician. This is a 22M with Dysuria and increased urinary frequency. Differential diagnosis include UTI, pyelonephritis, urethritis, epididymitis, kidney stones and blepharitis. Triage Nursing notes were reviewed. ED Course included an extensive history and physical exam and labs. 1530 - Pt was examined by resident. 1545 - Case discussed with Dr. Gordon and UA was ordered. 1630 - 1g of Rocephin was administered. 1715 - Labs were reviewed and findings discussed with patient. Prior records were reviewed [place] [facility] [place] no recent urine cultures are available to base sensitivity decisions on. Patient will be discharged on a 9 day course of Augmentin for a total 10 day course for complicated UTI. The pt was informed about the findings as listed above. All questions were answered. Return instructions were outlined and the patient was discharged in good condition. The patient was referred to PCP for recheck of the current condition. Impression Primary Impression: Urinary tract infection Departure Information Dispostion Home / Self-Care Condition GOOD Prescriptions Amoxicillin & Pot Clavulanate (Augmentin 875-125 mg) 1 Tab Tab 1 TAB PO BID for 9 Days, #19 TAB Prov: Vasu Carmona M.D. 06/09/17 Referrals Gallito Alston M.D. (MEDICAL) (PCP) Patient Instructions Amoxicillin Clavulanic Acid tablets, [facility], UTI Additional Instructions We have found that you have a urinary tract infection. You were given a dose of an IV Antibiotic in the ER. You are being discharged on Augmentin. Please take 1 tablet every 12 hours as prescribed. Augmentin can also cause diarrhea. You should take a probiotic (yogurt, drink or tablet) while you are taking Augmentin. Discharge information regarding UTIs and Augmentin will be printed for you on discharge. Please read this information carefully. Return to the ER if you experience high grade fevers with no improvement in your symptoms. Please follow up with your PCP within 1 week. Resident Involvement: Resident Care Provided Care Provided: Adult ED
[2017-06-09] MEDS ORDERED: AMOX875T PO (16:54)
[2017-06-09 16:55] LABS: HEMATOCRIT 41.2 % (42-52); HEMOGLOBIN 14.3 g/dL (14.0-18.0); MEAN CELL VOLUME 82.4 fL (80-100); MEAN CORPUSCULAR HEMOGLOBIN 28.6 pg (25-34); MEAN CORPUSCULAR HGB CONC 34.7 g/dl (32-36); MEAN PLATELET VOLUME 9.6 fL (7.4-10.4); PLATELET COUNT 184 K/uL (130-400); RED CELL DISTRIBUTION WIDTH CV 12.9 % (11.5-14.5); WHITE BLOOD COUNT 6.42 K/uL (4.8-10.8)
[2017-06-09 17:12] LABS: CALCIUM 9.4 mg/dl (8.5-10.1); CREATININE 1.07 mg/dl (0.60-1.40); POTASSIUM 3.6 mmol/L (3.5-5.1)
--- NOTE | 2017-06-09 17:19 | EMERGENCY ROOM VISIT NOTE ---
ED Visit Note First contact with patient: 15:10 I have personally evaluated this patient examined her and reviewed the pertinent labs and data. I have discussed the case with Vasu, the resident physician and agree with the plan. Please refer to the PA note. This patient comes in with urinary symptoms he does have a history of congenital urologic issues and does self cath himself. Because he had flulike symptoms he did not cath himself this week and appears to develop an infection. He is afebrile here has a normal white count . He has normal kidney function. He appears well hydrated. On my exam he has no flank tenderness suggest Pyelonephrits. We have given him some IV antibiotics and send him home with by mouth antibiotics as well. He does have chronic hydronephrosis on previous imaging. He is happy with the plan and will follow-up with his doctor this week return if fever or chills increasing pain any new problems or concerns.
[2017-06-09] MEDS ORDERED: OXYC1TAB3 PO (17:27)
[2017-06-09] MEDS ORDERED: OXYCODONE IR HOME PACK PO ONE (17:30)
[2017-06-09 18:10] VITALS: BP 133/85; PULSE 88; O2SAT 97
== END 2017-06-09 18:18 | disposition home or self-care (01) ==
LOC: C.EDB 15:03 → C.EDC 18:18
DX: N39.0 Urinary tract infection, site not specified (principal); F17.210 Nicotine dependence, cigarettes, uncomplicated; N50.9 Disorder of male genital organs, unspecified

== ENCOUNTER → 2017-09-08 | Outpatient (CLI) | payer OTHER ==
[~2017-09-08] MED LIST changes: +ACET-1256 PO; -OXYB5TAB PO; -OXYC1CAP5 PO; +OXYC1TAB3 PO; +PHEN95TA14 PO; -TAMS0.4C38 PO
== END | disposition home or self-care (01) ==
LOC: C.LAB 04:26
DX: Z02.83 Encounter for blood-alcohol and blood-drug test (principal)

== ENCOUNTER 2017-12-30 11:04 | Emergency (ER) | payer SELFPAY ==
[~2017-12-30] VITALS: Ht 175.3 cm; Wt 78.0 kg
[~2017-12-30 11:04] MED LIST changes: -OXYC1TAB3 PO
[2017-12-30 11:11] VITALS: TEMP 36.8; Ht 175.3 cm; Wt 78.0 kg
--- NOTE | 2017-12-30 11:58 | DIAGNOSTIC IMAGING REPORT ---
R ANKLE MIN 3 VIEWS ROUTINE CLINICAL HISTORY: Right ankle and foot pain following injury. COMPARISON: None FINDINGS: Alignment of the right ankle is anatomic. Talar dome is intact. Moderate lateral ankle soft tissue swelling is noted. No acute fracture is identified within the right ankle. A displaced fracture within the base of the right fifth metatarsal is better depicted on the right foot radiographs. IMPRESSION: 1. No acute fracture or dislocation within the right ankle. 2. Acute displaced fracture of the base of the right fifth metatarsal which is better depicted on the right foot radiographs. 3. Moderate lateral ankle soft tissue swelling. Electronically signed by: Otis Yip M.D. 12/30/2017 11:57 AM Dictated Date/Time: 12/30/2017 11:55 AM
--- NOTE | 2017-12-30 12:00 | DIAGNOSTIC IMAGING REPORT ---
R FOOT MIN 3 VIEWS ROUTINE CLINICAL HISTORY: Injured playing [employer]. COMPARISON: None FINDINGS: Note is made of an acute mildly displaced fracture within the base of the right fifth metatarsal with intra-articular extension. Alignment of the tarsometatarsal joints is anatomic. No additional acute fracture is identified. IMPRESSION: Acute displaced fracture of the base of the right fifth metatarsal with intra-articular extension. Electronically signed by: Otis Yip M.D. 12/30/2017 11:58 AM Dictated Date/Time: 12/30/2017 11:57 AM
[2017-12-30] MEDS ORDERED: OXYC-737 PO (12:32)
[2017-12-30 13:07] VITALS: BP 127/80; PULSE 68; O2SAT 99
--- NOTE | 2017-12-31 06:44 | EMERGENCY ROOM VISIT NOTE ---
ED Visit Note First contact with patient: 11:17 Chief Complaint: Right ankle and foot pain. History of Present Illness: Mr. Arrington is a 22-year-old white male who ambulates into the ED complaining of lateral right ankle and foot pain. Patient reports yesterday he was pain jennifer. He reports he jumped in the air to hit the birdie and when he came down he landed on the lateral aspect of his foot and rolled his ankle. He reports at this time he felt 3 popping sensations. He reports he was able to walk home yesterday with moderate pain but when he awoke this morning he was not able to bear weight. Currently he is complaining of pain over the lateral aspect of the right ankle and the right foot. His ankle pain is located throughout the lateral ankle including all the ligamentous structures surrounding the malleolus and over the malleolus and his foot pain is located over the fourth and fifth metatarsals. Currently he describes his pain as throbbing which becomes sharp at weightbearing/ambulation. He rates his discomfort 8/10. He denies radiation of the pain. In addition to weightbearing and ambulation patient has pain with all movements of the ankle. He has not identified any alleviating factors related to the pain. He reports last evening he took 1 dose of ibuprofen without relief of his discomfort. He denies any associated symptoms including hip pain, knee pain, lower leg pain, toe pain, foot weakness/numbness/tingling. He denies any previous significant injuries or surgeries to the right ankle or foot. Review of Systems: As noted above in history of present illness. Past Medical History: (1) ARF (acute renal failure) (2) Bladder extrophy (3) Urinary retention with incomplete bladder emptying (4) UTI (urinary tract infection) Surgical Problems: (1) H/O nephrostomy (2) S/P appendectomy Current Medications: Patient denies. Allergies to Medications: Patient denies. 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 Physical Examination: Vital Signs: Date Time Temp Pulse Resp B/P (MAP) Pulse Ox O2 Delivery O2 Flow Rate FiO2 12/30/17 13:07 68 19 127/80 99 12/30/17 11:11 36.8 119 18 133/79 98 Room Air GENERAL: 22-year-old male in mild distress due to pain, nontoxic-appearing, afebrile and hemodynamically stable. NEUROLOGICAL: Awake, alert and oriented to person, place and time. Answering questions appropriately and following commands. SKIN: Warm, dry and pink. No soft tissue trauma noted. RIGHT LOWER EXTREMITY: No gross bony deformity. No shortening or malrotation of the extremity. No tenderness in the hip, knee, lower leg. Moderate tenderness with swelling and early ecchymosis over the lateral malleolus anterior, inferior ligamentous structures. No bony deformity or crepitus at the ankle. No laxity of the ligamentous structures surrounding the ankle. No tenderness over the medial aspect of the ankle. There is also moderate tenderness, swelling and ecchymosis over the fourth and fifth metatarsals without bony deformity or crepitus. Distal pulses, sensations and capillary refill are intact and equal bilaterally. ED Course: Patient is assessed as noted above. Patient's medication list was reviewed. Patient was given ice for pain and comfort; he refused pain medications. Right Ankle X-Rays: Were read by myself and the radiologist showing no acute fractures or dislocations of the ankle. Moderate lateral ankle swelling was noted. Right Foot X-Rays: Were read by myself and the radiologist shows an acute displaced fracture of the base of the fifth metatarsal with intra-articular extension. Patient was placed in a postop shoe and on nonweightbearing crutches. Patient was educated about today's findings and instructed on his treatment plan ; he verbalized understanding and agreement with this plan. Clinical Impression: Displaced right fifth metatarsal fracture. Decision-Making: Initially my differential diagnosis I considered ankle fracture , metatarsal fracture, ankle sprain, contusion and other causes. Disposition: Patient discharged home in stable condition; prior to departure he was reassessed and subjectively reported he was feeling slightly better and rated his discomfort 7/10. Plan: Comfort measures were discussed with the patient including rest, splint and crutch use, ice, foot elevation and a sliding pain medication scale of acetaminophen and OxyIR; his name was checked on the state database and no red flags were noted and he was given appropriate narcotic precautions. Patient was encouraged to follow-up with banking specialist for definitive care and treatment. Patient was encouraged return the ED for worsening/uncontrolled pain, uncontrolled swelling, foot weakness/numbness/tingling or any new/concerning symptoms.
== END 2017-12-30 13:09 | disposition home or self-care (01) ==
LOC: C.EDB 11:06 → C.EDD 13:09
DX: S92.351A Displaced fracture of fifth metatarsal bone, right foot, initial encounter for closed fracture (principal); X50.1XXA Overexertion from prolonged static or awkward postures, initial encounter; Y93.69 Activity, other involving other sports and athletics played as a team or group; Z72.0 Tobacco use

== ENCOUNTER 2020-03-11 22:06 | Inpatient (IN) ==
--- OUTSIDE RECORDS SUMMARY | 2020-03-11 22:09 | External Medical Summary | Continuity of Care Document ---
:1995 Author Name Marcia Sandoval, Provider Address Unavailable Unavailable , Care Team Providers Name Role Phone Unavailable Unavailable Unavailable Nedra Valente Unavailable [email or web address] Beatrice Sandoval, Jazzy Unavailable [email or web address] NOBLE Unavailable Unavailable Unavailable Unavailable Unavailable Problems Bladder extrophy (753.5) (Q64.10) Hydronephrosis (591) (N13.30) Incomplete emptying of bladder (788.21) (R33.9) Neurogenic bladder (596.54) (N31.9) Nephrolithiasis (592.0) (N20.0) Acute on chronic renal failure (584.9) (N17.9) Urinary retention (788.20) (R33.9) Penile pain (607.9) (N48.89) Allergies and Adverse Reactions No Known Drug Allergies (Allergy) Medications Tamsulosin HCl - 0.4 MG Oral Capsule; TAKE 1 CAPSULE B edtime ADWOA Navarro Start: 10-Apr-2017 Quantity: 30 Refills: 6 Lidocaine HCl 2 % GEL; APPLY DIRECTED. ADWOA Navarro Start: 16-Mar-2017 Quantity: 100 Refills: 1 Oxybutynin Chloride 5 MG Oral Tablet; TA KE 1 TABLET 3 TIMES DAILY PRN for bladder spasms or pain ADWOA Navarro Quantity: 30 Refills: 2 Losartan Potassium 25 MG Oral Tablet; TAKE 1 TABLET DA GERA DIRECTED. oLri Barron Start: 18-Apr-2017 Quantity: 30 Refills: 5 Procedures Procedures not documented Immunizations Immunizations not documented Social History - Smoking Status Smokes tobacco daily Plan of Treatment Planned Observations Planned Goals not documented Results No Known Results Results not documented
--- OUTSIDE RECORDS SUMMARY | 2020-03-11 22:09 | External Medical Summary | Continuity of Care Document ---
:1995 Author Name Marcia Sandoval, Provider Address Unavailable Unavailable , Care Team Providers Name Role Phone Unavailable Unavailable Unavailable Nedra Valente Unavailable [email or web address] Beatrice Sandoval, Jazzy Unavailable [email or web address] HEIDI NOBLE Unavailable Unavailable Unavailable Unavailable Unavailable Problems Penile pain (607.9) (N48.89) Urinary retention (788.20) (R33.9) Acute on chronic renal failure (584.9) (N17.9) Nephrolithiasis (592.0) (N20.0) Neurogenic bladder (596.54) (N31.9) Incomplete emptying of bladder (788.21) (R33.9) Hydronephrosis (591) (N13.30) Bladder extrophy (753.5) (Q64.10) Allergies and Adverse Reactions No Known Drug Allergies (Allergy) Medications Lidocaine HCl 2 % GEL; APPLY DIRECTED. ADWOA Navarro Start: 16-Mar-2017 Quantity: 100 Refills: 1 Oxybutynin Chloride 5 MG Oral Tablet; TA KE 1 TABLET 3 TIMES DAILY PRN for bladder spasms or pain ADWOA Navarro Quantity: 30 Refills: 2 Tamsulosin HCl - 0.4 MG Oral Capsule; TAKE 1 CAPSULE B edtime ADWOA Navarro Start: 10-Apr-2017 Quantity: 30 Refills: 6 Losartan Potassium 25 MG Oral Tablet; TAKE 1 TABLET DA GERA DIRECTED. Lori Barron Start: 18-Apr-2017 Quantity: 30 Refills: 5 Procedures Procedures not documented Immunizations Immunizations not documented Social History - Smoking Status Smokes tobacco daily Plan of Treatment Planned Observations Planned Goals not documented Results No Known Results Results not documented
--- NOTE | 2020-03-11 22:22 | Emergency Department Note ---
Impression & Plan ARF (acute renal failure), UTI (urinary tract infection) ED Provider Note NAME: MARGARET CRAWFORD AGE: 25 SEX: M : 1995 ARRIVES VIA: Walk-In INFORMANT: Patient, ED PROVIDER(S): Douglas Ely MD Chief Complaint: Difficulty with urination HPI: Patient with prior history of bladder exstrophy, bilateral hydronephrosis and recurrent UTIs with associated neurogenic bladder does present with concern for inability to fully empty his bladder. Patient does have chronic difficulty with voiding and does self catheterize. The patient has not had catheters to self catheterize for approximate 1 year due to insurance issues. The patient states that he is currently on Bactrim and he thought that this was improving over the last 4 days but he has had increasing suprapubic discomfort pressure and difficulty with urinating. Patient has had chills but denies fevers. Patient denies any blood in the urine or trauma. The patient has had some nausea but without vomiting. Patient denies cough, chest pains, or shortness of breath. ROS: See HPI for pertinent positives and negatives. A total of 10 systems were rev iewed and otherwise negative. Past medical history: See below Surgical history: See below Social history: See below Physical Exam: GENERAL: Wearing glasses and a mask. NAD, non-toxic. EYE EXAM: Normal conjunctiva. PERRL, no anisocoria and EOM's grossly intact w/o pain. NECK: Supple, no nuchal rigidity, no adenopathy, non-tender. No signs of meningismus. LUNGS: Clear to auscultation. Normal chest wall mechanics. HEART: Tachycardic and regular, no MRG. ABDOMEN: Suprapubic and lower abdominal pain and associated fullness. Normo- active bowel sounds, no masses, no rebound or guarding. BACK: No CVA TTP. SKIN: No rashes and no bruising. UPPER EXTREMITIES: Upper extremities are grossly normal. LOWER EXTREMITIES: Grossly normal, no edema. NEURO EXAM: A&O x3, cranial nerves II-XII grossly intact, normal speech, moves all 4 extremities on command w/o issue. Differential diagnoses: Appendicitis, testicular torsion, infections, diverticulitis, UTI, obstruction, mesenteric ischemia, aortic pathology, inflammatory bowel disease, renal colic, PUD, pancreatitis, biliary pathology, hernia, volvulus, constipation, as well as other pathologies. Course: Patient was seen and evaluated the bedside. Full history physical exam was performed. EKG: None Imaging Studies: None Cardiac monitoring: An order was placed for continuous cardiac monitoring. The monitor shows a rate of 88 with sinus rhythm. MDM: Did present with concern for inability to urinate. The patient did have suprapubic fullness so bladder scan was performed which did show likely urinary retention. Gomez catheter was placed and the patient did have 1500 cc of output. Blood work was obtained. I did review in our system for her cultures but there were none present. Patient was ordered cefepime. Patient's work shows a normal white counts with mild anemia. Platelet count is unremarkable. The patient's kidney function is significant for acute renal failure. Given the patient did have 1500 cc of output believe this is likely obstructive uropathy secondary to his chronic difficulty with emptying the bladder. Patient's lipase and LFTs unremarkable. The patient did have significant improvement in his sym ptoms after Gomez catheter was placed here. Given this I did speak with the on- call hospitalist and the patient was admitted to Dr. Pizano. Of note Dr. Rider was able to review his [facility] records which show that the patient did have prior urine cultures that grew out Enterococcus and thus Zo syn was ordered. Past Med/Surg History Medical History Bladder extrophy Urinary retention with incomplete bladder emptying Surgical History H/O nephrostomy S/P appendectomy Social History Smoking Status: Never smoker Preferred Language: Yemeni Feels Safe at Home: Yes Allergies Allergies Allergy/AdvReac Type Severity Reaction Status Date / Time No Known Allergies Allergy Verified 12/30/17 11:25 Home Meds Home Medications Medication Instructions Recorded Confirmed No Known Home Medications 03/11/20 03/11/20 Results & Data (ED) Vital Signs Vital Signs - 24 hr 03/11/20 22:09 03/11/20 23:13 Temperature 37.1 C Temperature Source Oral Pulse Rate 113 H Pulse Rate [Finger] 88 Pulse Rhythm Regular Pulse Strength Normal Respiratory Rate 22 18 Respiratory Effort / Characteristics Non-Labored Non-Labored Spontaneous Respiratory Depth Normal Normal Respiratory Pattern Regular Blood Pressure 150/93 H Blood Pressure [Right Arm] 135/83 Blood Pressure Mean 112 Blood Pressure Mean [Right Arm] 100 Blood Pressure Position Sitting Pulse Oximetry 97 99 Oxygen Delivery Method Room Air Room Air Sepsis Recent Fever Within 48 Hours No Sepsis New/Unexplained Change in Mental Status N/A Sepsis Action Taken by Nursing No Action Required Home Medications Current Medication List: was personally reviewed by me Laboratory Data Attestation: I reviewed the patient's lab results. Result diagrams: 03/11/20 22:36 03/11/20 22:36 Lab Results 03/11/20 03/11/20 03/11/20 Range/Units 22:36 22:36 22:58 WBC 9.91 (4.8-10.8) K/uL RBC 4.49 L (4.7-6.1) M/uL Hgb 11.3 L (14.0-18.0) g/dL Hct 35.5 L (42-52) % MCV 79.1 L (80-100) fL MCH 25.2 (25-34) pg MCHC 31.8 L (32-36) g/dL RDW Std Deviation 45.0 (36.4-46.3) fL RDW Coeff of Fozia 15.4 H (11.5-14.5) % Plt Count 309 (130-400) K/uL MPV 9.1 (7.4-10.4) fL Immature Gran % (Auto) 0.2 % Neut % (Auto) 73.8 % Lymph % (Auto) 17.6 % [place] % (Auto) 7.1 % Eos % (Auto) 1.1 % Baso % (Auto) 0.2 % Neut # (Auto) 7.32 H (1.4-6.5) K/uL Lymph # (Auto) 1.74 (1.2-3.4) K/uL [place] # (Auto) 0.70 H (0.11-0.59) K/uL Eos # (Auto) 0.11 (0-0.5) K/uL Baso # (Auto) 0.02 (0-0.2) K/uL Immature Gran # (Auto) 0.02 (0.00-0.02) K/uL Sodium 138 (136-145) mmol/L Potassium 3.9 (3.5-5.1) mmol/L Chloride 112 H (98-107) mmol/L Carbon Dioxide 19 L (21-32) mmol/L Anion Gap 6.0 (3-11) BUN 53 H (7-18) mg/dl Creatinine 4.36 H (0.6-1.4) mg/dl Est Cr Clr Drug Dosing 25.9 ml/min Est GFR ( Amer) 20.4 Est GFR (Non-Af Amer) 17.6 BUN/Creatinine Ratio 12.1 (10-20) Glucose 99 (70-99) mg/dl Calcium 9.5 (8.5-10.1) mg/dl Total Bilirubin 0.3 (0.2-1) mg/dl AST 14 L (15-37) U/L ALT 25 (12-78) U/L Alkaline Phosphatase 105 (45-117) U/L Total Protein 8.8 H (6.4-8.2) gm/dl Albumin 4.0 (3.4-5.0) gm/dl Globulin 4.8 H (2.5-4.0) gm/dl Albumin/Globulin Ratio 0.8 L (0.9-2) Lipase 195 (73-393) U/L Urine Color Yellow Urine Appearance Turbid A (Clear) Urine pH 6.5 (4.5-7.5) Ur Specific [place] 1.010 (1.000-1.030) Urine Protein Trace H (Negative) Urine Glucose (UA) Negative (Negative) Urine Ketones Negative (Negative) Urine Blood 3+ H (Negative) Urine Nitrite Positive A (Negative) Urine Bilirubin Negative (Negative) Urine Urobilinogen Negative (Negative) Ur Leukocyte Esterase 3+ H (Negative) Urine WBC (Auto) >30 H (0-5) /hpf Urine RBC (Auto) 10-30 H (0-4) /hpf U Hyaline Cast (Auto) 0 (0-5) /lpf U Epithel Cells (Auto) 5-10 H (0-5) /lpf Urine Bacteria (Auto) 1+ H (Negative) Administered Medications Discontinued Medications Sodium Chloride (Nss 1000ml) 1,000 mls @ 999 mls/hr IV .Q1H1M JONG Stop: 03/11/20 23:30 Last Infusion: 03/11/20 23:54 Dose: 0 mls/hr Documented by: [id number] Admin: 03/11/20 23:02 Dose: 999 mls/hr Documented by: [id number] Cefepime HCl (Maxipime) 2,000 mg in 20 mls @ 5 mls/min IV NOW STA; Protocol Stop: 03/11/20 23:22 Last Admin: 03/11/20 23:45 Dose: 5 mls/min Documented by: [id number] Piperacillin Sod/Tazobactam Sod (Zosyn) 4.5 gm in 120 mls @ 240 mls/hr IV NOW STA Stop: 03/12/20 00:24 Last Infusion: 03/12/20 00:42 Dose: 0 mls/hr Documented by: [id number] Admin: 03/11/20 23:58 Dose: 240 mls/hr Documented by: [id number] Morphine Sulfate (Morphine Sulfate 4 Mg/Ml 1 Ml Carp\Vial) 4 mg IV NOW STA Stop: 03/11/20 23:03 Last Admin: 03/11/20 23:13 Dose: 4 mg Documented by: [id number] Ondansetron HCl (Ondansetron Inj 2 Mg/Ml 2 Ml Vial) 4 mg IV NOW STA Stop: 03/11/20 22:28 Last Admin: 03/11/20 23:02 Dose: 4 mg Documented by: [id number] Piperacillin Sod/Tazobactam Sod (Piperacillin/Tazobactam 4.5 Gm/120ml D5w) Confirm Administered Dose 4.5 gm .ROUTE .STK-MED ONE Stop: 03/11/20 23:57 Last Admin: 03/11/20 23:58 Dose: Not Given Documented by: [id number] Discharge Plan Visit Data Chief Complaint: Urinary Symptoms Stated Complaint: CANT GO TO BATHROOM ED Provider: Douglas Ely Discharge Problem: ARF (acute renal failure), UTI (urinary tract infection) Forms Stand Alone Forms: [employer] Prescriptions Prescriptions: No Action No Known Home Medications RF: 0 Discharge Problem: ARF (acute renal failure) Qualifiers: Acute renal failure type: unspecified Qualified Code(s): N17.9 - Acute kidney failure, unspecified UTI (urinary tract infection) Qualifiers: Urinary tract infection type: acute cystitis Hematuria presence: with hematuria Qualified Code(s): N30.01 - Acute cystitis with hematuria
[2020-03-11] MEDS ORDERED: ONDANSETRON INJ 2 MG/ML 2 ML VIAL IV STA (22:27)
[2020-03-11] MEDS ORDERED: SODIUM CHLORIDE 0.9% 1000ML 1,000 ML IV SCH (22:30)
[2020-03-11 22:52] LABS: Basophils # (auto) 0.02 K/uL (0-0.2); Basophils % (auto) 0.2 %; Eosinophils # (auto) 0.11 K/uL (0-0.5); Eosinophils % (auto) 1.1 %; Hematocrit (blood only) 35.5 % (42-52); Hemoglobin 11.3 g/dL (14.0-18.0); Immature Granulocytes # (auto) 0.02 K/uL (0.00-0.02); Immature Granulocytes % (auto) 0.2 %; Lymphocytes # (auto) 1.74 K/uL (1.2-3.4); Lymphocytes % (auto) 17.6 %; Mean Corpuscular Hemoglobin 25.2 pg (25-34); Mean Corpuscular Hgb Conc 31.8 g/dL (32-36); Mean Corpuscular Volume 79.1 fL (80-100); Mean Platelet Volume 9.1 fL (7.4-10.4); Monocytes % (auto) 7.1 %; Neutrophils # (auto) 7.32 K/uL (1.4-6.5); Neutrophils % (auto) 73.8 %; Platelet Count 309 K/uL (130-400); RDW Coefficient of Variation 15.4 % (11.5-14.5); Red Blood Count 4.49 M/uL (4.7-6.1); White Blood Count 9.91 K/uL (4.8-10.8)
[2020-03-11] MEDS ORDERED: MoRPHine SULFATE 4 MG/ML 1 ML CARP\\VIAL IV STA (23:02)
[2020-03-11 23:08] LABS: BUN Creatinine Ratio 12.1 (10-20); Calcium 9.5 mg/dl (8.5-10.1); Creatinine Clr Calc Pharmacy 25.9 ml/min; Est GFR (African American) 20.4; Est GFR (Non-African American) 17.6; Potassium 3.9 mmol/L (3.5-5.1)
[2020-03-11 23:11] LABS: Albumin Globulin Ratio 0.8 (0.9-2); Bilirubin,Total 0.3 mg/dl (0.2-1); Globulin 4.8 gm/dl (2.5-4.0); Total Protein 8.8 gm/dl (6.4-8.2)
[2020-03-11] MEDS ORDERED: CEFEPIME 2,000 MG/20 ML VIAL IV STA (23:19)
[2020-03-11 23:23] LABS: Appearance Urine Turbid (Clear); Bacteria Urine Automated 1+ (Negative); Bilirubin Urine Negative (Negative); Blood Urine 3+ (Negative); Cast Urine Automated 0 /lpf (0-5); Color Urine Yellow; Glucose Urine UA Negative (Negative); Ketones Urine Negative (Negative); Leukocyte Esterase Urine 3+ (Negative); Nitrite Urine Positive (Negative); Protein Urine Trace (Negative); Urobilinogen Urine Negative (Negative); WBC Urine Automated >30 /hpf (0-5); pH Urine 6.5 (4.5-7.5)
[2020-03-11] MEDS ORDERED: PIPERACILL/TAZOBAC CONSULT ACTIVE PRN (23:38)
--- NOTE | 2020-03-11 23:50 | XRay Report ---
XR chest 1V portable CLINICAL HISTORY: renal failure COMPARISON STUDY: 04/18/2013 FINDINGS: The cardiac and mediastinal contours are normal. There is no evidence of focal pulmonary co nsolidation. There is no evidence of failure. No pleural effusions are visualized.[ IMPRESSION: No active disease in the chest. ACT 112: Negative or not required by law. Electronically signed by: Fermin Garcia M.D. 03/11/2020 11:49 PM
[2020-03-11] MEDS ORDERED: PIPERACILLIN/TAZOBACTAM 4.5 GM/120 ML BAG IV STA (23:55)
[2020-03-11] MEDS ORDERED: PIPERACILLIN/TAZOBACTAM 4.5 GM/120ML D5W ONE (23:56)
[2020-03-12] MEDS ORDERED: NORMOSOL-R 1,000 ML IV STA (00:50)
--- NOTE | 2020-03-12 01:32 | CT Scan Report ---
CT SCAN OF THE ABDOMEN AND PELVIS WITHOUT CONTRAST CLINICAL HISTORY: abd pain, renal failure COMPARISON STUDY: 02/14/2017 TECHNIQUE: CT scan of the abdomen and pelvis was performed from the lung bases to the proximal femurs . Images are reviewed in the axial, sagittal, and coronal planes. IV contrast was not administered fo r this examination. A dose lowering technique was utilized adhering to the principles of ALARA. CT DOSE: 382.87 mGy.cm FINDINGS: Lower chest: There is persistent right middle lobe atelectasis/scarring. There is also an area of rig ht lower lobe atelectasis/scarring. There is a stable 4 mm subpleural left lower lobe opacity. Liver: The unenhanced liver is normal in size, contour, and attenuation. There is no intrahepatic josef iary ductal dilatation. Gallbladder: Unremarkable. Spleen: Normal in size and attenuation. Pancreas: Unremarkable. Adrenal glands: Unremarkable. Kidneys: No renal calculi are visualized. There is severe bilateral hydronephrosis and hydroureter wi th bilateral renal cortical thinning. There are dilated ureters utilized to the level of the bladder. Bowel: There are no transition zones indicate bowel obstruction. There is no evidence of acute divert iculitis. Postsurgical changes involve the cecum. There are no findings to indicate acute appendiciti s. Peritoneum: There is no intraperitoneal free air or abdominal ascites. Vasculature: The abdominal aorta is normal in course and caliber. Adenopathy: There are borderline enlarged aortocaval lymph nodes. Pelvic viscera: There is a joint Gomez catheter. There is marked bladder wall thickening. There is sy mphysis diastases. Skeletal structures: No destructive osseous lesions are seen. IMPRESSION: 1. Severe bilateral hydronephrosis and hydroureter. No renal, ureteral, or bladder calculi identified 2. Indwelling Gomez catheter. Marked bladder wall thickening 3. No evidence of bowel obstruction. No evidence of free air. No evidence of acute diverticulitis. No evidence of acute appendicitis. ACT 112: Negative or not required by law. Electronically signed by: Fermin Garcia M.D. 03/12/2020 1:30 AM
--- NOTE | 2020-03-12 01:36 | History & Physical Report ---
Date of Service March 12, 2020 Assessment & Plan (1) ARF (acute renal failure): Postobstructive uropathy hx bladder exstrophy status post surgery hx chronic hydronephrosis requiring self catheterization at home, Complicated UTI history neurogenic bladder as per records Postobstructive uropathy No sepsis for now New onset anemia likely from hematuria HTN, stable currently off medications. 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 coli, Pseudomonas, Enterococcus on prior urine CS) Nephrology consult if without improvement in renal function (Patient known to [facility], Dr. Barron.) Anemia work-up DVT prophylaxis. SCDs RE hematuria Full code Text document was generated using [employer] voice recognition software. It may contain grammatical or spelling errors. Kindly contact undersigned for clarification of any documentation item in question. History of Present Illness Chief Complaint: Urinary retention Primary Care Provider: NO PCP History obtained from patient and records. Medical history significant for HTN, bladder exstrophy status post surgery, history neurogenic bladder, urolithiasis, recurrent UTIs, history chronic hydronephrosis requiring intermittent self catheterization at home, ongoing tobacco abuse. Last confinement February 2017 for renal failure, urinary retention and UTI. Patient has not been able to see medical providers in the last 2 years insurance issues. 1 week history urinary retention with achy lower abdominal discomfort and hematuria symptoms. Constipation symptoms noted as well. No fever, no chills. No chest pain, no S OB. At the ER, bladder residual noted to be 1500 cc. Subsequent drainage noted following Gomez catheter insertion. IV Cefepime given at the ER for UTI. 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 Allergies Allergy/AdvReac Type Severity Reaction Status Date / Time losartan AdvReac Mild felt sick Verified 03/12/20 03:23 as per px Home Medications Home Medications Medication Instructions Recorded Confirmed Type No Known Home Medications 03/11/20 03/11/20 History Past Med/Surg History Medical History Bladder extrophy Urinary retention with incomplete bladder emptying Surgical History H/O nephrostomy S/P appendectomy Social History Smoking Status: Current every day smoker Cigarettes Per Day: Marijuana; Second Hand Exposure: Yes; Do You Dip or Chew Tobacco: No; Tobacco Cessation Education Requested by Patient: No Hx Alcohol Use: No Hx Substance Use: No Preferred Language: Vietnamese Communication Ability: Effective Blind Cleaner Required: No Beliefs That Will Affect Care: None Current Living Situation: Alone Other Information That Helps Us Care for You: No Feels Safe at Home: Yes Safety Concerns: Feels Safe At This Time Assistive Devices: None Review of Systems Review of Systems: As per HPI, all 10 systems reviewed, all other ROS negative Physical Exam Physical Exam: GENERAL: Comfortable, pleasant, no respiratory distress SKIN: Pallor , warm HEENT: bespectacled, pale palpebral conjunctivae, no ptosis, dry buccal mucosa NECK : Supple, no tenderness CHEST : CTA, no tenderness HEART : RRR, no obvious murmurs ABDOMEN: Some distention, minimal hypogastric tenderness EXTREMITIES : No LE swelling/tenderness, no other conspicuous deformities noted NEUROLOGIC : Coherent, no facial asymmetry, no other gross focality Results & Data Results & Data ([facility]) Vital Signs (Past 12 Hours) Vital Signs Temp Pulse Pulse Resp BP BP Pulse Ox 03/11/20 23:13 88 18 135/83 99 03/11/20 22:09 37.1 C 113 H 22 150/93 H 97 Laboratory Results Laboratory Results WBC 9.91 K/uL (4.8-10.8) 03/11/20 22:36 RBC 4.49 M/uL (4.7-6.1) L 03/11/20 22:36 Hgb 11.3 g/dL (14.0-18.0) L 03/11/20 22:36 Hct 35.5 % (42-52) L 03/11/20 22:36 MCV 79.1 fL (80-100) L 03/11/20 22:36 MCH 25.2 pg (25-34) 03/11/20 22:36 MCHC 31.8 g/dL (32-36) L 03/11/20:36 RDW Std Deviation 45.0 fL (36.4-46.3) 03/11/20:36 RDW Coeff of Fozia 15.4 % (11.5-14.5) H 03/11/20:36 Plt Count 309 K/uL (130-400) 03/11/20:36 MPV 9.1 fL (7.4-10.4) 03/11/20 22:36 Immature Gran % (Auto) 0.2 % 03/11/20 22:36 Neut % (Auto) 73.8 % 03/11/20:36 Lymph % (Auto) 17.6 % 03/11/20:36 [place] % (Auto) 7.1 % 03/11/20:36 Eos % (Auto) 1.1 % 03/11/20:36 Baso % (Auto) 0.2 % 03/11/20:36 Neut # (Auto) 7.32 K/uL (1.4-6.5) H 03/11/20 22:36 Lymph # (Auto) 1.74 K/uL (1.2-3.4) 03/11/20 22:36 [place] # (Auto) 0.70 K/uL (0.11-0.59) H 03/11/20 22:36 Eos # (Auto) 0.11 K/uL (0-0.5) 03/11/20 22:36 Baso # (Auto) 0.02 K/uL (0-0.2) 03/11/20:36 Immature Gran # (Auto) 0.02 K/uL (0.00-0.02) 03/11/20 22:36 Sodium 138 mmol/L (136-145) 03/11/20 22:36 Potassium 3.9 mmol/L (3.5-5.1) 03/11/20:36 Chloride 112 mmol/L (98-107) H 03/11/20 22:36 Carbon Dioxide 19 mmol/L (21-32) L 03/11/20 22:36 Anion Gap 6.0 (3-11) 03/11/20 22:36 BUN 53 mg/dl (7-18) H 03/11/20 22:36 Creatinine 4.36 mg/dl (0.6-1.4) H 03/11/20 22:36 Est Cr Clr Drug Dosing 25.9 ml/min 03/11/20 22:36 Est GFR ( Amer) 20.4 03/11/20 22:36 Est GFR (Non-Af Amer) 17.6 03/11/20 22:36 BUN/Creatinine Ratio 12.1 (10-20) 03/11/20 22:36 Glucose 99 mg/dl (70-99) 03/11/20 22:36 Calcium 9.5 mg/dl (8.5-10.1) 03/11/20 22:36 Total Bilirubin 0.3 mg/dl (0.2-1) 03/11/20 22:36 AST 14 U/L (15-37) L 03/11/20:36 ALT 25 U/L (12-78) 03/11/20 22:36 Alkaline Phosphatase 105 U/L (45-117) 03/11/20:36 Total Protein 8.8 gm/dl (6.4-8.2) H 03/11/20 22:36 Albumin 4.0 gm/dl (3.4-5.0) 03/11/20:36 Globulin 4.8 gm/dl (2.5-4.0) H 03/11/20 22:36 Albumin/Globulin Ratio 0.8 (0.9-2) L 03/11/20 22:36 Lipase 195 U/L (73-393) 03/11/20 22:36 Urine Color Yellow 03/11/20:58 Urine Appearance Turbid (Clear) A 03/11/20:58 Urine pH 6.5 (4.5-7.5) 03/11/20:58 Ur Specific [place] 1.010 (1.000-1.030) 03/11/20:58 Urine Protein Trace (Negative) H 03/11/20:58 Urine Glucose (UA) Negative (Negative) 03/11/20:58 Urine Ketones Negative (Negative) 03/11/20:58 Urine Blood 3+ (Negative) H 03/11/20:58 Urine Nitrite Positive (Negative) A 03/11/20: Urine Bilirubin Negative (Negative) 10/22/20 22:58 Urine Urobilinogen Negative (Negative) 03/11/20 22:58 Ur Leukocyte Esterase 3+ (Negative) H 03/11/20 22:58 Urine WBC (Auto) >30 /hpf (0-5) H 03/11/20 22:58 Urine RBC (Auto) 10-30 /hpf (0-4) H 03/11/20 22:58 U Hyaline Cast (Auto) 0 /lpf (0-5) 03/11/20 22:58 U Epithel Cells (Auto) 5-10 /lpf (0-5) H 03/11/20 22:58 Urine Bacteria (Auto) 1+ (Negative) H 03/11/20 22:58 Diagnostic Findings Chest x-ray: No active disease in the chest. CT abdomen pelvis: 1. Severe bilateral hydronephrosis and hydroureter. No renal, ureteral, or bladder calculi identified 2. Indwelling Gomez catheter. Marked bladder wall thickening 3. No evidence of bowel obstruction. No evidence of free air. No evidence of acute diverticulitis. No evidence of acute appendicitis. (1) ARF (acute renal failure) Acute renal failure type: unspecified Qualified Code(s): N17.9 - Acute kidney failure, unspecified
[2020-03-12] MEDS: HYDROmorphone INJ 0.5 MG/0.5 ML SYR IV PRN ×4 (02:18→23:37)
[2020-03-12] MEDS ORDERED: POLYETHYLENE (MIRALAX) 17 GM PACK PO PRN (02:28)
[2020-03-12] MEDS ORDERED: POLYETHYLENE (MIRALAX) 17 GM PACK PO STA (02:28)
[2020-03-12] MEDS ORDERED: DOCUSATE SODIUM/SENNA 50/8.6MG TAB PO STA (02:30)
[2020-03-12] MEDS: LACTATED RINGER'S 1,000 ML IV SCH ×4 (02:35→23:43)
[2020-03-12] MEDS: PIPERACILLIN/TAZOBACTAM 3.375 GM in DEXTROSE 5% 100 ML IV SCH ×3 (03:44→19:21)
[2020-03-12] MEDS: PROMETHAZINE HCL 12.5 MG in SODIUM CHLORIDE 0.9% 50 ML IV PRN ×2 (03:44→15:43)
[2020-03-12 04:26] LABS: Basophils # (auto) 0.01 K/uL (0-0.2); Basophils % (auto) 0.1 %; Eosinophils % (auto) 1.1 %; Hemoglobin 10.5 g/dL (14.0-18.0); Lymphocytes # (auto) 2.29 K/uL (1.2-3.4); Lymphocytes % (auto) 24.6 %; Mean Corpuscular Hgb Conc 31.8 g/dL (32-36); Mean Corpuscular Volume 78.6 fL (80-100); Monocytes % (auto) 6.5 %; Neutrophils % (auto) 67.7 %; Platelet Count 269 K/uL (130-400); RDW Coefficient of Variation 15.6 % (11.5-14.5); RDW Standard Deviation 44.4 fL (36.4-46.3); Reticulocyte % 0.6 % (0.5-2.0); Reticulocytes # 0.03 10^6/uL (0.02-0.10)
[2020-03-12 04:47] LABS: BUN Creatinine Ratio 12.1 (10-20); Calcium 8.2 mg/dl (8.5-10.1); Creatinine Clr Calc Pharmacy 30.3 ml/min; Est GFR (African American) 24.6; Est GFR (Non-African American) 21.2; Ferritin 68.2 ng/ml (8-388); Potassium 4.5 mmol/L (3.5-5.1)
--- NOTE | 2020-03-12 07:27 | Urology Consultation ---
Date of Consultation March 12, 2020 Assessment & Plan (1) ARF (acute renal failure): (2) UTI (urinary tract infection): (3) Urinary retention: 25 yo M admitted with acute renal failure and suspected UTI. - Case reviewed with Dr. Howell - CT A/P reviewed - severe bilateral hydronephrosis and hydroureter, no urinary calculi noted, marked bladder wall thickening - Creatinine remains elevated but slightly improved today, continue to monitor - No acute intervention at this time - UC&S pending - continue antibiotics, follow cultures - Maintain Gomez catheter for at least 7-14 days for bladder decompression and max drainage - Pt will need to resume self-catheterization post catheter removal - Will arrange follow-up with our service outpatient for TOV and cystoscopy - Will continue to follow peripherally while inpatient History of Present Illness Reason for Consultation: Urinary retention Attending Physician: Faby Hdez DO History of Present Illness 25 yo M admitted for acute renal failure and suspected UTI. Patient presented to [facility] ED on 03/11/20 with difficulty voiding and suprapubic pain. Pt with complex history including history of bladder extrophy s/p surgery, neurogenic bladder with history of self-catheterization, chronic hydronephrosis, and recurrent UTI. Lab work on admission: creatinine 4.36, WBC 9.91. UA positive nitrates, 10-30 RBCs, >30 WBCs, 1+ bacteria. Urine culture collected. Gomez catheter was placed, [address] A/P wo con showed severe bilateral hydronephrosis and hydroureter. No renal, ureteral, or bladder calculi identified. Indwelling Gomez catheter. Marked bladder wall thickening. He was treated with IV Cefepime in ED. He was admitted for further evaluation and management. Our service is consulted for urinary retention. Former patient of our service, followed with Dr. Gerard Rendon, last office visit was in Mar 2017. He reports no urological care in interim. He reports that his insurance does not cover specialty care and he cannot afford catheters. He stopped CIC approximately 1 year ago. Reports treatment of UTIs through [facility]. States that he was taking Bactrim outpatient for suspected UTI due to cloudy and darker urine. He initially thought it was helping, but then developed worsening voiding difficulty and suprapubic pain prompting ER evaluation. Patient examined at bedside this AM. He was sleeping on arrival, arouses easily to speech. Generally feeling better since admission. Reports mild suprapubic discomfort, improved since admission. Mild right flank pain. Occasional chills, no fever. Tolerating diet. Occasional nausea, no vomiting. Last BM was 4 days ago. He reports he was given something for his bowels since admission. Gomez catheter intact, patent, draining clear yellow urine. Reports some discomfort/irritation from catheter. Chart review: Creatinine - 3.73 WBC - 9.31 UC&S - pending On IV Zosyn No additional concerns today. Allergies Allergy/AdvReac Type Severity Reaction Status Date / Time losartan AdvReac Mild felt sick Verified 03/12/20 03:23 as per px Home Medications Home Medications Medication Instructions Recorded Confirmed Type No Known Home Medications 03/11/20 03/11/20 History Patient History Medical History Bladder extrophy Urinary retention with incomplete bladder emptying Surgical History H/O nephrostomy S/P appendectomy Social History Smoking Status: Current every day smoker Cigarettes Per Day: Marijuana; Second Hand Exposure: Yes; Do You Dip or Chew Tobacco: No; Tobacco Cessation Education Requested by Patient: No Hx Alcohol Use: No Hx Substance Use: No Preferred Language: Yoruba Communication Ability: Effective 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 Beliefs That Will Affect Care: None Current Living Situation: Alone Other Information That Helps Us Care for You: No Feels Safe at Home: Yes Safety Concerns: Feels Safe At This Time Assistive Devices: Glasses Review of Systems Constitutional: as per Subjective / HPI Eyes: no problem reported Respiratory: no problem reported Cardiovascular: no problem reported Gastrointestinal: as per Subjective / HPI Genitourinary: + as per Subjective / HPI Musculoskeletal: no problem reported Integumentary: no problem reported Neurologic: no problem reported Psychiatric: no problem reported Physical Exam Constitutional: well developed and well nourished; no acute distress and not ill appearing Neck: normal visual inspection Respiratory: normal respiratory effort and able to speak in complete sentences; no respiratory distress and no labored breathing Cardiovascular: Extremities: no pedal edema Gastrointestinal (Abdomen): Inspection/Auscultation: abdomen normal to inspection; abdomen not distended Percussion/Palpation: abdomen soft; abdomen nontender and no guarding Musculoskeletal: Head/Neck/Chest: normocephalic and head atraumatic Extremities: extremities normal to inspection Skin: no rashes, warm and dry Neurologic: moves all extremities and awake Psychiatric: Orientation: alert, oriented x 3 and cooperative Genitourinary: no CVA tenderness Gomez catheter intact, patent, draining clear yellow urine Results & Data ([facility]) Vital Signs (Past 12 Hours) Vital Signs Temp Pulse Pulse Resp BP BP Pulse Ox 03/12/20 07:00 53 L 03/12/20 02:40 61 03/12/20 02:38 37.0 C 78 17 129/76 95 03/12/20 01:47 61 18 117/66 98 03/11/20 23:13 88 18 135/83 99 03/11/20 22:09 37.1 C 113 H 22 150/93 H 97 PG Care Time/CCT Total # of Minutes Spent Total Time Spent with Patient: Total time spent is greater than 50% in coordination of care (as documented) at patient's floor/unit and/or counseling patient: Coding Level of Care Code 92237 Inpt Consult Level 5 Diagnoses ARF (acute renal failure) N17.9 Acute renal failure type: unspecified UTI (urinary tract infection) N30.01 Hematuria presence: with hematuria Urinary tract infection type: acute cystitis Urinary retention R33.9 (1) UTI (urinary tract infection) Hematuria presence: with hematuria Urinary tract infection type: acute cystitis Qualified Code(s): N30.01 - Acute cystitis with hematuria (2) ARF (acute renal failure) Acute renal failure type: unspecified Qualified Code(s): N17.9 - Acute kidney failure, unspecified
[2020-03-12] MEDS: traMADol HCL 50 MG TABLET PO PRN (09:29)
[2020-03-12] MEDS: DOCUSATE SODIUM/SENNA 50/8.6MG TAB PO SCH (10:47)
[2020-03-12 13:25] LABS: Folate (Folic Acid) 5.14 ng/ml (>5.38)
--- NOTE | 2020-03-12 17:51 | Hospitalist Progress Note ---
Date of Service March 12, 2020 Assessment & Plan (1) ARF (acute renal failure): Postobstructive uropathy and recently took some Bactrim that he had on hand hx bladder exstrophy status post surgery, neurogenic bladder req CIC but he has not been doing this for 1 year bc he cannot afford materials. Discuss with Urology a cheaper option. (2) Iron deficiency anemia: Monitor as outpatient once re-establishes with a PCP. Possibly 2/2 hematuria associated with infection. (3) Urinary retention: Gomez in place and renal function is improving. Patient feeling better. (4) Complicated UTI (urinary tract infection): Zosyn pending culture results. (5) Tobacco use: encouraged to quit smoking. (6) DVT prophylaxis: SCDS/ambulation Full Code Dispo-to home when renal function improves to normal. Faby Hdez DO [facility] Hospitalist Admission and Anticipated Discharge Date Admission Date: March 12, 2020 Subjective slight suprapubic tenderness persists,but feels well better than yesterday pt has no pcp and doesn't see urology regularly has penile scar tissue needing cudet cath which is too expesive for him to afford still he needs an alternative affordable option Review of Systems Review of Systems: All systems reviewed & are unremarkable except as noted in Subjective Physical Exam Physical Exam: CONSTITUTIONAL: WNWD, vitals as above, generally well- appearing EYES: EOMI bilaterally, PERRL, normal conjunctivae, no scleral icterus ENT: external ear and nose normal, oropharynx clear, MMM RESPIRATORY: clear to auscultation bilaterally, no crackles, rales or wheezes, normal respiratory effort CARDIOVASCULAR: regular rate and rhythm, S1 and 2 heard without murmurs, gallops or rubs, no JVD, no peripheral edema GASTROINTESTINAL: soft, nontender, nondistended. Slight suprapubic tenderness to palpation. MUSCULOSKELETAL: strength 5/5 throughout, head is normocephalic and atraumatic, neck supple, normal palpation of chest wall without tenderness SKIN: warm and dry NEUROLOGIC: CN 2-12 grossly intact, normal cognition, normal speech, no gross focal deficits. PSYCHIATRIC: alert cooperative and oriented to person, place and time. Results & Data Results & Data ([facility]) Vital Signs (Past 12 Hours) Vital Signs Temp Pulse Pulse Resp BP Pulse Ox 03/12/20 16:02 36.9 C 50 L 20 123/70 97 03/12/20 14:20 64 03/12/20 11:42 36.4 C L 50 L 16 115/68 99 03/12/20 07:28 36.4 C L 47 L 16 100/50 L 100 03/12/20 07:00 53 L Laboratory Results Short CBC 03/11/20 03/12/20 Range/Units 22:36 04:06 WBC 9.91 9.30 (4.8-10.8) K/uL Hgb 11.3 L 10.5 L (14.0-18.0) g/dL Hct 35.5 L 33.0 L (42-52) % Plt Count 309 269 (130-400) K/uL BMP 03/11/20 03/12/20 22:36 04:06 Sodium 138 140 Potassium 3.9 4.5 D Chloride 112 H 115 H Carbon Dioxide 19 L 20 L BUN 53 H 45 H Creatinine 4.36 H 3.73 H D Glucose 99 94 Calcium 9.5 8.2 L Liver Function 03/11/20 Range/Units 22:36 Total Bilirubin 0.3 (0.2-1) mg/dl AST 14 L (15-37) U/L ALT 25 (12-78) U/L Alkaline Phosphatase 105 (45-117) U/L Albumin 4.0 (3.4-5.0) gm/dl Urine 03/11/20 Range/Units 22:58 Urine Color Yellow Urine Appearance Turbid A (Clear) Urine pH 6.5 (4.5-7.5) Ur Specific [place] 1.010 (1.000-1.030) Urine Protein Trace H (Negative) Urine Glucose (UA) Negative (Negative) Medications Administered Current Inpatient Medications Acetaminophen (Acetaminophen 325 Mg Tab) 650 mg PO Q6H PRN PRN Reason: Fever Stop: 04/11/20 01:29 Hydromorphone HCl (Hydromorphone Inj 0.5 Mg/0.5 Ml Syr) 0.5 mg IV Q6H PRN PRN Reason: Pain Stop: 03/26/20 01:29 Last Admin: 03/12/20 16:30 Dose: 0.5 mg Documented by: Promethazine HCl 12.5 mg/ (Sodium Chloride) 50.5 mls @ 202 mls/hr IV Q6H PRN PRN Reason: Nausea And Vomiting Stop: 04/11/20 01:29 Last Infusion: 03/12/20 15:58 Dose: Infused Documented by: Piperacillin Sod/Tazobactam (Sod 3.375 gm/ Dextrose) 115 mls @ 28.75 mls/hr IV Q8H JONG; Protocol Stop: 03/22/20 03:59 Last Infusion: 03/12/20 16:45 Dose: Infused Documented by: Lactated Ringer's (Lr) 1,000 mls @ 150 mls/hr IV .Q6H40M JONG Stop: 03/13/20 02:59 Last Admin: 03/12/20 16:50 Dose: 150 mls/hr Documented by: Miscellaneous Information (Piperacill/Tazobac Consult Active) 1 ea N/A UD PRN PRN Reason: Consult Stop: 04/10/20 23:37 Polyethylene Glycol (Polyethylene (Miralax) 17 Gm Pack) 17 gm PO DAILY PRN PRN Reason: Constipation Stop: 04/11/20 02:27 Senna/Docusate Sodium (Docusate Sodium/Senna 50/8.6mg Tab) 1 tab PO QAM JONG Stop: 04/11/20 08:59 Last Admin: 03/12/20 10:47 Dose: 1 tab Documented by: Tramadol HCl (Tramadol Hcl 50 Mg Tablet) 25 - 50 mg PO Q4H PRN PRN Reason: Pain Stop: 04/11/20 01:29 Last Admin: 03/12/20 09:29 Dose: 50 mg Documented by: (1) ARF (acute renal failure) Acute renal failure type: unspecified Qualified Code(s): N17.9 - Acute kidney failure, unspecified
[2020-03-13] MEDS ORDERED: LACTATED RINGER'S 1,000 ML IV ONE (02:51)
[2020-03-13] MEDS: PIPERACILLIN/TAZOBACTAM 3.375 GM in DEXTROSE 5% 100 ML IV SCH ×3 (03:18→20:34)
[2020-03-13 06:23] LABS: Hematocrit (blood only) 32.7 % (42-52); Hemoglobin 10.3 g/dL (14.0-18.0); Mean Corpuscular Hgb Conc 31.5 g/dL (32-36); Mean Corpuscular Volume 79.4 fL (80-100); Mean Platelet Volume 9.2 fL (7.4-10.4); Platelet Count 247 K/uL (130-400); RDW Coefficient of Variation 15.5 % (11.5-14.5); RDW Standard Deviation 45.2 fL (36.4-46.3); Red Blood Count 4.12 M/uL (4.7-6.1); White Blood Count 5.41 K/uL (4.8-10.8)
[2020-03-13 06:58] LABS: Calcium 8.9 mg/dl (8.5-10.1); Est GFR (African American) 29.2; Est GFR (Non-African American) 25.2; Potassium 4.1 mmol/L (3.5-5.1)
[2020-03-13] MEDS: DOCUSATE SODIUM/SENNA 50/8.6MG TAB PO SCH (09:53)
[2020-03-13] MEDS: FOLIC ACID 1 MG TAB PO SCH (09:53)
[2020-03-13] MEDS: FERROUS SULFATE 325 MG TAB PO SCH ×2 (09:54→18:13)
[2020-03-13] MEDS: HYDROmorphone INJ 0.5 MG/0.5 ML SYR IV PRN (09:59)
[2020-03-13] MEDS ORDERED: PHENAZOPYRIDINE HCL 200 MG TAB PO STA (11:37)
--- NOTE | 2020-03-13 11:55 | Hospitalist Progress Note ---
Date of Service March 13, 2020 Assessment & Plan (1) ARF (acute renal failure): Postobstructive uropathy 2/2 neurogenic bladder and no CIC for 1 year, worse in recent months, and recently took some Bactrim that he had on hand hx bladder exstrophy status post surgery, neurogenic bladder req CIC but he has not been doing this for 1 year bc he cannot afford materials. Discuss with Urology a cheaper option. Cont Gomez-Pyridium for discomfort. Appreciate Nephrology following. (2) Urinary retention: 2/2 neurogenic bladder and UTI. Gomez in place and renal function is improving. Patient feeling better. (3) Complicated UTI (urinary tract infection): Zosyn pending culture results. (4) Iron deficiency anemia: Monitor as outpatient once re-establishes with a PCP. Possibly 2/2 hematuria associated with infection. Started iron supplementation. (5) Folate deficiency: started folate supplementation, also. May also be contributing to anemia. Outpatient followup recommended. (6) Tobacco use: encouraged to quit smoking. (7) DVT prophylaxis: SCDS/ambulation Full Code Dispo-to home when renal function improves closer to normal. Likely closer to sunday. Pt needs to get setup with a new PCP and needs to have a urology out patient follow-up. Faby Hdez DO [facility] Hospitalist Admission and Anticipated Discharge Date Admission Date: March 12, 2020 Subjective still with some suprapubic tenderness requesting pyridium Gomez still in place tolerating PO Nephro consulted Review of Systems Review of Systems: All systems reviewed & are unremarkable except as noted in Subjective Physical Exam Physical Exam: CONSTITUTIONAL: WNWD, vitals as above, generally well- appearing EYES: normal conjunctivae, no scleral icterus ENT: external ear and nose normal, oropharynx clear, MMM RESPIRATORY: clear to auscultation bilaterally, no crackles, rales or wheezes, normal respiratory effort CARDIOVASCULAR: regular rate and rhythm, S1 and 2 heard without murmurs, gallops or rubs, no JVD, no peripheral edema GASTROINTESTINAL: soft, nontender, nondistended. Slight suprapubic tenderness to palpation. MUSCULOSKELETAL: strength 5/5 throughout, head is normocephalic and atraumatic, neck supple, normal palpation of chest wall without tenderness SKIN: warm and dry NEUROLOGIC: CN 2-12 grossly intact, normal cognition, normal speech, no gross focal deficits. PSYCHIATRIC: alert cooperative and oriented to person, place and time. Results & Data Results & Data ([facility]) Vital Signs (Past 12 Hours) Vital Signs Temp Pulse Pulse Resp BP Pulse Ox 03/13/20 10:00 64 145/81 H 03/13/20 07:22 36.4 C L 54 L 18 112/63 98 03/13/20 07:00 52 L 03/13/20 04:05 36.6 C 49 L 17 127/69 98 Laboratory Results Short CBC 03/13/20 Range/Units 05:50 WBC 5.41 (4.8-10.8) K/uL Hgb 10.3 L (14.0-18.0) g/dL Hct 32.7 L (42-52) % Plt Count 247 (130-400) K/uL BMP 03/13/20 05:50 Sodium 141 Potassium 4.1 Chloride 113 H Carbon Dioxide 22 BUN 32 H Creatinine 3.23 H D Glucose 76 Calcium 8.9 Medications Administered Current Inpatient Medications Acetaminophen (Acetaminophen 325 Mg Tab) 650 mg PO Q6H PRN PRN Reason: Fever Stop: 04/11/20 01:29 Ferrous Sulfate (Ferrous Sulfate 325 Mg Tab) 325 mg PO BIDM [facility] Stop: 04/12/20 09:04 Last Admin: 03/13/20 09:54 Dose: 325 mg Documented by: Folic Acid (Folic Acid 1 Mg Tab) 1 mg PO QAM [facility] Stop: 04/12/20 09:14 Last Admin: 03/13/20 09:53 Dose: 1 mg Documented by: Hydromorphone HCl (Hydromorphone Inj 0.5 Mg/0.5 Ml Syr) 0.5 mg IV Q6H PRN PRN Reason: Pain Stop: 03/26/20 01:29 Last Admin: 03/13/20 09:59 Dose: 0.5 mg Documented by: Promethazine HCl 12.5 mg/ (Sodium Chloride) 50.5 mls @ 202 mls/hr IV Q6H PRN PRN Reason: Nausea And Vomiting Stop: 04/11/20 01:29 Last Infusion: 03/12/20 15:58 Dose: Infused Documented by: Piperacillin Sod/Tazobactam (Sod 3.375 gm/ Dextrose) 115 mls @ 28.75 mls/hr IV Q8H [facility]; Protocol Stop: 03/22/20 03:59 Last Infusion: 03/13/20 07:18 Dose: Infused Documented by: Miscellaneous Information (Piperacill/Tazobac Consult Active) 1 ea N/A UD PRN PRN Reason: Consult Stop: 04/10/20 23:37 Phenazopyridine HCl (Phenazopyridine Hcl 200 Mg Tab) 200 mg PO NOW STA Stop: 03/13/20 11:38 Phenazopyridine HCl (Phenazopyridine Hcl 200 Mg Tab) 200 mg PO TID JONG Stop: 03/16/20 19:59 Polyethylene Glycol (Polyethylene (Miralax) 17 Gm Pack) 17 gm PO DAILY PRN PRN Reason: Constipation Stop: 04/11/20 02:27 Senna/Docusate Sodium (Docusate Sodium/Senna 50/8.6mg Tab) 1 tab PO QAM [facility] Stop: 04/11/20 08:59 Last Admin: 03/13/20 09:53 Dose: 1 tab Documented by: Tramadol HCl (Tramadol Hcl 50 Mg Tablet) 25 - 50 mg PO Q4H PRN PRN Reason: Pain Stop: 04/11/20 01:29 Last Admin: 03/12/20 09:29 Dose: 50 mg Documented by: (1) ARF (acute renal failure) Acute renal failure type: unspecified Qualified Code(s): N17.9 - Acute kidney failure, unspecified
--- NOTE | 2020-03-13 13:56 | Nephrology Consultation ---
Date of Consultation March 13, 2020 Assessment & Plan (1) ARF (acute renal failure): Reagan presented with acute kidney injury and urinary tract infection in the setting bilateral severe hydronephrosis A neurogenic bladder. Had Gomez catheter placed with more than 5 liters urine output. Renal function rapidly started to improve, creatinine down to 3.2 admission creatinine of 4.4 ( b/l cr 1.1). Electrolyte has been acceptable. Was seen by Urology and plan to continue Gomez catheter and follow up with outpatient clinic. -- expect renal function to continue to with release obstruction with Gomez catheter. -- Continue antibiotic per sensitivity -- monitor renal function electrolyte daily will follow Thank you for allowing me to participate in your patient's care. It was a pleasure to see Reagan (2) Urinary retention: (3) Complicated UTI (urinary tract infection): (4) Bilateral hydronephrosis: History of Present Illness Reason for Consultation: acute kidney injury Attending Physician: Faby Hdez, History of Present Illness Reagan Arrington is a 25-year-old young male with complicated history presented to [facility] ED on 03/11/20 with difficulty voiding and suprapubic pain. was found to have urinary tract infection, AK I with bilateral hydronephrosis and admitted further management. Nephrology consult was requested for management of acute kidney injury. Electronic medical records are reviewed in detail during patient's visit. Reagan presented with difficulty voiding and supra pubic pain for 2 days. On admission creatinine 4.4, electrolyte was acceptable. Urinalysis showed urinary tract infection. Renal ultrasound showed bilateral severe hydronephrosis. Initially started on IV cefepime and currently continued on Zosyn IV. Initial urine culture is growing gram-negative [place]. he had Gomez catheter placed with almost 5 liters urine output. Renal function started to improve and creatinine down to 3.2 today. Has h/o bladder extrophy s/p surgery, neurogenic bladder with history of self- catheterization, chronic hydronephrosis, and recurrent UTI. Baseline creati nine has been around 1.1 with history of recurrent episode of AK least since 2017. he has been previously following with Urology however has not been seeing anyone over 2 years as insurance does not cover specialty visit. Was supposed to self-catheterize which he has not been doing for almost a month prior to the admission. overall he has been feeling well without any other symptoms this morning. Allergies Allergy/AdvReac Type Severity Reaction Status Date / Time losartan AdvReac Mild felt sick Verified 03/12/20 03:23 as per px Home Medications Home Medications Medication Instructions Recorded Confirmed Type No Known Home Medications 03/11/20 03/11/20 History Patient History Medical History Bladder extrophy Urinary retention with incomplete bladder emptying Surgical History H/O nephrostomy S/P appendectomy Social History Smoking Status: Current every day smoker Cigarettes Per Day: Marijuana; Second Hand Exposure: Yes; Do You Dip or Chew Tobacco: No; Tobacco Cessation Education Requested by Patient: No Hx Alcohol Use: No Hx Substance Use: No Preferred Language: Somali Communication Ability: Effective Community Pharmacist Required: No Beliefs That Will Affect Care: None Current Living Situation: Alone Other Information That Helps Us Care for You: No Feels Safe at Home: Yes Safety Concerns: Feels Safe At This Time Assistive Devices: None Review of Systems Review of Systems: All systems reviewed & are unremarkable except as noted in HPI & below Physical Exam Constitutional: WD/WN, vitals as above well developed and well nourished; no acute distress Eyes: PERRL, conjunctivae normal, anicteric sclerae ENMT: external ear and nose normal, oropharynx normal Ears: no hearing impairment Neck: trachea midline Respiratory: normal respiratory effort, lungs clear to auscultation no cough Auscultation: no crackles, no rales and no wheezes Cardiovascular: RRR, no murmur, no edema Gastrointestinal (Abdomen): normal bowel sounds, soft, nontender, no hepat osplenomegaly Percussion/Palpation: abdomen nontender, no guarding and abdomen not rigid Musculoskeletal: Extremities: extremities normal to inspection Gait: normal gait Skin: no rashes, warm and dry Neurologic: moves all extremities and awake Psychiatric: A+Ox3, euthymic affect Results & Data ([facility]) Vital Signs (Past 12 Hours) Vital Signs Temp Pulse Pulse Resp BP Pulse Ox 03/13/20 12:00 36.5 C 51 L 18 124/78 99 03/13/20 10:00 64 145/81 H 03/13/20 07:22 36.4 C L 54 L 18 112/63 98 03/13/20 07:00 52 L 03/13/20 04:05 36.6 C 49 L 17 127/69 98 PG Care Time/CCT Total # of Minutes Spent Total Time Spent with Patient: Total time spent is greater than 50% in coordination of care (as documented) at patient's floor/unit and/or counseling patient: Coding Level of Care Code 25636 Inpt Consult Level 5 Diagnoses ARF (acute renal failure) N17.9 Acute renal failure type: unspecified Urinary retention R33.9 Complicated UTI (urinary tract infection) N39.0 Bilateral hydronephrosis N13.30 (1) ARF (acute renal failure) Acute renal failure type: unspecified Qualified Code(s): N17.9 - Acute kidney failure, unspecified
[2020-03-13] MEDS: ACETAMINOPHEN 325 MG TAB PO PRN (18:15)
[2020-03-13] MEDS: traMADol HCL 50 MG TABLET PO PRN (20:33)
[2020-03-13] MEDS: PHENAZOPYRIDINE HCL 200 MG TAB PO SCH ×2 (20:34→20:38)
[2020-03-14] MEDS: PIPERACILLIN/TAZOBACTAM 3.375 GM in DEXTROSE 5% 100 ML IV SCH ×2 (03:29→11:59)
[2020-03-14 06:31] LABS: Calcium 9.2 mg/dl (8.5-10.1); Creatinine Clr Calc Pharmacy 38.7 ml/min; Est GFR (Non-African American) 28.5
[2020-03-14] MEDS: PHENAZOPYRIDINE HCL 200 MG TAB PO SCH ×3 (08:34→19:56)
[2020-03-14] MEDS: DOCUSATE SODIUM/SENNA 50/8.6MG TAB PO SCH (08:34)
[2020-03-14] MEDS: FOLIC ACID 1 MG TAB PO SCH (08:34)
[2020-03-14] MEDS: FERROUS SULFATE 325 MG TAB PO SCH ×2 (08:35→17:43)
--- NOTE | 2020-03-14 11:40 | Nephrology Progress Note ---
Date of Service March 14, 2020 Assessment & Plan (1) ARF (acute renal failure): Reagan presented with acute kidney injury and urinary tract infection in the setting bilateral severe hydronephrosis A neurogenic bladder. Had Gomez catheter placed with more than 5 liters urine output. Renal function rapidly started to improve, creatinine down to 3.2 admission creatinine of 4.4 ( b/l cr 1.1). Electrolyte has been acceptable. Was seen by Urology and plan to continue Gomez catheter and follow up with outpatient clinic. -- Expect renal function to continue to improve slowly. -- Continue antibiotic per sensitivity -- monitor renal function electrolyte daily, okay to be discharged when medically stable. since patient has difficulty seeing a specialist, it would be okay and not to have nephrology follow-up as an outpatient but need to make sure patient follows with Urology. After discharge he should for have lab done to monitor renal function within few days and then weekly until renal function improves. labs can be monitored by Urology or myself. will follow while inpatient (2) Urinary retention: (3) Complicated UTI (urinary tract infection): (4) Bilateral hydronephrosis: Admission and Anticipated Discharge Date Admission Date: March 12, 2020 Subjective Reagan was seen and examined in his room this morning. Overall he is he is feed ing well, denies any symptom. has Gomez catheter with high urine output. P.o. intake seems to be adequate. Renal function continues to improve slowly, creatinine down to 2.9. electrolyte acceptable. Review of Systems Review of Systems: All systems reviewed & are unremarkable except as noted in HPI & below Physical Exam Constitutional: well developed and well nourished; no acute distress Respiratory: normal respiratory effort, lungs clear to auscultation Cardiovascular: RRR, no murmur, no edema Neurologic: moves all extremities and awake; not confused Psychiatric: A+Ox3, euthymic affect Results & Data ([facility]) Vital Signs (Past 12 Hours) Vital Signs Temp Pulse Resp BP Pulse Ox 03/14/20 07:53 36.7 C 53 L 18 124/81 99 PG Care Time/CCT Total # of Minutes Spent Total Time Spent with Patient: Total time spent is greater than 50% in coordination of care (as documented) at patient's floor/unit and/or counseling patient: Coding Level of Care Code 22429 Subseq Hosp Care Lvl 3 Diagnoses ARF (acute renal failure) N17.9 Acute renal failure type: unspecified Urinary retention R33.9 Complicated UTI (urinary tract infection) N39.0 Bilateral hydronephrosis N13.30 (1) ARF (acute renal failure) Acute renal failure type: unspecified Qualified Code(s): N17.9 - Acute kidney failure, unspecified
--- NOTE | 2020-03-14 16:28 | Hospitalist Progress Note ---
Date of Service March 14, 2020 Assessment & Plan (1) UTI due to extended-spectrum beta lactamase (ESBL) producing Escherichia coli: ESBL E coli growing on urine culture. Cont Zosyn and consult ID for abx recommendations. (2) ARF (acute renal failure): Postobstructive uropathy 2/2 neurogenic bladder and no CIC for 1 year, worse in recent months, and recently took some Bactrim that he had on hand hx bladder exstrophy status post surgery, neurogenic bladder req CIC but he has not been doing this for 1 year bc he cannot afford materials. Discuss with Urology a cheaper option for self-catheterization Cont Gomez-Pyridium for discomfort. Creat 2.9 (3) Urinary retention: 2/2 neurogenic bladder and UTI. Gomez in place and renal function is improving. Patient feeling better. (4) Iron deficiency anemia: Monitor as outpatient once re-establishes with a PCP. Possibly 2/2 hematuria associated with infection. Started iron supplementation. (5) Folate deficiency: started folate supplementation, also. May also be contributing to anemia. Outpatient followup recommended. (6) Tobacco use: encouraged to quit smoking. (7) DVT prophylaxis: SCDS/ambulation Full Code Dispo-to home when renal function improves closer to normal. Likely closer to sunday. Pt needs to get setup with a new PCP and needs to have a urology outpatient follow-up. Faby Hdez DO [facility] Hospitalist Admission and Anticipated Discharge Date Admission Date: March 12, 2020 Subjective feeling well pain improved with pyridium creatinine continues to improve doing well overall ESBL E coli+-placed on contact isolation Review of Systems Review of Systems: All systems reviewed & are unremarkable except as noted in Subjective Physical Exam Physical Exam: CONSTITUTIONAL: WNWD, vitals as above, generally well- appearing EYES: normal conjunctivae, no scleral icterus ENT: external ear and nose normal, oropharynx clear, MMM RESPIRATORY: clear to auscultation bilaterally, no crackles, rales or wheezes, normal respiratory effort CARDIOVASCULAR: regular rate and rhythm, S1 and 2 heard without murmurs, gallops or rubs, no JVD, no peripheral edema GASTROINTESTINAL: soft, nontender, nondistended. Slight suprapubic tenderness to palpation. MUSCULOSKELETAL: strength 5/5 throughout, head is normocephalic and atraumatic, neck supple, normal palpation of chest wall without tenderness SKIN: warm and dry NEUROLOGIC: CN 2-12 grossly intact, normal cognition, normal speech, no gross focal deficits. PSYCHIATRIC: alert cooperative and oriented to person, place and time. Results & Data Results & Data ([facility]) Vital Signs (Past 12 Hours) Vital Signs Temp Pulse Resp BP Pulse Ox 03/14/20 15:24 37.0 C 110 H 18 128/89 95 03/14/20 07:53 36.7 C 53 L 18 124/81 99 Laboratory Results [facility] 03/14/20 05:36 Sodium 139 Potassium 4.0 Chloride 109 H Carbon Dioxide 25 BUN 24 H Creatinine 2.92 H D Glucose 82 Calcium 9.2 Medications Administered Current Inpatient Medications Acetaminophen (Acetaminophen 325 Mg Tab) 650 mg PO Q6H PRN PRN Reason: Fever Stop: 04/11/20 01:29 Last Admin: 03/13/20 18:15 Dose: 650 mg Documented by: Ferrous Sulfate (Ferrous Sulfate 325 Mg Tab) 325 mg PO BIDM [facility] Stop: 04/12/20 09:04 Last Admin: 03/14/20 08:35 Dose: 325 mg Documented by: Folic Acid (Folic Acid 1 Mg Tab) 1 mg PO QAM [facility] Stop: 04/12/20 09:14 Last Admin: 03/14/20 08:34 Dose: 1 mg Documented by: Piperacillin Sod/Tazobactam (Sod 4.5 gm/ Dextrose) 120 mls @ 28.75 mls/hr IV Q8H [facility]; Protocol Stop: 03/22/20 03:59 Miscellaneous Information (Piperacill/Tazobac Consult Active) 1 ea N/A UD PRN PRN Reason: Consult Stop: 04/10/20 23:37 Phenazopyridine HCl (Phenazopyridine Hcl 200 Mg Tab) 200 mg PO TID [facility] Stop: 03/16/20 19:59 Last Admin: 03/14/20 13:26 Dose: 200 mg Documented by: Polyethylene Glycol (Polyethylene (Miralax) 17 Gm Pack) 17 gm PO DAILY PRN PRN Reason: Constipation Stop: 04/11/20 02:27 Senna/Docusate Sodium (Docusate Sodium/Senna 50/8.6mg Tab) 1 tab PO QAM [facility] Stop: 04/11/20 08:59 Last Admin: 03/14/20 08:34 Dose: 1 tab Documented by: Tramadol HCl (Tramadol Hcl 50 Mg Tablet) 25 - 50 mg PO Q4H PRN PRN Reason: Pain Stop: 04/11/20 01:29 Last Admin: 03/13/20 20:33 Dose: 50 mg Documented by: (1) ARF (acute renal failure) Acute renal failure type: unspecified Qualified Code(s): N17.9 - Acute kidney failure, unspecified
[2020-03-14] MEDS: PIPERACILLIN/TAZOBACTAM 4.5 GM in DEXTROSE 5% 100 ML IV SCH (19:52)
[2020-03-15] MEDS: PIPERACILLIN/TAZOBACTAM 4.5 GM in DEXTROSE 5% 100 ML IV SCH ×2 (04:22→12:49)
[2020-03-15] MEDS: ACETAMINOPHEN 325 MG TAB PO PRN (04:44)
[2020-03-15 06:08] LABS: Hematocrit (blood only) 38.4 % (42-52); Hemoglobin 12.1 g/dL (14.0-18.0); Mean Corpuscular Hemoglobin 24.8 pg (25-34); Mean Corpuscular Hgb Conc 31.5 g/dL (32-36); Mean Corpuscular Volume 78.7 fL (80-100); Mean Platelet Volume 9.2 fL (7.4-10.4); Platelet Count 275 K/uL (130-400); RDW Coefficient of Variation 14.7 % (11.5-14.5); RDW Standard Deviation 42.2 fL (36.4-46.3); Red Blood Count 4.88 M/uL (4.7-6.1); White Blood Count 6.88 K/uL (4.8-10.8)
[2020-03-15 06:49] LABS: BUN Creatinine Ratio 9.3 (10-20); Calcium 9.1 mg/dl (8.5-10.1); Creatinine Clr Calc Pharmacy 41.5 ml/min; Est GFR (Non-African American) 31.1; Potassium 3.8 mmol/L (3.5-5.1)
[2020-03-15] MEDS: PHENAZOPYRIDINE HCL 200 MG TAB PO SCH ×2 (08:12→14:54)
[2020-03-15] MEDS: DOCUSATE SODIUM/SENNA 50/8.6MG TAB PO SCH (08:13)
[2020-03-15] MEDS: FOLIC ACID 1 MG TAB PO SCH (08:13)
[2020-03-15] MEDS: FERROUS SULFATE 325 MG TAB PO SCH ×2 (08:13→17:48)
--- NOTE | 2020-03-15 10:31 | Nephrology Progress Note ---
Date of Service March 15, 2020 Assessment & Plan (1) ARF (acute renal failure): Reagan presented with acute kidney injury and urinary tract infection in the setting bilateral severe hydronephrosis A neurogenic bladder. Had Gomez catheter placed with more than 5 liters urine output. Renal function rapidly started to improve, creatinine down to 3.2 admission creatinine of 4.4 ( b/l cr 1.1). Electrolyte has been acceptable. Was seen by Urology and plan to continue Gomez catheter and follow up with outpatient clinic. Slow recovery from recent PATRICK with obstructive uropathy. -- Expect renal function to continue to improve slowly. Advised to maintain adequate hydration while having high UO. Avoid all NSAID's -- Continue antibiotic per sensitivity -- monitor renal function electrolyte daily, okay to be discharged when medically stable. since patient has difficulty seeing a specialist, it would be okay and not to have nephrology follow-up as an outpatient but need to make sure patient follows with Urology. After discharge he should for have lab done to monitor renal function within few days and then weekly until renal function improves. labs can be monitored by Urology or myself. will sign off. (2) Urinary retention: (3) Complicated UTI (urinary tract infection): (4) Bilateral hydronephrosis: Admission and Anticipated Discharge Date Admission Date: March 12, 2020 Subjective Reagan was seen and examined in his room this morning. Overall he is he is feeding well, denies any symptom. has Gomez catheter with high urine output. P.o. intake seems to be adequate. Renal function continues to improve slowly, creatinine down to 2.7, electrolyte acceptable. Review of Systems Review of Systems: All systems reviewed & are unremarkable except as noted in HPI & below Physical Exam Constitutional: well developed and well nourished; no acute distress Respiratory: normal respiratory effort, lungs clear to auscultation Cardiovascular: RRR, no murmur, no edema Neurologic: moves all extremities and awake; not confused Psychiatric: A+Ox3, euthymic affect Results & Data ([facility]) Vital Signs (Past 12 Hours) Vital Signs Temp Pulse Resp BP Pulse Ox 03/15/20 07:13 36.4 C L 50 L 20 103/61 95 03/14/20 23:00 36.6 C 113 H 18 129/79 96 PG Care Time/CCT Total # of Minutes Spent Total Time Spent with Patient: Total time spent is greater than 50% in coordination of care (as documented) at patient's floor/unit and/or counseling patient: Coding Level of Care Code 43991 Subseq Hosp Care Lvl 3 Diagnoses ARF (acute renal failure) N17.9 Acute renal failure type: unspecified Urinary retention R33.9 Complicated UTI (urinary tract infection) N39.0 Bilateral hydronephrosis N13.30 (1) ARF (acute renal failure) Acute renal failure type: unspecified Qualified Code(s): N17.9 - Acute kidney failure, unspecified
--- NOTE | 2020-03-15 17:22 | Discharge Summary ---
Date of Service March 15, 2020 Admission HPI Per Admitting Provider History obtained from patient and records. Medical history significant for HTN, bladder exstrophy status post surgery, history neurogenic bladder, urolithiasis, recurrent UTIs, history chronic hydronephrosis requiring intermittent self catheterization at home, ongoing tobacco abuse. Last confinement February 2017 for renal failure, urinary retention and UTI. Patient has not been able to see medical providers in the last 2 years insurance issues. 1 week history urinary retention with achy lower abdominal discomfort and hematuria symptoms. Constipation symptoms noted as well. No fever, no chills. No chest pain, no S OB. At the ER, bladder residual noted to be 1500 cc. Subsequent drainage noted following Gomez catheter insertion. IV Cefepime given at the ER for UTI. 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 Admission Exam Per Admitting Provider GENERAL: Comfortable, pleasant, no respiratory distress SKIN: Pallor , warm HEENT: bespectacled, pale palpebral conjunctivae, no ptosis, dry buccal mucosa NECK : Supple, no tenderness CHEST : CTA, no tenderness HEART : RRR, no obvious murmurs ABDOMEN: Some distention, minimal hypogastric tenderness EXTREMITIES : No LE swelling/tenderness, no other conspicuous deformities noted NEUROLOGIC : Coherent, no facial asymmetry, no other gross focality Principal Diagnosis Acute renal failure Acute UTI 2/2 ESBL E coli Chronic neurogenic bladder Acute urinary retention Folate deficiency Iron deficiency anemia Tobacco Use Discharge Exam CONSTITUTIONAL: WNWD, generally well-appearing EYES: normal conjunctivae, no scleral icterus ENT: external ear and nose normal, oropharynx clear, MMM RESPIRATORY: clear to auscultation bilaterally, no crackles, rales or wheezes, normal respiratory effort CARDIOVASCULAR: regular rate and rhythm, S1 and 2 heard without murmurs, gallops or rubs, no JVD, no peripheral edema GASTROINTESTINAL: soft, nontender, nondistended. MUSCULOSKELETAL: strength 5/5 throughout, head is normocephalic and atraumatic, neck supple, normal palpation of chest wall without tenderness SKIN: warm and dry NEUROLOGIC: CN 2-12 grossly intact, normal cognition, normal speech, no gross focal deficits. PSYCHIATRIC: alert cooperative and oriented to person, place and time. Discharge Data Allergies Allergy/AdvReac Type Severity Reaction Status Date / Time losartan AdvReac Mild felt sick Verified 03/12/20 03:23 as per px Consultations 03/11/20 23:29 ED Decision to Admit Stat 03/12/20 02:28 Consult Urology Routine 03/13/20 08:57 Consult Nephrology Routine 03/14/20 08:25 Consult Infectious Diseases Routine Ordered Studies 03/12/20 00:19 CT abd pelvis wo con Urgent Hospital Course (1) UTI due to extended-spectrum beta lactamase (ESBL) producing Escherichia coli: (2) ARF (acute renal failure): (3) Urinary retention: (4) Iron deficiency anemia: (5) Folate deficiency: (6) Tobacco use: The patient is a 25-year-old man status post bladder exstrophy surgery with a history of neurogenic bladder and recurrent UTIs requiring intermittent self-catheterization at home who presented to the hospital with 1 week of urinary retention associated with lower abdominal discomfort and hematuria. Work-up revealed an ESBL E. coli UTI, and acute urinary retention requiring a Gomez catheter. The Gomez catheter stayed in place and his acute renal failure secondary to postobstructive uropathy and recent Bactrim use improve day by day. Nephrology was consulted and followed him during his hospitalization. He did receive Zosyn initially during the hospitalization until ID was consulted and recommended a 14-day course of ciprofloxacin. The patient reports being unable to self catheterize at home as he is unable to afford the catheters required for use. This will need to be addressed by urology in follow-up. He was discharged with Gomez catheter in place and a discharge creatinine of 2.7. He was given a follow-up appointment with primary care locally and instructed he will need a basic metabolic profile in 1 week time to ensure his creatinine has resolved to normal. He verbalized understanding with intent to comply. Additionally, work- up also revealed evidence of anemia with iron and folate deficiency. Supplementation was provided upon discharge and further investigation should be performed as outpatient. It was strongly recommended that he quit smoking as this is bad for his health and NicoDerm patches were provided to help in this effort. At time of discharge she was hemodynamically stable and afebrile and tolerating p.o. He was oxygenating well on room air and mentating and ambulating at baseline. Again he was discharged with Gomez catheter in place and a recommendation for a follow-up with [facility] in 7 to 14 days for trial of void in the office. Total Time Total Time Spent Total Time Spent (In Minutes): 60 Total Time Includes: Examination of the Patient, Discharge Planning, Medication Reconciliation, Communication With Other Providers and Other (orchestrated foll owup appointments/instructed patient) Discharge Plan Discharge Items Patient Disposition: Home - Self-Care Reason For Visit: ARF Discharge Diagnosis: Acute renal failure Acute UTI 2/2 ESBL E coli Chronic neurogenic bladder Condition on Discharge: Good Activity: Resume your previous activity Non-emergency contact: Primary Care Provider Call non-emergency contact if: you have any medication questions, your symptoms worsen, your pain is not controlled, your pain is worsening, your pain is unusual for you, your pain is concerning for you and you have a fever Follow-up/Referrals: Ramana Zuniga MD [Physician] - 03/22/20 1:00 pm Vasu Deluca MD [Physician] - (Date & Time 03/19/2020 11:20 AM Provider Vasu Deluca MD Department [facility] ) Diet: Regular Addtl Attending Provider Instructions: Please take all medications as instructed on discharge list below. You are being placed on 10 more days of antibiotics to treat your multi-drug resistant bacteria in your urine. It is strongly recommended that you have nonfasting bloodwork in one week to ensure your kidney function is returning to normal. This will be ordered by Dr. Deluca, your new primary care provider (PCP). Please follow-up with him at the date/time above for a follow-up to this hospitalization. While you were hospitalized, you were also found to be anemic. In the investig ation of this, your folate and iron were found to be deficient which may be contributing to your anemia. You are being given supplementation for both, and this will need to be further discussed and monitored by your PCP on follow-up. As discussed you will need to follow-up with [facility] in 7-14 days for a trial of voiding (removal of Gomez catheter) in the office. Please contact them to set this up at the following number[facility] Nasir Howell [address] [place] [address], [place] [id number] It is strongly recommended that you quit smoking as it is terrible for your health! Nicotine patches have been provided for you to try, and these can be weaned down by your PCP. It was a pleasure taking care of you! Please call if you have any questions or problems. You can reach a [facility] hospitalist on duty at [facility] 24 hours a day by calling [phone]. Take care of yourself. Faby Hdez, [facility] Center[facility] Pending Studies at Discharge: No Stand-Alone Forms: [facility], Work/School Release (Inpt), Smoking Cessation Medications and DC Order Prescriptions: New ferrous sulfate 325 mg (65 mg iron) Tablet,Delayed Release (Dr/Ec) 325 mg PO BIDM Qty: 60 RF: 1 folic acid 1 mg Tablet 1 mg PO QAM Qty: 30 RF: 1 nicotine [Nicoderm CQ] 21 mg/24 hr patch 24 hour 1 patch transdermal DAILY Qty: 14 RF: 1 ciprofloxacin HCl [Cipro] 500 mg tablet 500 mg PO BID Qty: 20 RF: 0 Discharge Orders: Discharge Order (Routine); Ordered 03/15/20 Ordered By: Faby Hdez Admission Data Admit Date/Time: 03/12/20 01:37 Attending Provider: Faby Hdez Admit Provider: Gurmeet Tesfaye Primary Care Provider: PCP,NO Other Providers: Gurmeet Tesfaye ; Jacques Chávez ; Javier Champagne ; Gerard Rendon I. ; Ramana Zuniga ; Kalyani Devine ; Shivani Henson ; Nasir Howell ; Jayashree Lynne ; Catia Warren ; Mahogany Chew ; Jeevan Perera ; Lesly Carreon ; Katelyn Fisher ; Jazzy Barron Carlos M. ; Evelia Benitez ; Marvin Valderrama I. ; Felipe Turner II ; Donna Jones ; Leandra,Vasu A. Other Interventions: Discharge Summary Assessment (RN) Last Done: 03/15/20 17:40
== END 2020-03-15 18:09 | disposition home or self-care (01) | DRG 690 ==
LOC: ED 22:06 → 2W 03-12 01:37